=== PATIENT | male | born 1960 | race Caucasian/White ===

== ENCOUNTER 2016-03-11 15:41 | Inpatient (IN) | payer OTHER ==
--- NOTE | 2016-03-11 15:53 | ED Physician Chart ---
Chief Complaint/HPI - Patient Information Date Seen:: 03/11/16 Time Seen:: 15:45 Chief Complaint:: infection History of Present Illness:: 55-year-old male with history of metastatic colon cancer, ostomy site nephrostomy tube, brought in with acute, worsening, severe, abdominal wall infection for the past week. Has associated generalized weakness. Historian:: Patient, EMS Review:: Nurse's Note Reviewed, EMS run form Reviewed, Transfer documents Reviewed Review of Systems - Review of Systems Other: Complete system review otherwise unremarkable except as noted in HPI. Past Medical History - Past Medical History Past Medical History: Other (metastatic colon cancer, acute kidney failure, cachexia) Family History: None Social History: Non Smoker, No Alcohol, No Drug Use, Care Facility Surgical History: other (diverting colostomy partial colonic resection, nephrostomy tube placement) Psychiatricy History: None Medication: Reviewed Family Medical History - Family Member Mother History Unknown: Yes Other Medical History: denies family medical history Physical Exam - Physical Examination Other:: INITIAL VITAL SIGNS: Reviewed by me GENERAL: Alert and interactive. No acute distress. Cachectic HEAD: Head is normocephalic and atraumatic EYES: EOMI. . No scleral icterus. No conjunctival injection ENT: Moist mucous membranes. NECK: Supple. No masses. Full range of motion RESPIRATORY: No tachypnea. Clear breath sounds bilaterally. No wheezing, rales, or rhonchi CV: Regular rate and rhythm. No murmurs, rubs, or gallops ABDOMEN: There is an ostomy bag and nephrostomy tube. The mid abdomen around the umbilicus is an open abscess wound with purulent discharge and surrounding erythema and cellulitis. EXTREMITIES: No deformity. No cyanosis. No edema. SKIN: Warm and dry. No obvious rashes. NEUROLOGIC: Alert and oriented. Face is symmetric. Speech is normal. Moves all extremities equally. Motor and sensory distally intact. Labs/Radiology/EKG Results - Lab Results Results: Lab Results 03/11/16 03/11/16 03/11/16 Range/Units 16:00 16:00 16:00 WBC 9.4 (4.8-10.8) Th/cmm RBC 2.59 L (4.30-5.70) Mil/cmm Hgb 7.2 L* (13.2-17.3) gm/dL Hct 21.6 L* (39.0-49.0) % MCV 83.4 (80-99) fl MCH 27.6 (26.0-30.0) pg MCHC Differential 33.1 (28.0-36.0) pg RDW 15.5 (11.5-20.0) % Plt Count 293 (150-400) Th/cmm MPV 7.3 fl Band Neutrophils % 6 (0-10) % Neutrophils (Manual) 88 H (40-80) % Lymphocytes 3 L (20-50) % Monocytes 3 (2-10) % Eosinophils 0 (0-5) % Basophils 0 (0-3) % Platelet Estimate ADEQUATE (NORMAL) Platelet Morphology NORMAL (NORMAL) Anisocytosis 1+ RBC Morph Micro Appear ABNORMAL (NORMAL) PT 12.9 H (9.5-11.5) SECONDS INR 1.28 (0.5-1.4) PTT (Actin FS) 26.3 (26.0-38.0) SECONDS Sodium (136-145) mEq/L Potassium (3.5-5.1) mEq/L Chloride (98-107) mEq/L Carbon Dioxide (21.0-31.0) mEq/L Anion Gap (7.0-16.0) BUN (7-25) mg/dL Creatinine (0.7-1.3) mg/dL Est GFR ( Amer) ml/min Est GFR (Non-Af Amer) ml/min BUN/Creatinine Ratio Glucose (70-105) mg/dL Whole Bld Lactic Acid (0.60-2.00) mmol/L Calcium (8.6-10.3) mg/dL Total Bilirubin (0.3-1.0) mg/dL AST (13-39) U/L ALT (7-52) U/L Alkaline Phosphatase (34-104) U/L Total Protein (6.0-8.3) gm/dL Albumin (4.2-5.5) gm/dL Globulin gm/dL Albumin/Globulin Ratio (1.0-1.8) Urine Source [place] Urine Color YELLOW Urine Clarity CLEAR (CLEAR) Urine pH 5.5 Ur Specific [place] 1.015 (1.005-1.030) Urine Protein 30 H (NEGATIVE) mg/dL Urine Glucose (UA) NEGATIVE (NEGATIVE) mg/dL Urine Ketones NEGATIVE (NEGATIVE) mg/dL Urine Blood SMALL H (NEGATIVE) Urine Nitrate NEGATIVE (NEGATIVE) Urine Bilirubin NEGATIVE (NEGATIVE) Urine Urobilinogen 0.2 (0.2 - 1.0) E.U./dL Ur Leukocyte Esterase SMALL H (NEGATIVE) Urine RBC 0-2 H (0-5) /hpf Urine WBC 0-2 (0-5) /hpf Ur Epithelial Cells RARE (FEW) /lpf Urine Bacteria FEW (NONE SEEN) /hpf 03/11/16 03/11/16 Range/Units 16:00 16:00 WBC (4.8-10.8) Th/cmm RBC (4.30-5.70) Mil/cmm Hgb (13.2-17.3) gm/dL Hct (39.0-49.0) % MCV (80-99) fl MCH (26.0-30.0) pg MCHC Differential (28.0-36.0) pg RDW (11.5-20.0) % Plt Count (150-400) Th/cmm MPV fl Band Neutrophils % (0-10) % Neutrophils (Manual) (40-80) % Lymphocytes (20-50) % Monocytes (2-10) % Eosinophils (0-5) % Basophils (0-3) % Platelet Estimate (NORMAL) Platelet Morphology (NORMAL) Anisocytosis RBC Morph Micro Appear (NORMAL) PT (9.5-11.5) SECONDS INR (0.5-1.4) PTT (Actin FS) (26.0-38.0) SECONDS Sodium 122 L (136-145) mEq/L Potassium 4.9 (3.5-5.1) mEq/L Chloride 86 L (98-107) mEq/L Carbon Dioxide 24.0 (21.0-31.0) mEq/L Anion Gap 16.9 H (7.0-16.0) BUN 99 H* (7-25) mg/dL Creatinine 2.9 H (0.7-1.3) mg/dL Est GFR ( Amer) 29.1 ml/min Est GFR (Non-Af Amer) 24.0 ml/min BUN/Creatinine Ratio 34.1 Glucose 48 L (70-105) mg/dL Whole Bld Lactic Acid 0.91 (0.60-2.00) mmol/L Calcium 7.6 L (8.6-10.3) mg/dL Total Bilirubin 0.6 (0.3-1.0) mg/dL AST 21 (13-39) U/L ALT 16 (7-52) U/L Alkaline Phosphatase 84 (34-104) U/L Total Protein 6.6 (6.0-8.3) gm/dL Albumin 2.2 L (4.2-5.5) gm/dL Globulin 4.4 gm/dL Albumin/Globulin Ratio 0.5 L (1.0-1.8) Urine Source Urine Color Urine Clarity (CLEAR) Urine pH Ur Specific [place] (1.005-1.030) Urine Protein (NEGATIVE) mg/dL Urine Glucose (UA) (NEGATIVE) mg/dL Urine Ketones (NEGATIVE) mg/dL Urine Blood (NEGATIVE) Urine Nitrate (NEGATIVE) Urine Bilirubin (NEGATIVE) Urine Urobilinogen (0.2 - 1.0) E.U./dL Ur Leukocyte Esterase (NEGATIVE) Urine RBC (0-5) /hpf Urine WBC (0-5) /hpf Ur Epithelial Cells (FEW) /lpf Urine Bacteria (NONE SEEN) /hpf Assessment - Assessment General Assessment: Critical Care Time: 35 minutes Treatments/Evaluations: Close monitoring and treatment of unstable vital signs, cardiorespiratory, and neurologic status, while maintaining tight balance of fluid, respiratory, and cardiac interventions. This time includes discussing the case with the patient and the patient's family. This time does not include all procedures stated elsewhere in this record. This time also includes reviewing old records, labs and radiological studies. This time includes examining and re-examining the patient. Additionally, this time also includes arranging care with admitting and consulting physicians. Excludes all billable procedures: Yes This condition life threatening/high prob of deterioration: Yes ED Septic Shock - . Is Septic Shock (SBP<90, OR Lactate>4 mmol\L) present?: No Reassessment (Disposition) - Reassessment Reassessment:: Patient has metastatic colon cancer. He has multiple issues happening. #1 he has a very severe abscess on the abdomen with surrounding cellulitis. Concerned about a fistula in track and may return for this abscess. He received IV vancomycin for this. This BUNs is 99. He received IV fluids. He has severe hyponatremia. His blood glucose was 40s, received IV D50. Hemoglobin is 7.2. We did order 2 units of PRBCs to be transfused stat given that the blood pressure was 92 systolic and was likely flirting with hemodynamic instability. Discussed the case in detail with Dr. Wynn. He expressed good understanding of all the patient's issues. He will admit the patient to his service for further workup and treatment. Reassessment Condition:: Improved - Diagnosis Diagnosis:: Abdominal wall cellulitis with abdominal abscess Acute anemia, unspecified Hypoglycemia Hyponatremia Severely elevated BUN Metastatic colon cancer - Patient Disposition Discharge/Transfer:: Acute Care w/in this hosp Admitted to:: Telemetry Admitting Medical Physician:: Cas Wynn Time:: 17:10 Condition at Disposition:: Improved
[2016-03-11] MEDS ORDERED: Sodium Chloride 0.9% 1,000 ML IV ONE (15:54)
[2016-03-11 16:12] LABS: MEAN CELL VOLUME 83.4 fl (80-99); MEAN PLATELET VOLUME 7.3 fl
[2016-03-11 16:14] LABS: MEAN CORPUSCULAR HEMOGLOBIN 27.6 pg (26.0-30.0); MEAN CORPUSCULAR HGB CONC 33.1 pg (28.0-36.0); PLATELET COUNT 293 Th/cmm (150-400); RED BLOOD COUNT 2.59 Mil/cmm (4.30-5.70); RED CELL DISTRIBUTION WIDTH 15.5 % (11.5-20.0); WHITE BLOOD COUNT 9.4 Th/cmm (4.8-10.8)
[2016-03-11 16:28] LABS: HEMATOCRIT 21.6 % (39.0-49.0); HEMOGLOBIN 7.2 gm/dL (13.2-17.3)
[2016-03-11 16:32] LABS: ALB/GLOB RATIO 0.5 (1.0-1.8); ANION GAP 16.9 (7.0-16.0); BILIRUBIN,TOTAL 0.6 mg/dL (0.3-1.0); BUN/CREATININE RATIO 34.1; CALCIUM SERUM 7.6 mg/dL (8.6-10.3); CREATININE - SERUM 2.9 mg/dL (0.7-1.3); POTASSIUM SERUM 4.9 mEq/L (3.5-5.1)
[2016-03-11 16:36] LABS: URINE BILIRUBIN NEGATIVE (NEGATIVE); URINE COLOR YELLOW; URINE GLUCOSE (UA) NEGATIVE (NEGATIVE); URINE KETONE NEGATIVE (NEGATIVE)
[2016-03-11 16:37] LABS: URINE BACTERIA FEW /hpf (NONE SEEN); URINE BLOOD SMALL (NEGATIVE); URINE EPITHELIAL CELLS RARE /lpf (FEW); URINE PH 5.5; URINE PROTEIN 30 mg/dL (NEGATIVE); URINE RBC 0-2 /hpf (0-5); URINE UROBILINOGEN 0.2 E.U./dL (0.2 - 1.0); URINE WBC 0-2 /hpf (0-5)
[2016-03-11 16:39] LABS: INR 1.28 (0.5-1.4); PROTHROMBIN TIME (TEST) 12.9 SECONDS (9.5-11.5)
[2016-03-11] MEDS ORDERED: Dextrose 50% 50 mL Abboject IVP STA (16:52)
[2016-03-11] MEDS ORDERED: Dextrose 50% 50 mL Abboject IVP ONE (16:53)
[2016-03-11 16:59] LABS: ANISOCYTOSIS 1+; BAND NEUTROPHILE 6 % (0-10); BASOPHIL 0 % (0-3); EOSINOPHIL 0 % (0-5); NEUTROPHILS 88 % (40-80); PLATELET ESTIMATE ADEQUATE (NORMAL); PLATELET MORPHOLOGY NORMAL (NORMAL); TOTAL CELLS COUNTED 100
[2016-03-11] MEDS ORDERED: Sodium Chloride 0.9% 1,000 ML IV SCH (18:37)
[2016-03-11] MEDS ORDERED: Diatrizoate Meglumine/Diatri 30 mL Sol ONE (19:22)
[2016-03-12 04:23] LABS: % BASOPHILS 0.1 % (0.0-2.0); % EOSINOPHILS 0.2 % (0.0-5.0); % LYMPHOCYTES 5.2 % (20.0-50.0); % MONOCYTES 5.3 % (2.0-10.0); % NEUTROPHILS 89.2 % (40.0-80.0); MEAN CORPUSCULAR HEMOGLOBIN 28.8 pg (26.0-30.0); MEAN CORPUSCULAR HGB CONC 33.9 pg (28.0-36.0); MEAN PLATELET VOLUME 7.3 fl; NEUTROPHILE ABSOLUTE 8.4 Th/cmm (1.8-8.0); RED BLOOD COUNT 2.69 Mil/cmm (4.30-5.70); RED CELL DISTRIBUTION WIDTH 14.8 % (11.5-20.0); WHITE BLOOD COUNT 9.4 Th/cmm (4.8-10.8)
[2016-03-12 04:27] LABS: HEMOGLOBIN 7.7 gm/dL (13.2-17.3)
[2016-03-12 04:28] LABS: HEMATOCRIT 22.8 % (39.0-49.0)
[2016-03-12 04:30] LABS: PLATELET COUNT 214 Th/cmm (150-400)
[2016-03-12 04:34] LABS: ALB/GLOB RATIO 0.5 (1.0-1.8); ANION GAP 12.8 (7.0-16.0); BILIRUBIN,TOTAL 1.5 mg/dL (0.3-1.0); BUN/CREATININE RATIO 33.6; CARBON DIOXIDE 24.9 mEq/L (21.0-31.0); CREATININE - SERUM 2.8 mg/dL (0.7-1.3); MAGNESIUM 2.2 mg/dL (1.9-2.7); POTASSIUM SERUM 4.7 mEq/L (3.5-5.1)
[2016-03-12] MEDS ORDERED: MORPHINE SULFATE PO SCH (09:00)
[2016-03-12] MEDS ORDERED: PPN D20%/AMI 8.5% IV SCH (10:30)
--- NOTE | 2016-03-12 10:41 | Diagnostic Imaging Report ---
Portable chest x-ray History: Cough Allowing for portable technique the heart size is normal. No focal pulmonary parenchymal processes. No hilar or mediastinal abnormalities. Impression: No acute abnormalities.
--- NOTE | 2016-03-12 10:50 | History & Physical ---
CHIEF COMPLAINT: Abdominal pain, abdominal redness, swelling. HISTORY OF PRESENT ILLNESS: This is a 55-year-old gentleman who underwent a colostomy about a year ago after he was diagnosed with metastatic colon cancer. He apparently also underwent a nephrostomy placement at that time and has been doing relatively well until a few days ago when he started noticing swelling, redness and now drainage from the ostomy site. He could not specify as to how long the problem has been ongoing, but it has been at least for a few weeks. He is a poor historian, but he denies any fever, chills or any UTI symptomatology. Pertinent findings on admission include H and H 10/02 and sodium of 122, BUN 99, creatinine 2.9. The patient has been admitted to telemetry for further management and care. PAST MEDICAL HISTORY: As noted above, metastatic colon cancer with partial colonic resection, partial colostomy, also history of nephrostomy tube placement. FAMILY HISTORY: Likely noncontributory. SOCIAL HISTORY: He currently denies any smoking. No alcohol. No drug usage. Lives at care facility. ALLERGIES: NKDA. OUTPATIENT MEDICATIONS: MS Contin 90 mg q. 8 hours, Lasix 40 mg every day, hydromorphone 6 mg q. 1 hour p.r.n., Sinemet 650 q. 6 p.r.n. for mild to moderate pain, lorazepam 0.5 q. 6 p.r.n. for anxiety and Compazine 10 mg q. 6 for nausea and vomiting. REVIEW OF SYSTEMS: CONSTITUTIONAL: He denies any fever or chills. CARDIAC: No chest pain or palpitations. PULMONARY: No cough or phlegm production. GASTROINTESTINAL: He denies any nausea, vomiting, any diarrhea noted from the ostomy bag, any constipation, any bloody stools. GENITOURINARY: Denies any dysuria, hematuria, or anuria. PHYSICAL EXAMINATION: VITAL SIGNS: Temperature 97.3, pulse 75, blood pressure 76/51, respirations 18, satting 96-98% on room air. GENERAL: He is a well-developed, thin, cachectic appearing male, not in acute distress. HEAD AND NECK: Normocephalic, atraumatic. Pupils are reactive to light. CARDIOVASCULAR: Regular rate and rhythm. LUNGS: Decreased but clear to auscultation bilaterally. ABDOMEN: There is an extensive area of redness and swelling from the umbilical area down to the nephrostomy tube. There is a surrounding erythema. There is an open abscess around the wound. It is warm to touch. The ostomy bag appears to be in place. EXTREMITIES: Lower extremities, there is no clubbing, cyanosis or edema. LABORATORY DATA: White blood cells 9.4, H and H 7/21 with 88% neutrophils. INR is 1.28. Sodium 122, potassium 4.9, chloride 86, CO2 24, BUN 99, creatinine 2.9, glucose 48, calcium 7.6. LFTs were essentially within normal limits. Albumin 2.2. Lipase is 7. UA shows small blood, small leukocyte esterase. DIAGNOSTICS AND PROCEDURES: There was a CT of the abdomen and pelvis done with p.o. 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 There are few pockets of gas noted likely extraluminal, questionable pelvic mass and bilateral nephrostomies. IMPRESSION: 1. 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 2. Anemia. 3. Azotemia/renal insufficiency. 4. Hyponatremia. 5. History of colon cancer, status post partial resection with cholecystectomy. 6. History of nephrostomy tube. PLAN: The patient has been admitted to telemetry for close monitoring. The patient has been placed on IV vancomycin and has been cultured from the wound. He also has been placed on IV fluids NS at 100 mL per hour. Two units of PRBC had been transfused. His Lasix has been withheld for the time being and a surgical as well as a nephro eval have also been ordered. An ultrasound of the abdomen will be asked for and will consider CT scan with IV contrast once his renal function improves. Daily labs will be done. JOB# [id number] DANIELITO
--- NOTE | 2016-03-12 11:40 | Diagnostic Imaging Report ---
CT scan of the abdomen without intravenous contrast HISTORY: Pain, fistula, abscess Total DLP equals 205 CTDI equals 6.4 Axial sections were obtained from the xiphoid process down to the iliac crest. Exam is very limited due to a paucity of intra-abdominal fat. Poor delineation of organ margins and bowel wall margins. No focal lesions seen within the liver. The spleen appears normal. There is a somewhat dilated air-filled contrast-filled stomach. The margins of the pancreas are not well visualized. The right kidney is associated with a nephrostomy tube. Poor delineation of the renal collecting system. This poor delineation the margin of the left kidney that is also associated with a nephrostomy tube without obvious severe hydronephrosis. Limited visualization of the upper pelvis is very limited. Again, bowel wall margins and margins of the musculature cannot be clearly defined. IMPRESSION: 1. Very Limited/suboptimal exam. The pelvis is not included in the examination. 2. Findings consistent with ostomy over the lower mid abdomen. There appears to be contrast within the subcutaneous tissues suggesting cutaneous enteric fistula. An antegrade contrast CT exam through the ostomy may be helpful for further assessment. 3. Bilateral nephrostomy tubes
[2016-03-12] MEDS: HYDROmorphone 2 mg/mL 1mL Vial IVP PRN (12:14)
--- NOTE | 2016-03-12 15:33 | Diagnostic Imaging Report ---
Abdominal ultrasound (Limited), abdominal wall Sonographic sector images obtained about the patient's ostomy site. Images are very limited. There is an approximate 19.0 x 8.6 x 19.3 cm heterogeneous area in the upper abdomen. A mass cannot be excluded. A dedicated CT scan of the entire abdomen and pelvis with intravenous and bowel contrast would provide further assessment. As previously noted in a prior CT report, antegrade contrast through the patient's reported draining sinus would provide for assessment of fistula formation. Intra-abdominal organs are not delineated. IMPRESSION: 1. Suboptimal/Limited exam. Intra-abdominal organs were not evaluated. 2. Suggestion of a heterogeneous density/mass within the mid abdomen. Margins cannot be clearly evaluated. A dedicated entire CT scan of the abdomen AND pelvis with oral and IV contrast would provide additional assessment.
[2016-03-12] MEDS ORDERED: D5-0.9%NS 1,000 ML IV SCH (16:00)
[2016-03-13] MEDS: HYDROmorphone 2 mg/mL 1mL Vial IVP PRN ×2 (01:37→12:21)
[2016-03-13 03:45] LABS: ALB/GLOB RATIO 0.6 (1.0-1.8); BILIRUBIN,TOTAL 1.4 mg/dL (0.3-1.0); CALCIUM SERUM 7.3 mg/dL (8.6-10.3)
[2016-03-13 03:48] LABS: POTASSIUM SERUM 6.9 mEq/L (3.5-5.1)
[2016-03-13 04:48] LABS: ANION GAP 16.2 (7.0-16.0); BUN/CREATININE RATIO 39.6; CARBON DIOXIDE 19.7 mEq/L (21.0-31.0); CREATININE - SERUM 2.3 mg/dL (0.7-1.3); MAGNESIUM 2.7 mg/dL (1.9-2.7)
--- NOTE | 2016-03-13 06:06 | Admit Criteria Form ---
Admit Criteria Forms - Admit Criteria Diagnosis: HYPONATREMIA; HYPERNATREMIA; HYPOKALEMIA; HYPERKALEMIA; HYPOCALCEMIA; HYPERCALCEMIA Clinical Indications for Inpatient Care (Place 'X' for any and all applicable criteria): Ongoing inpatient care may be indicated for ANY ONE of the following [G](1)(2)(3 )(5): [ X]I. Hyponatremia with ANY ONE of the following: [ X]a) Sodium less than 130 mEq/L (mmol/L) (new) (6)(22) [ ]b) Sodium less than 135 mEq/L (mmol/L) with ANY ONE of the following: [ ]i) Severe medical etiology requiring inpatient management (eg, heart failure, hypovolemia) [ ]ii) Altered mental status [ ]iii) Seizures [ ]II. Hypernatremia with ANY ONE of the following: [ ]a) Sodium greater than 155 mEq/L (mmol/L) [ ]b) Sodium greater than 150 mEq/L (mmol/L) with ANY ONE of the following: [ ] i) Altered mental status [ ]ii) Seizures [ ]iii) Severe medical etiology (eg, hypovolemia, diabetes insipidus) [ ]iv) Severe weakness [ ]v) Severe medical etiology (eg, hemolysis, infection, drug overdose) [ ]III. Hypokalemia with ANY ONE of the following: [ ]a) Potassium less than 2.5 mEq/L (mmol/L) despite outpatient and emergency treatment [ ]b) Potassium less than 3.0 mEq/L (mmol/L) with ANY ONE of the following: [ ]i) Weakness [ ]ii) Cardiac abnormality (eg, arrhythmia, conduction disturbance) [ ]iii) Cardiac ischemia [ ]iv) Ileus [ ]v) Ongoing medical cause requiring inpatient management. ( e.g., acute renal wasting, SIADH) [ ]vi) Other severe symptoms [ ] IV. Hyperkalemia with ANY ONE of the following: [ ]a) Potassium greater than 6.5 mEq/L (mmol/L) [ ]b) Potassium greater than 5 mEq/L (mmol/L) with ANY ONE of the following: [ ]i) Severe ECG findings [H] [ ]ii) Acute worsening of renal failure (creatinine greater than 2.5 mg/dL (221 micromoles/L) or significant elevation for age and size) [ ] V. Hypocalcemia with ANY ONE of the following: [ ]a) Calcium less than 7 mg/dL (1.75 mmol/L) despite outpatient and emergency treatment(19) [ ]b) Calcium less than 8 mg/dL (2 mmol/L) with significant symptoms or findings; examples include: [ ]i) Cardiac abnormality (eg, arrhythmia or conduction disturbance) [ ]ii) Altered mental status [ ]iii) Seizures [ ]iv) Breathing difficulty [ ]v) Muscle spasms [ ]. Hypercalcemia with ANY ONE of the following: [ ]a) Calcium greater than 14 mg/dL (3.5 mmol/L) [ ]b) Calcium greater than 12 mg/dL (3 mmol/L) with ANY ONE of the following: [ ]i) Significant dehydration or hypovolemia as indicated by ANY ONE of the following(2): [ ]1. Clinically significant dehydration as indicated by ANY ONE of the following: [ ]A. Acute loss of weight from baseline (5% of body weight in adults, 9% in pediatric patients) [ ]B. Hemodynamic instability [ ]C. Acute renal failure [ ]D. Serum sodium greater than 150 mEq/L (mmol/L) [ ]2) Dehydration that is persistent indicated by ALL of the following: [ ]A. Oral rehydration therapy not tolerated or insufficient to adequately correct dehydration [ ]B. Appropriate intravenous treatment (eg, fluids ) does not readily correct dehydration ie, after 12 to 24 hours of treatment) [ ]ii) Significant symptoms or findings; examples include: [ ]1) Altered mental status [ ]2) Cardiac abnormality (eg, arrhythmia, conduction disturbance) [ ]3) Cardiac abnormality (eg, arrhythmia, conduction disturbance) The original [facility] content created by [employer] has been revised. The portions of the content which have been revised are identified through the use of italic text or in bold, and [facility] has neither reviewed nor approved the modified material. All other unmodified content is copyright [facility] Please see references footnoted in the original [facility] edition 2016
[2016-03-13 07:37] LABS: MEAN CELL VOLUME 86.7 fl (80-99); MEAN CORPUSCULAR HEMOGLOBIN 29.6 pg (26.0-30.0); MEAN CORPUSCULAR HGB CONC 34.2 pg (28.0-36.0); MEAN PLATELET VOLUME 7.5 fl; RED BLOOD COUNT 3.46 Mil/cmm (4.30-5.70); RED CELL DISTRIBUTION WIDTH 14.4 % (11.5-20.0); WHITE BLOOD COUNT 10.7 Th/cmm (4.8-10.8)
[2016-03-13 07:50] LABS: ALB/GLOB RATIO 0.5 (1.0-1.8); ANION GAP 14.2 (7.0-16.0); BUN/CREATININE RATIO 40.9; CALCIUM SERUM 7.2 mg/dL (8.6-10.3); CARBON DIOXIDE 18.4 mEq/L (21.0-31.0); CREATININE - SERUM 2.3 mg/dL (0.7-1.3); MAGNESIUM 2.4 mg/dL (1.9-2.7); PHOSPHOROUS 5.9 mg/dL (2.5-5.0); URIC ACID 11.2 mg/dL (4.4-7.6)
[2016-03-13 07:53] LABS: HEMOGLOBIN 10.3 gm/dL (13.2-17.3); PLATELET COUNT 156 Th/cmm (150-400)
[2016-03-13 08:00] LABS: VANCOMYCIN RANDOM 18.4 ug/mL (5.0-40.0)
[2016-03-13 08:01] LABS: POTASSIUM SERUM 4.6 mEq/L (3.5-5.1)
[2016-03-13 08:12] LABS: BAND NEUTROPHILE 15 % (0-10); BASOPHIL 0 % (0-3); EOSINOPHIL 0 % (0-5); NEUTROPHILS 80 % (40-80); TOTAL CELLS COUNTED 100
[2016-03-13 08:13] LABS: ANISOCYTOSIS 1+; PLATELET ESTIMATE ADEQUATE (NORMAL); PLATELET MORPHOLOGY NORMAL (NORMAL)
--- NOTE | 2016-03-13 08:43 | Consultation ---
ATTENDING PHYSICIAN: Cas Wynn M.D. The patient came in because of abdominal pain. DEALER ANALYST: Leonard Rogel M.D. CHIEF COMPLAINT: As mentioned, the patient came in because of abdominal pain. HISTORY OF PRESENT ILLNESS: This is a 55-year-old male with past medical history of metastatic colon CA, who came in because of abdominal pain. A few days prior to admission, he noted abscess draining out of his upper gastric stoma. This was associated with worsening erythema and tenderness. It has affected his oral intake and eventually became weak. He then proceeded to the Emergency Room. His white count was 9.4, with hemoglobin/hematocrit of 7.2/21.6. CT scan of the abdomen revealed contrast from the ostomy site to subcutaneous tissues suggestive of enterocutaneous fistula and there was also presence of bilateral nephrostomy tubes. He also has bilateral nephrostomy tubes, but there was no obvious hydronephrosis. He denied any nausea and vomiting as well as diarrhea. PAST MEDICAL HISTORY: 1. Metastatic colon CA. 2. Anemia of chronic disease. 3. Severe malnutrition. 4. 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 5. History of ESBL urine. PAST SURGICAL HISTORY: 1. Status post partial colectomy with left colostomy bag. 2. Status post bilateral percutaneous nephrostomy tubes. CURRENT MEDICATIONS: Currently on Dilaudid, Ativan, vancomycin, Compazine. ALLERGIES: No known drug allergies. SOCIAL AND FAMILY HISTORY: I was unable to obtain directly from the patient because he is quite drowsy. REVIEW OF SYSTEMS: GENERAL: Again, I was unable to decipher directly from the patient. As per transfer notes, the patient had no fever, no chills. However, his oral intake is very, very poor. HEENT: No mention of headaches, no dizziness. CARDIORESPIRATORY: No mention of chest pain, palpitations, diaphoresis or cough. GASTROINTESTINAL: History of metastatic colon CA. He did complain of some abdominal pain. He has abscess draining out of his stoma. He also has abdominal tenderness. No diarrhea nor vomiting. HEMATOLOGIC: He has a very severe anemia, likely acute on chronic disease. MUSCULOSKELETAL: Multiple joint arthralgias. GENITOURINARY: He developed acute kidney injury due to severe dehydration. NEUROPSYCHIATRIC: No syncopal episode nor seizure activity. He has encephalopathy. PHYSICAL EXAMINATION: GENERAL: The patient is, as mentioned, drowsy, unable to complete his sentences. Very cachectic. VITAL SIGNS: His blood pressure is 94/60, pulse is 72, temperature 97.6 degrees. SKIN: Poor turgor, warm. No rash or jaundice appreciated. HEENT: Head: Normocephalic, atraumatic. Eyes: Extraocular muscles intact. Pupils equal, round, reactive to light and accommodates. Anicteric sclerae. Pale conjunctivae. Nose: Midline nasal septum. Mouth: Very dry mucosa, very poor dentition. NECK: Supple. No adenopathy. No thyromegaly. No bruits. Trachea palpated in the midline. CHEST/CVS: S1, S2. No rub, murmur nor gallop appreciated. Point of maximal impulse is in fifth intercostal space, left midclavicular line. No abdominal or femoral bruits appreciated. LUNGS: Equal expansion. No use of accessory muscles. No supraclavicular retractions. Decreased breath sounds. Clear to auscultation without any wheeze. ABDOMEN: Scaphoid, soft. Positive for bowel sounds. Presence of upper mid abdomen stoma with some drainage, presence of left lower quadrant colostomy bag, no bruits either diastolic or systolic. RECTAL: Deferred. GENITOURINARY: Normal-appearing male genitalia. Presence of bilateral nephrostomy tubes, which are intact. EXTREMITIES: No evidence of any edema, cyanosis nor clubbing. NEUROLOGIC EXAM: As mentioned, the patient is drowsy, unable to follow my neuro commands, very weak, so I was unable to pursue further my neuro exam. He has voluntary movements of his extremities. LABORATORY DATA: Sodium is 124, potassium 4.7, chloride 91, bicarbonate 24, BUN 94, creatinine 2.8, glucose 60. White count 9.4, hemoglobin 7.7, hematocrit 22.8, polys 89.2%, platelets 214. Calcium 7, magnesium 2.2, albumin 1.9. Urinalysis: Nitrites negative, leukocyte esterase small, phosphorus 0.2, white count 0-2. IMPRESSION: 1. Acute kidney injury, MDRD GFR 15 mL per minute. The patient has a history of metastatic colon carcinoma. He has had very poor appetite for several weeks. Unable to tolerate oral intake. At the same time, he is also taking Lasix. Thus, he was not able to replenish his sensible and insensible fluid losses. He developed severe dehydration. This was associated with a decrease in his effective circulating volume. His prerenal azotemia eventually progressed to acute tubular injury. 2. Abdominal wall cellulitis with abscess. 3. Possible enterocutaneous fistula. 4. Metastatic colon carcinoma with partial colectomy and left colostomy bag. 5. Hyponatremia, secondary to increased sodium loss due to intake of Lasix. 6. Possible bilateral ureteral stenosis/obstruction with bilateral percutaneous nephrostomy tubes. 8. Anemia, acute on chronic (malignancy) disease, possible gastrointestinal bleed. 9. Severe malnutrition. 10. Hypoglycemia, secondary to malnutrition. PLAN: 1. Continue on IV fluids. 2. Urine sodium, eosinophils and creatinine. 3. Urine microalbumin to creatinine ratio. 4. Encouraged p.o. intake. 5. Supplement his diet. 6. Serum electrolytes, uric acid, serum osmolality. Thank you, Dr. Wynn, for this consult. I will follow the patient closely with you. [facility]# [id number]
[2016-03-13] MEDS: DEXTROSE IV SCH (16:32)
[2016-03-13] MEDS: [UNRECOGNIZED DRUG - OTHER] IV SCH (16:32)
[2016-03-13] MEDS: AMINO ACIDS IV SCH (16:32)
[2016-03-13] MEDS: MULTIVITAMIN IV SCH (16:32)
[2016-03-13] MEDS: INSULIN ASPART SLIDING SCALE 100 UNITS/ML UNIT SUBQ SCH ×2 (16:33→20:39)
[2016-03-14 05:35] LABS: HEMATOCRIT 28.8 % (39.0-49.0); HEMOGLOBIN 9.7 gm/dL (13.2-17.3); MEAN CELL VOLUME 85.7 fl (80-99); MEAN CORPUSCULAR HEMOGLOBIN 28.7 pg (26.0-30.0); MEAN CORPUSCULAR HGB CONC 33.5 pg (28.0-36.0); MEAN PLATELET VOLUME 7.3 fl; PLATELET COUNT 126 Th/cmm (150-400); RED BLOOD COUNT 3.36 Mil/cmm (4.30-5.70); RED CELL DISTRIBUTION WIDTH 14.9 % (11.5-20.0)
[2016-03-14 05:37] LABS: WHITE BLOOD COUNT 7.8 Th/cmm (4.8-10.8)
[2016-03-14] MEDS: HYDROmorphone 2 mg/mL 1mL Vial IVP PRN ×2 (05:50→17:23)
[2016-03-14] MEDS: Sodium Chloride 0.9% 1,000 ML IV SCH (05:50)
[2016-03-14 05:57] LABS: ALB/GLOB RATIO 0.5 (1.0-1.8); BILIRUBIN,TOTAL 0.4 mg/dL (0.3-1.0); BUN/CREATININE RATIO 39.5; CALCIUM SERUM 7.1 mg/dL (8.6-10.3); CREATININE - SERUM 1.9 mg/dL (0.7-1.3); MAGNESIUM 2.3 mg/dL (1.9-2.7)
[2016-03-14 06:12] LABS: BAND NEUTROPHILE 13 % (0-10); EOSINOPHIL 1 % (0-5); NEUTROPHILS 77 % (40-80); TOTAL CELLS COUNTED 100
[2016-03-14 06:21] LABS: PLATELET ESTIMATE DECREASED PLATELETS (NORMAL); PLATELET MORPHOLOGY NORMAL (NORMAL)
[2016-03-14] MEDS: INSULIN ASPART SLIDING SCALE 100 UNITS/ML UNIT SUBQ SCH ×4 (06:46→21:12)
--- NOTE | 2016-03-14 10:27 | Diagnostic Imaging Report ---
Portable chest x-ray HISTORY: Shortness of breath, vascular catheter placement Compared with the prior exam of 03/11/2016, a left-sided vascular catheter is been inserted. The tip is in the region was. Vena cava. No focal pulmonary processes. IMPRESSION: 1. New vascular catheter with tip in the region of the superior vena cava near the junction with the right atrium.
[2016-03-14] MEDS: MULTIVITAMIN IV SCH (13:29)
[2016-03-14] MEDS: DEXTROSE IV SCH (13:29)
[2016-03-14] MEDS: [UNRECOGNIZED DRUG - OTHER] IV SCH (13:29)
[2016-03-14] MEDS: AMINO ACIDS IV SCH (13:29)
[2016-03-15] MEDS: Sodium Chloride 0.9% 1,000 ML IV SCH ×2 (02:34→16:59)
[2016-03-15 05:22] LABS: HEMATOCRIT 26.6 % (39.0-49.0); HEMOGLOBIN 8.8 gm/dL (13.2-17.3); MEAN CELL VOLUME 87.2 fl (80-99); MEAN CORPUSCULAR HEMOGLOBIN 28.8 pg (26.0-30.0); RED BLOOD COUNT 3.05 Mil/cmm (4.30-5.70); RED CELL DISTRIBUTION WIDTH 15.2 % (11.5-20.0)
[2016-03-15 05:27] LABS: WHITE BLOOD COUNT 5.5 Th/cmm (4.8-10.8)
[2016-03-15 05:36] LABS: BUN - UREA NITROGEN 51 mg/dL (7-25); BUN/CREATININE RATIO 36.4; CARBON DIOXIDE 16.4 mEq/L (21.0-31.0); CHLORIDE 110 mEq/L (98-107); CREATININE - SERUM 1.4 mg/dL (0.7-1.3); GLUCOSE 100 mg/dL (70-105); MAGNESIUM 1.9 mg/dL (1.9-2.7); PHOSPHOROUS 1.2 mg/dL (2.5-5.0); POTASSIUM SERUM 3.4 mEq/L (3.5-5.1); SODIUM SERUM 132 mEq/L (136-145)
[2016-03-15] MEDS: INSULIN ASPART SLIDING SCALE 100 UNITS/ML UNIT SUBQ SCH ×4 (06:50→21:07)
[2016-03-15 07:49] LABS: BAND NEUTROPHILE 12 % (0-10); EOSINOPHIL 1 % (0-5); NEUTROPHILS 79 % (40-80); PLATELET ESTIMATE DECREASED PLATELETS (NORMAL); PLATELET MORPHOLOGY GIANT PLATELETS SEEN (NORMAL); TOTAL CELLS COUNTED 100
[2016-03-15] MEDS ORDERED: DEXTROSE IV ONE (09:00)
[2016-03-15] MEDS ORDERED: SODIUM PHOSPHATE IV ONE (09:00)
[2016-03-15] MEDS: HYDROmorphone 2 mg/mL 1mL Vial IVP PRN ×2 (11:44→17:45)
[2016-03-15] MEDS: MULTIVITAMIN IV SCH (19:06)
[2016-03-15] MEDS: AMINO ACIDS IV SCH (19:06)
[2016-03-15] MEDS: DEXTROSE IV SCH (19:06)
[2016-03-15] MEDS: [UNRECOGNIZED DRUG - OTHER] IV SCH (19:06)
[2016-03-16] MEDS: HYDROmorphone 2 mg/mL 1mL Vial IVP PRN ×4 (00:14→15:43)
[2016-03-16] MEDS: INSULIN ASPART SLIDING SCALE 100 UNITS/ML UNIT SUBQ SCH ×4 (07:34→21:40)
[2016-03-16] MEDS: Sodium Chloride 0.9% 1,000 ML IV SCH ×2 (07:35→15:52)
[2016-03-16 07:50] LABS: ANION GAP 8.6 (7.0-16.0); BUN - UREA NITROGEN 36 mg/dL (7-25); CALCIUM SERUM 7.1 mg/dL (8.6-10.3); CHLORIDE 114 mEq/L (98-107); CREATININE - SERUM 1.2 mg/dL (0.7-1.3); GLUCOSE 114 mg/dL (70-105); MAGNESIUM 1.7 mg/dL (1.9-2.7); PHOSPHOROUS 1.5 mg/dL (2.5-5.0); POTASSIUM SERUM 3.6 mEq/L (3.5-5.1); SODIUM SERUM 135 mEq/L (136-145)
[2016-03-16] MEDS ORDERED: Mag Sulfate 2gm/50mL Premix 2 GM/50 ML BAG IV ONE (09:08)
[2016-03-16] MEDS ORDERED: Potassium Phosphate 20 MMOLE in Sodium Chloride 0.9% 250 ML IV ONE (10:00)
[2016-03-16] MEDS ORDERED: Sodium Phosphate 30 MMOLE in Sodium Chloride 0.9% 250 ML IV ONE (10:00)
[2016-03-16] MEDS: Polyvinyl Alcohol Ophth Soln 15 mL Bottle EACH EYE SCH ×3 (10:23→21:35)
[2016-03-16] MEDS: DEXTROSE IV SCH (21:15)
[2016-03-16] MEDS: AMINO ACIDS IV SCH (21:15)
[2016-03-16] MEDS: MULTIVITAMIN IV SCH (21:15)
[2016-03-16] MEDS: [UNRECOGNIZED DRUG - OTHER] IV SCH (21:15)
[2016-03-17] MEDS: Polyvinyl Alcohol Ophth Soln 15 mL Bottle EACH EYE SCH ×4 (04:00→22:15)
[2016-03-17] MEDS: HYDROmorphone 2 mg/mL 1mL Vial IVP PRN ×2 (05:39→15:21)
[2016-03-17 05:55] LABS: BUN - UREA NITROGEN 24 mg/dL (7-25); CALCIUM SERUM 6.6 mg/dL (8.6-10.3); CARBON DIOXIDE 14.6 mEq/L (21.0-31.0); CHLORIDE 116 mEq/L (98-107); CHOLESTEROL 45 mg/dL (<200); GLUCOSE 112 mg/dL (70-105); MAGNESIUM 1.8 mg/dL (1.9-2.7); PHOSPHOROUS 1.7 mg/dL (2.5-5.0); POTASSIUM SERUM 3.6 mEq/L (3.5-5.1); SODIUM SERUM 135 mEq/L (136-145); TRIGLYCERIDES 51 mg/dL (<150)
[2016-03-17] MEDS: Sodium Chloride 0.9% 1,000 ML IV SCH (05:58)
[2016-03-17 07:42] LABS: MEAN CELL VOLUME 85.5 fl (80-99); MEAN CORPUSCULAR HEMOGLOBIN 28.9 pg (26.0-30.0); MEAN CORPUSCULAR HGB CONC 33.8 pg (28.0-36.0); MEAN PLATELET VOLUME 7.9 fl; RED BLOOD COUNT 2.66 Mil/cmm (4.30-5.70); RED CELL DISTRIBUTION WIDTH 15.2 % (11.5-20.0); WHITE BLOOD COUNT 4.7 Th/cmm (4.8-10.8)
[2016-03-17 07:48] LABS: HEMATOCRIT 22.8 % (39.0-49.0); HEMOGLOBIN 7.7 gm/dL (13.2-17.3)
[2016-03-17] MEDS ORDERED: Mag Sulfate 2gm/50mL Premix 2 GM/50 ML BAG IV ONE (08:08)
[2016-03-17] MEDS ORDERED: Sodium Chloride 0.9% 1,000 ML IV SCH ×2 (08:10→13:52)
[2016-03-17 08:21] LABS: BAND NEUTROPHILE 12 % (0-10); EOSINOPHIL 1 % (0-5); NEUTROPHILS 76 % (40-80); TOTAL CELLS COUNTED 100
[2016-03-17 08:22] LABS: ANISOCYTOSIS 1+; PLATELET ESTIMATE DECREASED PLATELETS (NORMAL); PLATELET MORPHOLOGY NORMAL (NORMAL)
[2016-03-17] MEDS: INSULIN ASPART SLIDING SCALE 100 UNITS/ML UNIT SUBQ SCH ×3 (09:30→16:43)
--- NOTE | 2016-03-17 11:30 | Diagnostic Imaging Report ---
CT scan abdomen and pelvis without intravenous contrast HISTORY: Pain, abscess, fistula Total DLP equals 415 CTDI equals 8.5 Axial sections were obtained from the xiphoid process down to the pubic symphysis following administration of intravenous contrast. Exam is compared with a prior study of 03/13/2016. Limited sections through the lower chest demonstrate interval development of moderate bilateral pleural effusions. The exam of the liver demonstrates an approximate 3.1 cm round hypodense focus in the right lobe with a small focus of hyperdensity that may be related to calcification noted on the earlier exam. Etiology is uncertain. Abscess formation cannot be excluded. The spleen appears normal. Increased ascites throughout the abdomen and pelvis since the prior study. Bilateral nephrostomy tubes are seen. No focal abnormality seen in the region of the pancreas. There is an approximate 6.0 cm defect along the anterior abdominal wall with protrusion of bowel into the subcutaneous tissues. No dilatation. The exam of the pelvis demonstrates what appears to be an approximate 11.0 x 10.0 cm complex mass. There exhibits solid and fluid components. Small air collections noted. Etiology remains uncertain. IMPRESSION: 1. Interval development of bilateral pleural effusions since the prior exam of 03/13/2016. 2. 3.1 cm round density within the right lobe of the liver. Etiology is indeterminate. Abscess formation cannot be excluded 3. Mild diffuse ascites throughout the abdomen and pelvis 4. Relatively large poorly defined complex pelvic mass. Etiology uncertain 5. Defect within the anterior abdominal wall with herniation of bowel into the subcutaneous tissues. 6. No change in bilateral nephrostomy catheters without hydronephrosis.
--- NOTE | 2016-03-17 11:52 | Diagnostic Imaging Report ---
CT scan abdomen and pelvis without intravenous contrast HISTORY: Pain, mass Total DLP equals 364 CTDI equals 7.7 The exam is extremely limited due to the absence of intravenous contrast and a marked paucity of intra-abdominal fat. The liver exhibits a bulbous contour. Faint calcifications noted in the midportion of the liver of questionable significance and etiology. The spleen appears normal. The margins of the pancreas are not well delineated. Bilateral nephrostomy catheters are seen. Poor delineation of the kidneys with no obvious hydronephrosis. There appears to be a large defect along the anterior abdominal wall. Continuity with the skin surface and bowel cannot be clearly delineated. Correlation physical examination is needed. The exam of the pelvis demonstrates a large (greater than 10.0 cm) heterogeneous density. Small air collections are noted. Findings may be associated with a pelvic mass. Etiology uncertain. Correlation with patient's medical history and possible comparison with prior imaging studies is needed. The urinary bladder cannot be visualized. Again, there is obscuration of the margins of the adjacent musculature within the pelvis. IMPRESSION: 1. Very limited/suboptimal exam due to marked paucity of intra-abdominal fat and absence of oral/bilateral contrast. Poor delineation of the intra-abdominal organs and margins of bowel. 2. Apparent large poorly defined pelvic mass. Etiology uncertain. Correlation with patient's medical history and if possible comparison with prior imaging studies needed. 3. Small amount of ascites 4. Bilateral nephrostomy catheters with no obvious hydronephrosis 5. Apparent large defect within the anterior abdominal wall. Continuity of the skin surface and adjacent bowel cannot be clearly needed. Correlation with physical examination needed.
[2016-03-17] MEDS ORDERED: Potassium Phosphate 20 MMOLE in Sodium Chloride 0.9% 250 ML IV ONE (13:56)
[2016-03-17] MEDS ORDERED: Sodium Bicarbonate 8.4% 50mEq PFS IVP ONE (13:57)
--- NOTE | 2016-03-17 14:05 | General Progress Note ---
Subjective - Review of Systems Service Date: 03/17/16 Subjective: sleeping, comfortable, verbal Objective - Results Result Diagrams: 03/17/16 06:30 03/17/16 05:30 Recent Labs: Laboratory Last Values WBC 4.7 Th/cmm (4.8-10.8) L 03/17/16 06:30 RBC 2.66 Mil/cmm (4.30-5.70) L 03/17/16 06:30 Hgb 7.7 gm/dL (13.2-17.3) L* D 03/17/16 06:30 Hct 22.8 % (39.0-49.0) L* D 03/17/16 06:30 MCV 85.5 fl (80-99) 03/17/16 06:30 MCH 28.9 pg (26.0-30.0) 03/17/16 06:30 MCHC Differential 33.8 pg (28.0-36.0) 03/17/16 06:30 RDW 15.2 % (11.5-20.0) 03/17/16 06:30 Plt Count Th/cmm (150-400) 03/17/16 06:30 MPV 7.9 fl 03/17/16 06:30 Neutrophils % 89.2 % (40.0-80.0) H 03/12/16 04:04 Band Neutrophils % 12 % (0-10) H 03/17/16 06:30 Lymphocytes % 5.2 % (20.0-50.0) L 03/12/16 04:04 Monocytes % 5.3 % (2.0-10.0) 03/12/16 04:04 Eosinophils % 0.2 % (0.0-5.0) 03/12/16 04:04 Basophils % 0.1 % (0.0-2.0) 03/12/16 04:04 Neutrophils (Manual) 76 % (40-80) 03/17/16 06:30 Lymphocytes 6 % (20-50) L 03/17/16 06:30 Monocytes 5 % (2-10) 03/17/16 06:30 Eosinophils 1 % (0-5) 03/17/16 06:30 Basophils 0 % (0-3) 03/13/16 07:23 Platelet Estimate DECREASED PLATELETS (NORMAL) 03/17/16 06:30 Platelet Morphology NORMAL (NORMAL) 03/17/16 06:30 Anisocytosis 1+ 03/17/16 06:30 RBC Morph Micro Appear ABNORMAL (NORMAL) 03/17/16 06:30 Eos Smear Source URINE 03/13/16 10:10 Eos Smear Total Cells NONE SEEN (NONE SEEN) 03/13/16 10:10 PT 12.9 SECONDS (9.5-11.5) H 03/11/16 16:00 INR 1.28 (0.5-1.4) 03/11/16 16:00 PTT (Actin FS) 26.3 SECONDS (26.0-38.0) 03/11/16 16:00 Sodium 135 mEq/L (136-145) L 03/17/16 05:30 Potassium 3.6 mEq/L (3.5-5.1) 03/17/16 05:30 Chloride 116 mEq/L (98-107) H 03/17/16 05:30 Carbon Dioxide 14.6 mEq/L (21.0-31.0) L 03/17/16 05:30 Anion Gap 8.0 (7.0-16.0) 03/17/16 05:30 BUN 24 mg/dL (7-25) 03/17/16 05:30 Creatinine 1.0 mg/dL (0.7-1.3) 03/17/16 05:30 Est GFR ( Amer) > 60.0 ml/min 03/17/16 05:30 Est GFR (Non-Af Amer) > 60.0 ml/min 03/17/16 05:30 BUN/Creatinine Ratio 24.0 03/17/16 05:30 Glucose 112 mg/dL (70-105) H 03/17/16 05:30 POC Glucose 102 MG/DL (70 - 105) 03/17/16 11:33 Hemoglobin A1c % 4.9 % (4.0-6.0) 03/13/16 07:23 Whole Bld Lactic Acid 0.91 mmol/L (0.60-2.00) 03/11/16 16:00 Uric Acid 11.2 mg/dL (4.4-7.6) H 03/13/16 07:23 Calcium 6.6 mg/dL (8.6-10.3) L 03/17/16 05:30 Phosphorus 1.7 mg/dL (2.5-5.0) L 03/17/16 05:30 Magnesium 1.8 mg/dL (1.9-2.7) L 03/17/16 05:30 Ferritin 479 ng/mL (30-400) H 03/13/16 07:23 Total Bilirubin 0.4 mg/dL (0.3-1.0) 03/14/16 05:20 AST 26 U/L (13-39) 03/14/16 05:20 ALT 24 U/L (7-52) 03/14/16 05:20 Alkaline Phosphatase 74 U/L (34-104) 03/14/16 05:20 Total Protein 5.2 gm/dL (6.0-8.3) L 03/14/16 05:20 Albumin 1.7 gm/dL (4.2-5.5) L 03/14/16 05:20 Globulin 3.5 gm/dL 03/14/16 05:20 Albumin/Globulin Ratio 0.5 (1.0-1.8) L 03/14/16 05:20 Triglycerides 51 mg/dL (<150) 03/17/16 05:30 Cholesterol 45 mg/dL (<200) 03/17/16 05:30 Lipase 7 U/L (11-82) L 03/12/16 04:04 Carcinoembryonic Ag 39.7 ng/mL (0.0-4.7) H 03/13/16 05:33 Urine Source [place] 03/11/16 16:00 Urine Color YELLOW 03/11/16 16:00 Urine Clarity CLEAR (CLEAR) 03/11/16 16:00 Urine pH 5.5 03/11/16 16:00 Ur Specific [place] 1.015 (1.005-1.030) 03/11/16 16:00 Urine Protein 30 mg/dL (NEGATIVE) H 03/11/16 16:00 Urine Glucose (UA) NEGATIVE mg/dL (NEGATIVE) 03/11/16 16:00 Urine Ketones NEGATIVE mg/dL (NEGATIVE) 03/11/16 16:00 Urine Blood SMALL (NEGATIVE) H 03/11/16 16:00 Urine Nitrate NEGATIVE (NEGATIVE) 03/11/16 16:00 Urine Bilirubin NEGATIVE (NEGATIVE) 03/11/16 16:00 Urine Urobilinogen 0.2 E.U./dL (0.2 - 1.0) 03/11/16 16:00 Ur Leukocyte Esterase SMALL (NEGATIVE) H 03/11/16 16:00 Urine RBC 0-2 /hpf (0-5) H 03/11/16 16:00 Urine WBC 0-2 /hpf (0-5) 03/11/16 16:00 Ur Epithelial Cells RARE /lpf (FEW) 03/11/16 16:00 Urine Bacteria FEW /hpf (NONE SEEN) 03/11/16 16:00 Ur Random Sodium 31 mmol/L 03/13/16 10:10 Urine Creatinine 33.0 mg/dl (39.0-259.0) L 03/13/16 10:10 Stool Occult Blood POSITIVE (NEGATIVE) 03/13/16 10:10 Random Vancomycin 18.4 ug/mL (5.0-40.0) 03/13/16 07:23 Blood Type O POSITIVE 03/17/16 06:30 Antibody Screen NEGATIVE 03/17/16 06:30 Crossmatch See Detail 03/17/16 06:30 - Physical Exam Vitals and I&O: Vital Signs Temp 98.6 F 03/17/16 08:00 Pulse 81 03/17/16 08:00 Resp 16 03/17/16 08:00 BP 104/72 03/17/16 08:00 Pulse Ox 100 03/17/16 08:00 Intake & Output 03/16/16 03/17/16 03/17/16 18:59 06:59 18:59 Intake Total 3643 1000 1350 Output Total 1750 1150 Balance 1893 1000 200 Intake: Intake, IV Amount 2443 1000 Mag Sulfate 2gm/50mL 50 Premix 2 gm In 50 ml @ 25 mls/hr IV X1 ONE Rx#: [id number] Multivitamin Inj 10 ml In 1393 Amino Acids 8.5% 962 ml In Dextrose 70% 371 ml In Intralipids 20% 50 ml @ 100 mls/hr IV .[id number] [facility] Rx#:[id number] Sodium Chloride 0.9% 1, 1000 1000 000 ml @ 105 mls/hr IV . [id number] [facility] Rx#:[id number] Oral 1200 150 TPN/PPN 1200 Output: Urine 1150 1050 Stool 400 50 Other 200 50 Other: Stool Characteristics Soft Soft Brown Brown Green Green Active Medications: Current Medications Acetaminophen (Tylenol) 650 mg PO Q6H PRN PRN Reason: mild pain or temp >100.4 Stop: 05/10/16 18:36 Allopurinol (Zyloprim) 200 mg PO DAILY [facility] Stop: 05/12/16 09:14 Last Admin: 03/17/16 09:24 Dose: 200 mg Artificial Tears (Artificial Tears Ophth Soln) 1 drop EACH EYE Q6H [facility] Stop: 03/21/16 09:29 Last Admin: 03/17/16 04:00 Dose: 1 drop Hydromorphone HCl (Dilaudid) 2 mg IVP Q4H PRN PRN Reason: breakthrough pain Stop: 05/10/16 18:36 Last Admin: 03/17/16 05:39 Dose: 2 mg Multivitamins/Minerals 10 ml/Amino Acids/Electrolytes/Dextrose/ Fat Emulsion Intravenous 1,393 mls @ 100 mls/hr IV .[id number] [facility] Stop: 05/12/16 09:59 Last Admin: 03/16/16 21:15 Dose: 100 mls/hr Amikacin Sulfate 300 mg/ (Dextrose) 101.2 mls @ 100 mls/hr IV Q24HR [facility] Stop: 05/14/16 17:59 Last Admin: 03/16/16 17:17 Dose: 100 mls/hr Sodium Chloride (Nacl 0.9%) 1,000 mls @ 10 mls/hr IV .Q24H [facility] Stop: 05/16/16 08:09 Potassium Phosphate 20 mmole/ (Sodium Chloride) 256.6667 mls @ 42.5 mls/hr IV X1 ONE Stop: 03/17/16 19:58 Insulin Aspart (Novolog Insulin Sliding Scale) 0 units SUBQ ACHS [facility] PRN Reason: Protocol Stop: 05/12/16 16:29 Last Admin: 03/17/16 11:35 Dose: Not Given Lorazepam (Ativan) 0.5 mg PO Q6H PRN; Protocol PRN Reason: Anxiety Stop: 05/10/16 18:36 Last Admin: 03/13/16 02:41 Dose: 0.5 mg Megestrol Acetate (Megace) 400 mg PO BID [facility] PRN Reason: Protocol Stop: 05/16/16 08:59 Last Admin: 03/17/16 09:24 Dose: 400 mg Mirtazapine (Remeron) 30 mg PO HS [facility] PRN Reason: Protocol Stop: 05/16/16 20:59 Miscellaneous (Ppn Per Pharmacy) 1 ea MC Q24H [facility] Stop: 05/11/16 10:29 Miscellaneous (Amikacin Iv Per Pharmacy) 1 ea MC PRN PRN PRN Reason: PROTOCOL Stop: 05/14/16 15:57 Prochlorperazine Maleate (Compazine) 10 mg PO Q6H PRN; Protocol PRN Reason: nausea and vomiting Stop: 05/10/16 18:36 Sodium Bicarbonate (Sodium Bicarbonate) 650 mg PO BID [facility] PRN Reason: Protocol Stop: 05/12/16 16:59 Last Admin: 03/17/16 09:24 Dose: 650 mg Sodium Bicarbonate (Sodium Bicarb) 100 meq IVP X1 ONE Stop: 03/17/16 13:58 General: No acute distress HEENT: Atraumatic, Mucous membr. moist/pink Neck: Supple, +2 carotid pulse wo bruit Cardiovascular: Regular rate, Normal S1, Normal S2 Lungs: Clear to auscultation Abdomen: Bowel sounds, Soft, no Tender Extremities: no Edema Neurological: Normal speech Skin: no Rash Psych/Mental Status: Other (depressed) Assessment/Plan - Assessment Assessment: TURNER- improved ESBL E. coli septicemia met colon CA w/ partial colectomy & left colostomy bag acute on CD anemia ABD wall cellulitis w/ abscess EC fistula HYponatremia 2nd to Na loss due to Lasix svere malnutrition hypoglycemia nongap met acid 2nd to GI loss Hco3 - Plan Plan: kidney fnc has improved replace Mg, PO4, Ca agree w/ transfusion & CT of abd/pelvis f/u electrolytes, cbc adminisister NaHco3
[2016-03-17] MEDS ORDERED: Calcium Gluconate 1 GM in Sodium Chloride 0.9% 100 ML IV ONE (15:00)
[2016-03-18] MEDS: HYDROmorphone 2 mg/mL 1mL Vial IVP PRN ×4 (00:49→21:17)
[2016-03-18] MEDS: MULTIVITAMIN IV SCH (00:51)
[2016-03-18] MEDS: [UNRECOGNIZED DRUG - OTHER] IV SCH (00:51)
[2016-03-18] MEDS: AMINO ACIDS IV SCH (00:51)
[2016-03-18] MEDS: DEXTROSE IV SCH (00:51)
[2016-03-18] MEDS: INSULIN ASPART SLIDING SCALE 100 UNITS/ML UNIT SUBQ SCH ×5 (00:52→21:30)
[2016-03-18] MEDS: Polyvinyl Alcohol Ophth Soln 15 mL Bottle EACH EYE SCH ×4 (03:45→21:12)
[2016-03-18 05:38] LABS: HEMATOCRIT 26.8 % (39.0-49.0); HEMOGLOBIN 9.3 gm/dL (13.2-17.3); MEAN CELL VOLUME 84.5 fl (80-99); MEAN CORPUSCULAR HEMOGLOBIN 29.3 pg (26.0-30.0); MEAN CORPUSCULAR HGB CONC 34.7 pg (28.0-36.0); MEAN PLATELET VOLUME 9.4 fl; RED BLOOD COUNT 3.17 Mil/cmm (4.30-5.70); RED CELL DISTRIBUTION WIDTH 15.5 % (11.5-20.0)
[2016-03-18 05:42] LABS: WHITE BLOOD COUNT 6.3 Th/cmm (4.8-10.8)
[2016-03-18 07:14] LABS: ANION GAP 10.9 (7.0-16.0); BUN - UREA NITROGEN 21 mg/dL (7-25); CALCIUM SERUM 7.2 mg/dL (8.6-10.3); CARBON DIOXIDE 20.4 mEq/L (21.0-31.0); CHLORIDE 111 mEq/L (98-107); GLUCOSE 106 mg/dL (70-105); MAGNESIUM 2.1 mg/dL (1.9-2.7); PHOSPHOROUS 3.2 mg/dL (2.5-5.0); POTASSIUM SERUM 4.3 mEq/L (3.5-5.1); SODIUM SERUM 138 mEq/L (136-145)
[2016-03-18 07:57] LABS: BAND NEUTROPHILE 19 % (0-10); EOSINOPHIL 1 % (0-5); NEUTROPHILS 72 % (40-80); TOTAL CELLS COUNTED 100
[2016-03-18 07:58] LABS: ANISOCYTOSIS 1+; PLATELET ESTIMATE DECREASED PLATELETS (NORMAL); PLATELET MORPHOLOGY GIANT PLATELETS SEEN (NORMAL)
[2016-03-18 10:38] LABS: INR 1.35 (0.5-1.4); PROTHROMBIN TIME (TEST) 13.7 SECONDS (9.5-11.5)
[2016-03-18] MEDS: Meropenem 1 GM in Sodium Chloride 0.9% 100 ML IV SCH ×2 (11:33→18:31)
[2016-03-18 12:15] LABS: MICROALBUMIN RANDOM RUINE 41.4 ug/mL (Not Estab.)
--- NOTE | 2016-03-18 13:49 | General Progress Note ---
Subjective - Review of Systems Service Date: 03/18/16 Subjective: awake, comfortable, verbal Objective - Results Result Diagrams: 03/18/16 04:38 03/18/16 06:22 Recent Labs: Laboratory Last Values WBC 6.3 Th/cmm (4.8-10.8) D 03/18/16 04:38 RBC 3.17 Mil/cmm (4.30-5.70) L 03/18/16 04:38 Hgb 9.3 gm/dL (13.2-17.3) L 03/18/16 04:38 Hct 26.8 % (39.0-49.0) L D 03/18/16 04:38 MCV 84.5 fl (80-99) 03/18/16 04:38 MCH 29.3 pg (26.0-30.0) 03/18/16 04:38 MCHC Differential 34.7 pg (28.0-36.0) 03/18/16 04:38 RDW 15.5 % (11.5-20.0) 03/18/16 04:38 Plt Count Th/cmm (150-400) 03/17/16 06:30 MPV 9.4 fl 03/18/16 04:38 Neutrophils % 89.2 % (40.0-80.0) H 03/12/16 04:04 Band Neutrophils % 19 % (0-10) H 03/18/16 04:38 Lymphocytes % 5.2 % (20.0-50.0) L 03/12/16 04:04 Monocytes % 5.3 % (2.0-10.0) 03/12/16 04:04 Eosinophils % 0.2 % (0.0-5.0) 03/12/16 04:04 Basophils % 0.1 % (0.0-2.0) 03/12/16 04:04 Neutrophils (Manual) 72 % (40-80) 03/18/16 04:38 Lymphocytes 5 % (20-50) L 03/18/16 04:38 Monocytes 3 % (2-10) 03/18/16 04:38 Eosinophils 1 % (0-5) 03/18/16 04:38 Basophils 0 % (0-3) 03/13/16 07:23 Platelet Estimate DECREASED PLATELETS (NORMAL) 03/18/16 04:38 Platelet Morphology GIANT PLATELETS SEEN (NORMAL) 03/18/16 04:38 Anisocytosis 1+ 03/18/16 04:38 RBC Morph Micro Appear ABNORMAL (NORMAL) 03/18/16 04:38 Eos Smear Source URINE 03/13/16 10:10 Eos Smear Total Cells NONE SEEN (NONE SEEN) 03/13/16 10:10 Plt Count 56 Th/cmm (150-400) L* 03/18/16 06:38 PT 13.7 SECONDS (9.5-11.5) H 03/18/16 06:38 INR 1.35 (0.5-1.4) 03/18/16 06:38 PTT (Actin FS) 32.3 SECONDS (26.0-38.0) 03/18/16 06:38 Fibrinogen 225.0 mg/dL (200.0-400.0) 03/18/16 06:38 D-Dimer 4020 ng/mL (100-400) H 03/18/16 06:38 Sodium 138 mEq/L (136-145) 03/18/16 06:22 Potassium 4.3 mEq/L (3.5-5.1) 03/18/16 06:22 Chloride 111 mEq/L (98-107) H 03/18/16 06:22 Carbon Dioxide 20.4 mEq/L (21.0-31.0) L 03/18/16 06:22 Anion Gap 10.9 (7.0-16.0) 03/18/16 06:22 BUN 21 mg/dL (7-25) 03/18/16 06:22 Creatinine 1.0 mg/dL (0.7-1.3) 03/18/16 06:22 Est GFR ( Amer) > 60.0 ml/min 03/18/16 06:22 Est GFR (Non-Af Amer) > 60.0 ml/min 03/18/16 06:22 BUN/Creatinine Ratio 21.0 03/18/16 06:22 Glucose 106 mg/dL (70-105) H 03/18/16 06:22 POC Glucose 93 MG/DL (70 - 105) 03/18/16 05:53 Hemoglobin A1c % 4.9 % (4.0-6.0) 03/13/16 07:23 Whole Bld Lactic Acid 0.91 mmol/L (0.60-2.00) 03/11/16 16:00 Uric Acid 11.2 mg/dL (4.4-7.6) H 03/13/16 07:23 Calcium 7.2 mg/dL (8.6-10.3) L 03/18/16 06:22 Phosphorus 3.2 mg/dL (2.5-5.0) 03/18/16 06:22 Magnesium 2.1 mg/dL (1.9-2.7) 03/18/16 06:22 Ferritin 479 ng/mL (30-400) H 03/13/16 07:23 Total Bilirubin 0.4 mg/dL (0.3-1.0) 03/14/16 05:20 AST 26 U/L (13-39) 03/14/16 05:20 ALT 24 U/L (7-52) 03/14/16 05:20 Alkaline Phosphatase 74 U/L (34-104) 03/14/16 05:20 Total Protein 5.2 gm/dL (6.0-8.3) L 03/14/16 05:20 Albumin 1.7 gm/dL (4.2-5.5) L 03/14/16 05:20 Globulin 3.5 gm/dL 03/14/16 05:20 Albumin/Globulin Ratio 0.5 (1.0-1.8) L 03/14/16 05:20 Prealbumin <3 mg/dL (10-36) L 03/17/16 05:30 Triglycerides 51 mg/dL (<150) 03/17/16 05:30 Cholesterol 45 mg/dL (<200) 03/17/16 05:30 Lipase 7 U/L (11-82) L 03/12/16 04:04 Carcinoembryonic Ag 39.7 ng/mL (0.0-4.7) H 03/13/16 05:33 Urine Source [place] 03/11/16 16:00 Urine Color YELLOW 03/11/16 16:00 Urine Clarity CLEAR (CLEAR) 03/11/16 16:00 Urine pH 5.5 03/11/16 16:00 Ur Specific [place] 1.015 (1.005-1.030) 03/11/16 16:00 Urine Protein 30 mg/dL (NEGATIVE) H 03/11/16 16:00 Urine Glucose (UA) NEGATIVE mg/dL (NEGATIVE) 03/11/16 16:00 Urine Ketones NEGATIVE mg/dL (NEGATIVE) 03/11/16 16:00 Urine Blood SMALL (NEGATIVE) H 03/11/16 16:00 Urine Nitrate NEGATIVE (NEGATIVE) 03/11/16 16:00 Urine Bilirubin NEGATIVE (NEGATIVE) 03/11/16 16:00 Urine Urobilinogen 0.2 E.U./dL (0.2 - 1.0) 03/11/16 16:00 Ur Leukocyte Esterase SMALL (NEGATIVE) H 03/11/16 16:00 Urine RBC 0-2 /hpf (0-5) H 03/11/16 16:00 Urine WBC 0-2 /hpf (0-5) 03/11/16 16:00 Ur Epithelial Cells RARE /lpf (FEW) 03/11/16 16:00 Urine Bacteria FEW /hpf (NONE SEEN) 03/11/16 16:00 Ur Random Sodium 31 mmol/L 03/13/16 10:10 Urine Creatinine 25.5 mg/dl (Not Estab.) 03/13/16 10:10 Urine Microalbumin 41.4 ug/mL (Not Estab.) 03/13/16 10:10 Microalb/Creat Ratio 162.4 mg/g creat (0.0-30.0) H 03/13/16 10:10 Stool Occult Blood POSITIVE (NEGATIVE) 03/13/16 10:10 Random Vancomycin 18.4 ug/mL (5.0-40.0) 03/13/16 07:23 Blood Type O POSITIVE 03/17/16 16:10 Antibody Screen NEGATIVE 03/17/16 16:10 Crossmatch See Detail 03/17/16 16:10 - Physical Exam Vitals and I&O: Vital Signs Temp 97.5 F 03/18/16 12:24 Pulse 86 03/18/16 12:24 Resp 18 03/18/16 12:24 BP 108/66 03/18/16 12:24 Pulse Ox 100 03/18/16 12:24 Intake & Output 03/17/16 03/18/16 03/18/16 18:59 06:59 18:59 Intake Total 2743 1300 Output Total 2600 1090 Balance 143 210 Intake: Intake, IV Amount 1393 Multivitamin Inj 10 ml In 1393 Amino Acids 8.5% 962 ml In Dextrose 70% 371 ml In Intralipids 20% 50 ml @ 100 mls/hr IV .[id number] [facility] Rx#:[id number] Oral 150 100 TPN/PPN 1200 1200 Output: Urine 2500 850 Stool 50 200 Other 50 40 Other: # Voids 1 # Bowel Movements 1 Stool Characteristics Soft Soft Soft Brown Brown Brown Green Green Green Active Medications: Current Medications Acetaminophen (Tylenol) 650 mg PO Q6H PRN PRN Reason: mild pain or temp >100.4 Stop: 05/10/16 18:36 Allopurinol (Zyloprim) 200 mg PO DAILY [facility] Stop: 05/12/16 09:14 Last Admin: 03/18/16 08:09 Dose: 200 mg Artificial Tears (Artificial Tears Ophth Soln) 1 drop EACH EYE Q6H [facility] Stop: 03/21/16 09:29 Last Admin: 03/18/16 08:30 Dose: 1 drop Hydromorphone HCl (Dilaudid) 2 mg IVP Q4H PRN PRN Reason: breakthrough pain Stop: 05/10/16 18:36 Last Admin: 03/18/16 08:05 Dose: 2 mg Multivitamins/Minerals 10 ml/Amino Acids/Electrolytes/Dextrose/ Fat Emulsion Intravenous 1,393 mls @ 100 mls/hr IV .[id number] [facility] Stop: 05/12/16 09:59 Last Admin: 03/18/16 00:51 Dose: 100 mls/hr Sodium Chloride (Nacl 0.9%) 1,000 mls @ 10 mls/hr IV .Q24H [facility] Stop: 05/16/16 08:09 Last Admin: 03/17/16 16:41 Dose: 10 mls/hr Meropenem 1 gm/ Sodium (Chloride) 100 mls @ 100 mls/hr IV Q8H [facility] Stop: 05/17/16 08:59 Last Admin: 03/18/16 11:33 Dose: 100 mls/hr Insulin Aspart (Novolog Insulin Sliding Scale) 0 units SUBQ ACHS [facility] PRN Reason: Protocol Stop: 05/12/16 16:29 Last Admin: 03/18/16 11:31 Dose: Not Given Lorazepam (Ativan) 0.5 mg PO Q6H PRN; Protocol PRN Reason: Anxiety Stop: 05/10/16 18:36 Last Admin: 03/13/16 02:41 Dose: 0.5 mg Megestrol Acetate (Megace) 400 mg PO BID [facility] PRN Reason: Protocol Stop: 05/16/16 08:59 Last Admin: 03/18/16 08:10 Dose: 400 mg Mirtazapine (Remeron) 30 mg PO HS [facility] PRN Reason: Protocol Stop: 05/16/16 20:59 Last Admin: 03/17/16 22:30 Dose: 30 mg Miscellaneous (Ppn Per Pharmacy) 1 ea MC Q24H [facility] Stop: 05/11/16 10:29 Prochlorperazine Maleate (Compazine) 10 mg PO Q6H PRN; Protocol PRN Reason: nausea and vomiting Stop: 05/10/16 18:36 Sodium Bicarbonate (Sodium Bicarbonate) 650 mg PO BID [facility] PRN Reason: Protocol Stop: 05/12/16 16:59 Last Admin: 03/18/16 08:09 Dose: 650 mg General: Alert, No acute distress HEENT: Atraumatic, Mucous membr. moist/pink Neck: Supple, +2 carotid pulse wo bruit Cardiovascular: Regular rate, Normal S1, Normal S2 Lungs: Other (decrease BS) Abdomen: Bowel sounds Extremities: no Edema Neurological: Normal tone, Sensation intact Skin: no Rash Assessment/Plan - Assessment Assessment: TURNER- improved ESBL E. coli septicemia met colon CA w/ partial colectomy & left colostomy bag acute on CD anemia ABD wall cellulitis w/ abscess EC fistula HYponatremia 2nd to Na loss due to Lasix svere malnutrition hypoglycemia nongap met acid 2nd to GI loss Hco3 - Plan Plan: kidney fnc has improved Mg, PO4, Ca has improved agree w/ transfusion & CT of abd/pelvis f/u electrolytes, cbc adminisister NaHco3
--- NOTE | 2016-03-18 14:11 | Infectious Disease Prog Note ---
Infectious Disease Subjective - Review of Systems Service Date: 03/18/16 Subjective: [id number] Infectious Disease Objective - Results Result Diagrams: 03/18/16 04:38 03/18/16 06:22 Recent Labs: Laboratory Last Values WBC 6.3 Th/cmm (4.8-10.8) D 03/18/16 04:38 RBC 3.17 Mil/cmm (4.30-5.70) L 03/18/16 04:38 Hgb 9.3 gm/dL (13.2-17.3) L 03/18/16 04:38 Hct 26.8 % (39.0-49.0) L D 03/18/16 04:38 MCV 84.5 fl (80-99) 03/18/16 04:38 MCH 29.3 pg (26.0-30.0) 03/18/16 04:38 MCHC Differential 34.7 pg (28.0-36.0) 03/18/16 04:38 RDW 15.5 % (11.5-20.0) 03/18/16 04:38 Plt Count Th/cmm (150-400) 03/17/16 06:30 MPV 9.4 fl 03/18/16 04:38 Neutrophils % 89.2 % (40.0-80.0) H 03/12/16 04:04 Band Neutrophils % 19 % (0-10) H 03/18/16 04:38 Lymphocytes % 5.2 % (20.0-50.0) L 03/12/16 04:04 Monocytes % 5.3 % (2.0-10.0) 03/12/16 04:04 Eosinophils % 0.2 % (0.0-5.0) 03/12/16 04:04 Basophils % 0.1 % (0.0-2.0) 03/12/16 04:04 Neutrophils (Manual) 72 % (40-80) 03/18/16 04:38 Lymphocytes 5 % (20-50) L 03/18/16 04:38 Monocytes 3 % (2-10) 03/18/16 04:38 Eosinophils 1 % (0-5) 03/18/16 04:38 Basophils 0 % (0-3) 03/13/16 07:23 Platelet Estimate DECREASED PLATELETS (NORMAL) 03/18/16 04:38 Platelet Morphology GIANT PLATELETS SEEN (NORMAL) 03/18/16 04:38 Anisocytosis 1+ 03/18/16 04:38 RBC Morph Micro Appear ABNORMAL (NORMAL) 03/18/16 04:38 Eos Smear Source URINE 03/13/16 10:10 Eos Smear Total Cells NONE SEEN (NONE SEEN) 03/13/16 10:10 Plt Count 56 Th/cmm (150-400) L* 03/18/16 06:38 PT 13.7 SECONDS (9.5-11.5) H 03/18/16 06:38 INR 1.35 (0.5-1.4) 03/18/16 06:38 PTT (Actin FS) 32.3 SECONDS (26.0-38.0) 03/18/16 06:38 Fibrinogen 225.0 mg/dL (200.0-400.0) 03/18/16 06:38 D-Dimer 4020 ng/mL (100-400) H 03/18/16 06:38 Sodium 138 mEq/L (136-145) 03/18/16 06:22 Potassium 4.3 mEq/L (3.5-5.1) 03/18/16 06:22 Chloride 111 mEq/L (98-107) H 03/18/16 06:22 Carbon Dioxide 20.4 mEq/L (21.0-31.0) L 03/18/16 06:22 Anion Gap 10.9 (7.0-16.0) 03/18/16 06:22 BUN 21 mg/dL (7-25) 03/18/16 06:22 Creatinine 1.0 mg/dL (0.7-1.3) 03/18/16 06:22 Est GFR ( Amer) > 60.0 ml/min 03/18/16 06:22 Est GFR (Non-Af Amer) > 60.0 ml/min 03/18/16 06:22 BUN/Creatinine Ratio 21.0 03/18/16 06:22 Glucose 106 mg/dL (70-105) H 03/18/16 06:22 POC Glucose 93 MG/DL (70 - 105) 03/18/16 05:53 Hemoglobin A1c % 4.9 % (4.0-6.0) 03/13/16 07:23 Whole Bld Lactic Acid 0.91 mmol/L (0.60-2.00) 03/11/16 16:00 Uric Acid 11.2 mg/dL (4.4-7.6) H 03/13/16 07:23 Calcium 7.2 mg/dL (8.6-10.3) L 03/18/16 06:22 Phosphorus 3.2 mg/dL (2.5-5.0) 03/18/16 06:22 Magnesium 2.1 mg/dL (1.9-2.7) 03/18/16 06:22 Ferritin 479 ng/mL (30-400) H 03/13/16 07:23 Total Bilirubin 0.4 mg/dL (0.3-1.0) 03/14/16 05:20 AST 26 U/L (13-39) 03/14/16 05:20 ALT 24 U/L (7-52) 03/14/16 05:20 Alkaline Phosphatase 74 U/L (34-104) 03/14/16 05:20 Total Protein 5.2 gm/dL (6.0-8.3) L 03/14/16 05:20 Albumin 1.7 gm/dL (4.2-5.5) L 03/14/16 05:20 Globulin 3.5 gm/dL 03/14/16 05:20 Albumin/Globulin Ratio 0.5 (1.0-1.8) L 03/14/16 05:20 Prealbumin <3 mg/dL (10-36) L 03/17/16 05:30 Triglycerides 51 mg/dL (<150) 03/17/16 05:30 Cholesterol 45 mg/dL (<200) 03/17/16 05:30 Lipase 7 U/L (11-82) L 03/12/16 04:04 Carcinoembryonic Ag 39.7 ng/mL (0.0-4.7) H 03/13/16 05:33 Urine Source [place] 03/11/16 16:00 Urine Color YELLOW 03/11/16 16:00 Urine Clarity CLEAR (CLEAR) 03/11/16 16:00 Urine pH 5.5 03/11/16 16:00 Ur Specific [place] 1.015 (1.005-1.030) 03/11/16 16:00 Urine Protein 30 mg/dL (NEGATIVE) H 03/11/16 16:00 Urine Glucose (UA) NEGATIVE mg/dL (NEGATIVE) 03/11/16 16:00 Urine Ketones NEGATIVE mg/dL (NEGATIVE) 03/11/16 16:00 Urine Blood SMALL (NEGATIVE) H 03/11/16 16:00 Urine Nitrate NEGATIVE (NEGATIVE) 03/11/16 16:00 Urine Bilirubin NEGATIVE (NEGATIVE) 03/11/16 16:00 Urine Urobilinogen 0.2 E.U./dL (0.2 - 1.0) 03/11/16 16:00 Ur Leukocyte Esterase SMALL (NEGATIVE) H 03/11/16 16:00 Urine RBC 0-2 /hpf (0-5) H 03/11/16 16:00 Urine WBC 0-2 /hpf (0-5) 03/11/16 16:00 Ur Epithelial Cells RARE /lpf (FEW) 03/11/16 16:00 Urine Bacteria FEW /hpf (NONE SEEN) 03/11/16 16:00 Ur Random Sodium 31 mmol/L 03/13/16 10:10 Urine Creatinine 25.5 mg/dl (Not Estab.) 03/13/16 10:10 Urine Microalbumin 41.4 ug/mL (Not Estab.) 03/13/16 10:10 Microalb/Creat Ratio 162.4 mg/g creat (0.0-30.0) H 03/13/16 10:10 Stool Occult Blood POSITIVE (NEGATIVE) 03/13/16 10:10 Random Vancomycin 18.4 ug/mL (5.0-40.0) 03/13/16 07:23 Blood Type O POSITIVE 03/17/16 16:10 Antibody Screen NEGATIVE 03/17/16 16:10 Crossmatch See Detail 03/17/16 16:10 - Physical Exam Vitals and I&O: Vital Signs Temp 97.5 F 03/18/16 12:24 Pulse 86 03/18/16 12:24 Resp 18 03/18/16 12:24 BP 108/66 03/18/16 12:24 Pulse Ox 100 03/18/16 12:24 Intake & Output 03/17/16 03/18/16 03/18/16 18:59 06:59 18:59 Intake Total 2743 1300 Output Total 2600 1090 Balance 143 210 Intake: Intake, IV Amount 1393 Multivitamin Inj 10 ml In 1393 Amino Acids 8.5% 962 ml In Dextrose 70% 371 ml In Intralipids 20% 50 ml @ 100 mls/hr IV .[id number] COUNT INCLUDES THE [facility] Rx#:[id number] Oral 150 100 TPN/PPN 1200 1200 Output: Urine 2500 850 Stool 50 200 Other 50 40 Other: # Voids 1 # Bowel Movements 1 Stool Characteristics Soft Soft Soft Brown Brown Brown Green Green Green Active Medications: Current Medications Acetaminophen (Tylenol) 650 mg PO Q6H PRN PRN Reason: mild pain or temp >100.4 Stop: 05/10/16 18:36 Allopurinol (Zyloprim) 200 mg PO DAILY COUNT INCLUDES THE [facility] Stop: 05/12/16 09:14 Last Admin: 03/18/16 08:09 Dose: 200 mg Artificial Tears (Artificial Tears Ophth Soln) 1 drop EACH EYE Q6H COUNT INCLUDES THE [facility] Stop: 03/21/16 09:29 Last Admin: 03/18/16 08:30 Dose: 1 drop Hydromorphone HCl (Dilaudid) 2 mg IVP Q4H PRN PRN Reason: breakthrough pain Stop: 05/10/16 18:36 Last Admin: 03/18/16 08:05 Dose: 2 mg Multivitamins/Minerals 10 ml/Amino Acids/Electrolytes/Dextrose/ Fat Emulsion Intravenous 1,393 mls @ 100 mls/hr IV .[id number] COUNT INCLUDES THE [facility] Stop: 05/12/16 09:59 Last Admin: 03/18/16 00:51 Dose: 100 mls/hr Sodium Chloride (Nacl 0.9%) 1,000 mls @ 10 mls/hr IV .Q24H COUNT INCLUDES THE [facility] Stop: 05/16/16 08:09 Last Admin: 03/17/16 16:41 Dose: 10 mls/hr Meropenem 1 gm/ Sodium (Chloride) 100 mls @ 100 mls/hr IV Q8H COUNT INCLUDES THE [facility] Stop: 05/17/16 08:59 Last Admin: 03/18/16 11:33 Dose: 100 mls/hr Insulin Aspart (Novolog Insulin Sliding Scale) 0 units SUBQ ACHS [facility] PRN Reason: Protocol Stop: 05/12/16 16:29 Last Admin: 03/18/16 11:31 Dose: Not Given Lorazepam (Ativan) 0.5 mg PO Q6H PRN; Protocol PRN Reason: Anxiety Stop: 05/10/16 18:36 Last Admin: 03/13/16 02:41 Dose: 0.5 mg Megestrol Acetate (Megace) 400 mg PO BID [facility] PRN Reason: Protocol Stop: 05/16/16 08:59 Last Admin: 03/18/16 08:10 Dose: 400 mg Mirtazapine (Remeron) 30 mg PO HS [facility] PRN Reason: Protocol Stop: 05/16/16 20:59 Last Admin: 03/17/16 22:30 Dose: 30 mg Miscellaneous (Ppn Per Pharmacy) 1 ea MC Q24H [facility] Stop: 05/11/16 10:29 Prochlorperazine Maleate (Compazine) 10 mg PO Q6H PRN; Protocol PRN Reason: nausea and vomiting Stop: 05/10/16 18:36 Sodium Bicarbonate (Sodium Bicarbonate) 650 mg PO BID COUNT INCLUDES THE [facility] PRN Reason: Protocol Stop: 05/12/16 16:59 Last Admin: 03/18/16 08:09 Dose: 650 mg
[2016-03-18] MEDS ORDERED: Diatrizoate Meglumine/Diatri 30 mL Sol PO ONE (15:34)
[2016-03-19] MEDS: Meropenem 1 GM in Sodium Chloride 0.9% 100 ML IV SCH ×3 (00:43→17:22)
[2016-03-19] MEDS: MULTIVITAMIN IV SCH (00:44)
[2016-03-19] MEDS: DEXTROSE IV SCH (00:44)
[2016-03-19] MEDS: AMINO ACIDS IV SCH (00:44)
[2016-03-19] MEDS: [UNRECOGNIZED DRUG - OTHER] IV SCH (00:44)
[2016-03-19] MEDS: HYDROmorphone 2 mg/mL 1mL Vial IVP PRN ×5 (01:13→21:57)
[2016-03-19] MEDS: Polyvinyl Alcohol Ophth Soln 15 mL Bottle EACH EYE SCH ×5 (05:10→22:10)
--- NOTE | 2016-03-19 06:35 | Consultation ---
REFERRING PHYSICIAN: Dr. Wynn REASON FOR CONSULTATION: UTI with urine culture growing ESBL E. coli. HISTORY OF PRESENT ILLNESS: The patient is a 55-year-old male with past medical history of colon carcinoma, status post partial colectomy with metastasis, obstructive uropathy with bilateral nephrostomies, cachexia, admitted on 03/11/2016 for abdominal pain, redness, and swelling. As per record, he saw redness, swelling, and drainage from the colostomy site. On initial evaluation, the patient's temperature was 97.4 degree Fahrenheit and WBC count was 9400. The patient also has urostomy. On initial evaluation, sepsis workup was performed, and urinalysis showed wbc 0-2, rbc 0-2, and small leukocyte esterase. Urine culture grew ESBL E. coli. So far, the patient has no fever, no chills. ALLERGIES: NKDA. MEDICATIONS: As per medication reconciliation sheet. Antibiotic lehman, the patient has received amikacin and vancomycin. Currently, the patient is receiving meropenem. FAMILY HISTORY: Noncontributory. SOCIAL HISTORY: The patient lives at care facility. He has no history of smoking, alcohol, or drug use. REVIEW OF SYSTEMS: Constitutional: The patient has no fever, no chills. The patient has generalized weakness and significant weight loss. HEENT: No diplopia, no photophobia, and no sore throat. RESPIRATORY: No cough. No shortness of breath. CVS: No chest pain. No palpitation. GI: No nauseas, no vomiting, no diarrhea, and no constipation. As noted, the patient had colostomy on epigastric area and has colostomy bag draining stool. The patient also has urostomy at the left lower quadrant, draining cloudy urine. On the back, the patient bilateral nephrostomy tubes. GENITOURINARY: As mentioned above. NEUROLOGIC: No headache. No dizziness. No focal weakness. PHYSICAL EXAMINATION: VITAL SIGNS: Current vital signs show temperature is 97.5, pulse 86, respiration 18, blood pressure 108/66, oxygen saturation 100% on 3 liter nasal cannula. GENERAL: The patient is very cachectic with weight of 59 kg. HEENT: Head is normocephalic and atraumatic. Bitemporal wasting. Sunken eyes. Oral cavity moist, pink tongue. Eyes: Pallor is present. No icterus. NECK: Supple. No JVD. No carotid bruit. Trachea in midline. CHEST: Bilateral breath sounds. No crackles. No wheezing. Decreased breath sounds. HEART: S1 and S2 within normal limits. Regular rhythm. No murmurs and no gallops. ABDOMEN: Soft. Tenderness. In epigastric area, the patient has colostomy bag. On the left lower quadrant, the patient has urostomy. Bilaterally in the back, the patient nephrostomy tubes draining high yellow urine. EXTREMITIES: No cyanosis, no clubbing, and no edema. NEUROLOGIC: Alert, awake, and oriented x3. LABORATORY DATA: Current lab shows WBC count is 6300, hemoglobin 9.3, hematocrit 26.8, and platelets are 56,000. Sodium is 138, potassium 4.3, chloride 111, bicarb is 20.4, BUN is 21, creatinine 1, and glucose is 106. D-dimer is . Urinalysis showed small blood, small leukocyte esterase, wbc 0-2, few bacteria. Stool for occult blood is positive. Vancomycin 18.4 on 03/13/2016. Blood cultures two sets are negative. Urine culture grew more than 100,[address] scan of the abdomen and pelvis has revealed bilateral pleural effusion, new 3.1 cm round density within the right lobe of liver. Etiology indeterminate. Abscess formation cannot excluded. Mild diffuse ascites throughout the abdomen and pelvis. Bilateral large poorly defined complex pelvic mass, etiology uncertain. Defect within anterior abdominal wall with herniation of bowel ____ tissue. No change in bilateral nephrostomy catheters without hydronephrosis. Chest x-ray on 03/14/2016 showed new left pleural catheter with a tape in the region of superior vena cava in junction with the right atrium. No focal pulmonary pulses. IMPRESSION: 1. Extended-spectrum beta-lactamase Escherichia coli. We have mild urinary tract infection versus colonization to his liver mass, likely metastatic colon cancer, rule out abscess. 2. Colon cancer ____ with metastasis. 3. Possible colectomy with colostomy. 4. Urostomy. 6. Bilateral nephrostomy. 7. Severe cachexia. Severe protein calorie malnutrition likely secondary to malignancy. 8. Azotemia. 9. Suspicion of large abdominal abscess with formation of enterocutaneous fistula versus urostomy, not clear at this time. 10. Suspect liver abscess with metastatic lesion. 11. Thrombocytopenia and anemia. RECOMMENDATION: The patient is very malnourished and his condition seems to be terminal. Role of antibiotic may prolong the life if possible. Overall, the patient has very poor prognosis. Meanwhile, may consider hospice care or palliative care. While the patient is getting full treatment, we will continue meropenem till abscess is ruled out. If abscess is ruled out from the liver versus abdomen, I may change meropenem to Bactrim DS one tab twice a day. Thank you Dr. Wynn for involving me taking care of this patient. JOB# [id number]
[2016-03-19 07:20] LABS: HEMATOCRIT 25.5 % (39.0-49.0); HEMOGLOBIN 8.6 gm/dL (13.2-17.3); MEAN CELL VOLUME 84.8 fl (80-99); MEAN CORPUSCULAR HEMOGLOBIN 28.7 pg (26.0-30.0); MEAN CORPUSCULAR HGB CONC 33.9 pg (28.0-36.0); MEAN PLATELET VOLUME 8.9 fl; RED BLOOD COUNT 3.01 Mil/cmm (4.30-5.70); WHITE BLOOD COUNT 6.2 Th/cmm (4.8-10.8)
[2016-03-19 07:31] LABS: ANION GAP 9.2 (7.0-16.0); BUN - UREA NITROGEN 21 mg/dL (7-25); CARBON DIOXIDE 20.9 mEq/L (21.0-31.0); CHLORIDE 112 mEq/L (98-107); GLUCOSE 104 mg/dL (70-105); POTASSIUM SERUM 4.1 mEq/L (3.5-5.1); SODIUM SERUM 138 mEq/L (136-145)
[2016-03-19 07:32] LABS: CALCIUM SERUM 7.3 mg/dL (8.6-10.3)
[2016-03-19 07:33] LABS: PLATELET COUNT 72 Th/cmm (150-400)
[2016-03-19] MEDS: INSULIN ASPART SLIDING SCALE 100 UNITS/ML UNIT SUBQ SCH ×4 (07:53→22:00)
[2016-03-19 08:18] LABS: ANISOCYTOSIS 1+; BAND NEUTROPHILE 12 % (0-10); EOSINOPHIL 1 % (0-5); NEUTROPHILS 79 % (40-80); PLATELET ESTIMATE DECREASED PLATELETS (NORMAL); PLATELET MORPHOLOGY NORMAL (NORMAL); TOTAL CELLS COUNTED 100
--- NOTE | 2016-03-19 11:27 | Diagnostic Imaging Report ---
Small bowel follow-through HISTORY: Enterocutaneous fistula Water-soluble contrast was administered orally. Contrast passed freely from the stomach into the small bowel. There is a normal small bowel caliber and mucosal fold pattern. Accumulation of contrast noted over the right abdomen consistent with patient's history of a ostomy bag. Incidentally noted are bilateral nephrostomy catheters. IMPRESSION: 1. No evidence of small bowel obstruction. 2. No contrast extravasation 3. Focal accumulation of contrast over the right abdomen consistent with patient's history of an ostomy bag.
--- NOTE | 2016-03-19 13:35 | General Progress Note ---
Subjective - Review of Systems Service Date: 03/19/16 Subjective: more alert, comfortable, verbal, eating lunch Objective - Results Result Diagrams: 03/19/16 06:20 03/19/16 06:20 Recent Labs: Laboratory Last Values WBC 6.2 Th/cmm (4.8-10.8) 03/19/16 06:20 RBC 3.01 Mil/cmm (4.30-5.70) L 03/19/16 06:20 Hgb 8.6 gm/dL (13.2-17.3) L 03/19/16 06:20 Hct 25.5 % (39.0-49.0) L 03/19/16 06:20 MCV 84.8 fl (80-99) 03/19/16 06:20 MCH 28.7 pg (26.0-30.0) 03/19/16 06:20 MCHC Differential 33.9 pg (28.0-36.0) 03/19/16 06:20 RDW 16.0 % (11.5-20.0) 03/19/16 06:20 Plt Count 72 Th/cmm (150-400) L D 03/19/16 06:20 MPV 8.9 fl 03/19/16 06:20 Neutrophils % 89.2 % (40.0-80.0) H 03/12/16 04:04 Band Neutrophils % 12 % (0-10) H 03/19/16 06:20 Lymphocytes % 5.2 % (20.0-50.0) L 03/12/16 04:04 Monocytes % 5.3 % (2.0-10.0) 03/12/16 04:04 Eosinophils % 0.2 % (0.0-5.0) 03/12/16 04:04 Basophils % 0.1 % (0.0-2.0) 03/12/16 04:04 Neutrophils (Manual) 79 % (40-80) 03/19/16 06:20 Lymphocytes 4 % (20-50) L 03/19/16 06:20 Monocytes 4 % (2-10) 03/19/16 06:20 Eosinophils 1 % (0-5) 03/19/16 06:20 Basophils 0 % (0-3) 03/13/16 07:23 Platelet Estimate DECREASED PLATELETS (NORMAL) 03/19/16 06:20 Platelet Morphology NORMAL (NORMAL) 03/19/16 06:20 Anisocytosis 1+ 03/19/16 06:20 RBC Morph Micro Appear ABNORMAL (NORMAL) 03/19/16 06:20 Eos Smear Source URINE 03/13/16 10:10 Eos Smear Total Cells NONE SEEN (NONE SEEN) 03/13/16 10:10 Plt Count 56 Th/cmm (150-400) L* 03/18/16 06:38 PT 13.7 SECONDS (9.5-11.5) H 03/18/16 06:38 INR 1.35 (0.5-1.4) 03/18/16 06:38 PTT (Actin FS) 32.3 SECONDS (26.0-38.0) 03/18/16 06:38 Fibrinogen 225.0 mg/dL (200.0-400.0) 03/18/16 06:38 D-Dimer 4020 ng/mL (100-400) H 03/18/16 06:38 Sodium 138 mEq/L (136-145) 03/19/16 06:20 Potassium 4.1 mEq/L (3.5-5.1) 03/19/16 06:20 Chloride 112 mEq/L (98-107) H 03/19/16 06:20 Carbon Dioxide 20.9 mEq/L (21.0-31.0) L 03/19/16 06:20 Anion Gap 9.2 (7.0-16.0) 03/19/16 06:20 BUN 21 mg/dL (7-25) 03/19/16 06:20 Creatinine 1.0 mg/dL (0.7-1.3) 03/19/16 06:20 Est GFR ( Amer) > 60.0 ml/min 03/19/16 06:20 Est GFR (Non-Af Amer) > 60.0 ml/min 03/19/16 06:20 BUN/Creatinine Ratio 21.0 03/19/16 06:20 Glucose 104 mg/dL (70-105) 03/19/16 06:20 POC Glucose 99 MG/DL (70 - 105) 03/19/16 06:19 Hemoglobin A1c % 4.9 % (4.0-6.0) 03/13/16 07:23 Whole Bld Lactic Acid 0.91 mmol/L (0.60-2.00) 03/11/16 16:00 Uric Acid 11.2 mg/dL (4.4-7.6) H 03/13/16 07:23 Calcium 7.3 mg/dL (8.6-10.3) L 03/19/16 06:20 Phosphorus 3.2 mg/dL (2.5-5.0) 03/18/16 06:22 Magnesium 1.9 mg/dL (1.9-2.7) 03/19/16 06:20 Ferritin 479 ng/mL (30-400) H 03/13/16 07:23 Total Bilirubin 0.4 mg/dL (0.3-1.0) 03/14/16 05:20 AST 26 U/L (13-39) 03/14/16 05:20 ALT 24 U/L (7-52) 03/14/16 05:20 Alkaline Phosphatase 74 U/L (34-104) 03/14/16 05:20 Total Protein 5.2 gm/dL (6.0-8.3) L 03/14/16 05:20 Albumin 1.7 gm/dL (4.2-5.5) L 03/14/16 05:20 Globulin 3.5 gm/dL 03/14/16 05:20 Albumin/Globulin Ratio 0.5 (1.0-1.8) L 03/14/16 05:20 Prealbumin <3 mg/dL (10-36) L 03/17/16 05:30 Triglycerides 51 mg/dL (<150) 03/17/16 05:30 Cholesterol 45 mg/dL (<200) 03/17/16 05:30 Lipase 7 U/L (11-82) L 03/12/16 04:04 Carcinoembryonic Ag 39.7 ng/mL (0.0-4.7) H 03/13/16 05:33 Urine Source [place] 03/11/16 16:00 Urine Color YELLOW 03/11/16 16:00 Urine Clarity CLEAR (CLEAR) 03/11/16 16:00 Urine pH 5.5 03/11/16 16:00 Ur Specific [place] 1.015 (1.005-1.030) 03/11/16 16:00 Urine Protein 30 mg/dL (NEGATIVE) H 03/11/16 16:00 Urine Glucose (UA) NEGATIVE mg/dL (NEGATIVE) 03/11/16 16:00 Urine Ketones NEGATIVE mg/dL (NEGATIVE) 03/11/16 16:00 Urine Blood SMALL (NEGATIVE) H 03/11/16 16:00 Urine Nitrate NEGATIVE (NEGATIVE) 03/11/16 16:00 Urine Bilirubin NEGATIVE (NEGATIVE) 03/11/16 16:00 Urine Urobilinogen 0.2 E.U./dL (0.2 - 1.0) 03/11/16 16:00 Ur Leukocyte Esterase SMALL (NEGATIVE) H 03/11/16 16:00 Urine RBC 0-2 /hpf (0-5) H 03/11/16 16:00 Urine WBC 0-2 /hpf (0-5) 03/11/16 16:00 Ur Epithelial Cells RARE /lpf (FEW) 03/11/16 16:00 Urine Bacteria FEW /hpf (NONE SEEN) 03/11/16 16:00 Ur Random Sodium 31 mmol/L 03/13/16 10:10 Urine Creatinine 25.5 mg/dl (Not Estab.) 03/13/16 10:10 Urine Microalbumin 41.4 ug/mL (Not Estab.) 03/13/16 10:10 Microalb/Creat Ratio 162.4 mg/g creat (0.0-30.0) H 03/13/16 10:10 Stool Occult Blood POSITIVE (NEGATIVE) 03/13/16 10:10 Amikacin Peak 14.3 ug/mL (20.0-30.0) L 03/17/16 19:15 Amikacin Trough 4.6 ug/mL (1.0-8.0) 03/17/16 17:30 Random Vancomycin 18.4 ug/mL (5.0-40.0) 03/13/16 07:23 Blood Type O POSITIVE 03/17/16 16:10 Antibody Screen NEGATIVE 03/17/16 16:10 Crossmatch See Detail 03/17/16 16:10 - Physical Exam Vitals and I&O: Vital Signs Temp 98.6 F 03/19/16 08:26 Pulse 88 03/19/16 08:26 Resp 18 03/19/16 08:26 BP 129/78 03/19/16 08:26 Pulse Ox 100 03/19/16 08:26 Intake & Output 03/18/16 03/19/16 03/19/16 18:59 06:59 18:59 Intake Total 1493 1460 100 Output Total 1200 Balance 1493 260 100 Intake: Intake, IV Amount 1493 200 100 Meropenem 1 gm In Sodium 100 200 100 Chloride 0.9% 100 ml @ 100 mls/hr IV Q8H [facility] Rx# :[id number] Multivitamin Inj 10 ml In 1393 Amino Acids 8.5% 962 ml In Dextrose 70% 371 ml In Intralipids 20% 50 ml @ 90 mls/hr IV .[id number] [facility] Rx#:[id number] Oral 60 TPN/PPN 1200 Output: Urine 1200 Other: Stool Characteristics Soft Liquid Liquid Brown Brown Brown Green Active Medications: Current Medications Acetaminophen (Tylenol) 650 mg PO Q6H PRN PRN Reason: mild pain or temp >100.4 Stop: 05/10/16 18:36 Allopurinol (Zyloprim) 200 mg PO DAILY [facility] Stop: 05/12/16 09:14 Last Admin: 03/19/16 09:40 Dose: 200 mg Artificial Tears (Artificial Tears Ophth Soln) 1 drop EACH EYE Q6H [facility] Stop: 03/21/16 09:29 Last Admin: 03/19/16 10:47 Dose: 1 drop Hydromorphone HCl (Dilaudid) 2 mg IVP Q4HR PRN PRN Reason: severe pain Stop: 05/18/16 12:23 Last Admin: 03/19/16 12:50 Dose: 2 mg Multivitamins/Minerals 10 ml/Amino Acids/Electrolytes/Dextrose/ Fat Emulsion Intravenous 1,393 mls @ 90 mls/hr IV .[id number] [facility] Stop: 05/12/16 09:59 Last Admin: 03/19/16 00:44 Dose: 100 mls/hr Sodium Chloride (Nacl 0.9%) 1,000 mls @ 10 mls/hr IV .Q24H [facility] Stop: 05/16/16 08:09 Last Admin: 03/17/16 16:41 Dose: 10 mls/hr Meropenem 1 gm/ Sodium (Chloride) 100 mls @ 100 mls/hr IV Q8H [facility] Stop: 05/17/16 08:59 Last Infusion: 03/19/16 13:11 Dose: Infused Insulin Aspart (Novolog Insulin Sliding Scale) 0 units SUBQ ACHS [facility] PRN Reason: Protocol Stop: 05/12/16 16:29 Last Admin: 03/19/16 13:11 Dose: Not Given Lorazepam (Ativan) 0.5 mg IVP Q4HR PRN; Protocol PRN Reason: anxiety/insomnia Stop: 05/18/16 12:24 Megestrol Acetate (Megace) 400 mg PO BID [facility] PRN Reason: Protocol Stop: 05/16/16 08:59 Last Admin: 03/19/16 09:40 Dose: 400 mg Mirtazapine (Remeron) 30 mg PO HS [facility] PRN Reason: Protocol Stop: 05/16/16 20:59 Last Admin: 03/18/16 21:12 Dose: 30 mg Miscellaneous (Ppn Per Pharmacy) 1 ea MC Q24H [facility] Stop: 05/11/16 10:29 Prochlorperazine Maleate (Compazine) 10 mg PO Q6H PRN; Protocol PRN Reason: nausea and vomiting Stop: 05/10/16 18:36 Sodium Bicarbonate (Sodium Bicarbonate) 650 mg PO BID [facility] PRN Reason: Protocol Stop: 05/12/16 16:59 Last Admin: 03/19/16 09:40 Dose: 650 mg General: Alert, Cooperative, No acute distress HEENT: Atraumatic, EOMI, Mucous membr. moist/pink Neck: Supple, +2 carotid pulse wo bruit Cardiovascular: Regular rate, Normal S1, Normal S2 Lungs: Clear to auscultation Abdomen: Bowel sounds, Soft, Other (dressing intact), no Tender Extremities: no Edema Neurological: Normal speech, Normal tone Skin: no Rash Assessment/Plan - Assessment Assessment: TURNER- improved ESBL E. 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 - Plan Plan: kidney fnc has improved Mg, PO4, Ca has improved agree w/ transfusion & CT of abd/pelvis f/u electrolytes, cbc adminisister NaHco3 monitor plts closely
[2016-03-20] MEDS: Meropenem 1 GM in Sodium Chloride 0.9% 100 ML IV SCH ×3 (00:19→18:05)
[2016-03-20] MEDS: HYDROmorphone 2 mg/mL 1mL Vial IVP PRN ×4 (01:10→18:59)
[2016-03-20] MEDS: MULTIVITAMIN IV SCH ×2 (01:11→18:21)
[2016-03-20] MEDS: [UNRECOGNIZED DRUG - OTHER] IV SCH (01:11)
[2016-03-20] MEDS: AMINO ACIDS IV SCH ×2 (01:11→18:21)
[2016-03-20] MEDS: DEXTROSE IV SCH ×2 (01:11→18:21)
[2016-03-20] MEDS: Polyvinyl Alcohol Ophth Soln 15 mL Bottle EACH EYE SCH ×4 (03:32→22:23)
[2016-03-20] MEDS: INSULIN ASPART SLIDING SCALE 100 UNITS/ML UNIT SUBQ SCH ×4 (06:51→22:27)
[2016-03-20 06:57] LABS: HEMOGLOBIN 8.6 gm/dL (13.2-17.3); MEAN CELL VOLUME 83.7 fl (80-99); MEAN CORPUSCULAR HEMOGLOBIN 28.8 pg (26.0-30.0); MEAN CORPUSCULAR HGB CONC 34.4 pg (28.0-36.0); MEAN PLATELET VOLUME 9.2 fl; PLATELET COUNT 79 Th/cmm (150-400); RED BLOOD COUNT 2.99 Mil/cmm (4.30-5.70)
[2016-03-20 07:21] LABS: WHITE BLOOD COUNT 7.7 Th/cmm (4.8-10.8)
[2016-03-20 07:30] LABS: ALB/GLOB RATIO 0.6 (1.0-1.8); ALKALINE PHOSPHATASE 63 U/L (34-104); ANION GAP 11.3 (7.0-16.0); BILIRUBIN,TOTAL 0.9 mg/dL (0.3-1.0); BUN - UREA NITROGEN 27 mg/dL (7-25); CALCIUM SERUM 7.5 mg/dL (8.6-10.3); CARBON DIOXIDE 19.1 mEq/L (21.0-31.0); CHLORIDE 111 mEq/L (98-107); GLUCOSE 79 mg/dL (70-105); POTASSIUM SERUM 4.4 mEq/L (3.5-5.1); SGOT 18 U/L (13-39); SGPT/ALT 21 U/L (7-52); SODIUM SERUM 137 mEq/L (136-145)
[2016-03-20 08:24] LABS: ANISOCYTOSIS 1+; BAND NEUTROPHILE 11 % (0-10); EOSINOPHIL 1 % (0-5); NEUTROPHILS 83 % (40-80); PLATELET ESTIMATE DECREASED PLATELETS (NORMAL); PLATELET MORPHOLOGY NORMAL (NORMAL); TOTAL CELLS COUNTED 100
--- NOTE | 2016-03-20 13:02 | General Progress Note ---
Subjective - Review of Systems Service Date: 03/20/16 Subjective: more alert, comfortable, verbal, eating lunch Objective - Results Result Diagrams: 03/20/16 06:00 03/20/16 06:00 Recent Labs: Laboratory Last Values WBC 7.7 Th/cmm (4.8-10.8) D 03/20/16 06:00 RBC 2.99 Mil/cmm (4.30-5.70) L 03/20/16 06:00 Hgb 8.6 gm/dL (13.2-17.3) L 03/20/16 06:00 Hct 25.0 % (39.0-49.0) L 03/20/16 06:00 MCV 83.7 fl (80-99) 03/20/16 06:00 MCH 28.8 pg (26.0-30.0) 03/20/16 06:00 MCHC Differential 34.4 pg (28.0-36.0) 03/20/16 06:00 RDW 16.0 % (11.5-20.0) 03/20/16 06:00 Plt Count 79 Th/cmm (150-400) L 03/20/16 06:00 MPV 9.2 fl 03/20/16 06:00 Neutrophils % 89.2 % (40.0-80.0) H 03/12/16 04:04 Band Neutrophils % 11 % (0-10) H 03/20/16 06:00 Lymphocytes % 5.2 % (20.0-50.0) L 03/12/16 04:04 Monocytes % 5.3 % (2.0-10.0) 03/12/16 04:04 Eosinophils % 0.2 % (0.0-5.0) 03/12/16 04:04 Basophils % 0.1 % (0.0-2.0) 03/12/16 04:04 Neutrophils (Manual) 83 % (40-80) H 03/20/16 06:00 Lymphocytes 4 % (20-50) L 03/20/16 06:00 Monocytes 1 % (2-10) L 03/20/16 06:00 Eosinophils 1 % (0-5) 03/20/16 06:00 Basophils 0 % (0-3) 03/13/16 07:23 Platelet Estimate DECREASED PLATELETS (NORMAL) 03/20/16 06:00 Platelet Morphology NORMAL (NORMAL) 03/20/16 06:00 Anisocytosis 1+ 03/20/16 06:00 RBC Morph Micro Appear ABNORMAL (NORMAL) 03/20/16 06:00 Eos Smear Source URINE 03/13/16 10:10 Eos Smear Total Cells NONE SEEN (NONE SEEN) 03/13/16 10:10 Plt Count 56 Th/cmm (150-400) L* 03/18/16 06:38 PT 13.7 SECONDS (9.5-11.5) H 03/18/16 06:38 INR 1.35 (0.5-1.4) 03/18/16 06:38 PTT (Actin FS) 32.3 SECONDS (26.0-38.0) 03/18/16 06:38 Fibrinogen 225.0 mg/dL (200.0-400.0) 03/18/16 06:38 D-Dimer 4020 ng/mL (100-400) H 03/18/16 06:38 Sodium 137 mEq/L (136-145) 03/20/16 06:00 Potassium 4.4 mEq/L (3.5-5.1) 03/20/16 06:00 Chloride 111 mEq/L (98-107) H 03/20/16 06:00 Carbon Dioxide 19.1 mEq/L (21.0-31.0) L 03/20/16 06:00 Anion Gap 11.3 (7.0-16.0) 03/20/16 06:00 BUN 27 mg/dL (7-25) H 03/20/16 06:00 Creatinine 1.0 mg/dL (0.7-1.3) 03/20/16 06:00 Est GFR ( Amer) > 60.0 ml/min 03/20/16 06:00 Est GFR (Non-Af Amer) > 60.0 ml/min 03/20/16 06:00 BUN/Creatinine Ratio 27.0 03/20/16 06:00 Glucose 79 mg/dL (70-105) 03/20/16 06:00 POC Glucose 78 MG/DL (70 - 105) 03/20/16 05:52 Hemoglobin A1c % 4.9 % (4.0-6.0) 03/13/16 07:23 Whole Bld Lactic Acid 0.91 mmol/L (0.60-2.00) 03/11/16 16:00 Uric Acid 11.2 mg/dL (4.4-7.6) H 03/13/16 07:23 Calcium 7.5 mg/dL (8.6-10.3) L 03/20/16 06:00 Phosphorus 3.6 mg/dL (2.5-5.0) 03/20/16 06:00 Magnesium 1.9 mg/dL (1.9-2.7) 03/20/16 06:00 Ferritin 479 ng/mL (30-400) H 03/13/16 07:23 Total Bilirubin 0.9 mg/dL (0.3-1.0) 03/20/16 06:00 AST 18 U/L (13-39) 03/20/16 06:00 ALT 21 U/L (7-52) 03/20/16 06:00 Alkaline Phosphatase 63 U/L (34-104) 03/20/16 06:00 Total Protein 4.2 gm/dL (6.0-8.3) L 03/20/16 06:00 Albumin 1.5 gm/dL (4.2-5.5) L 03/20/16 06:00 Globulin 2.7 gm/dL 03/20/16 06:00 Albumin/Globulin Ratio 0.6 (1.0-1.8) L 03/20/16 06:00 Prealbumin <3 mg/dL (10-36) L 03/17/16 05:30 Triglycerides 51 mg/dL (<150) 03/17/16 05:30 Cholesterol 45 mg/dL (<200) 03/17/16 05:30 Lipase 7 U/L (11-82) L 03/12/16 04:04 Carcinoembryonic Ag 39.7 ng/mL (0.0-4.7) H 03/13/16 05:33 Urine Source [place] 03/11/16 16:00 Urine Color YELLOW 03/11/16 16:00 Urine Clarity CLEAR (CLEAR) 03/11/16 16:00 Urine pH 5.5 03/11/16 16:00 Ur Specific [place] 1.015 (1.005-1.030) 03/11/16 16:00 Urine Protein 30 mg/dL (NEGATIVE) H 03/11/16 16:00 Urine Glucose (UA) NEGATIVE mg/dL (NEGATIVE) 03/11/16 16:00 Urine Ketones NEGATIVE mg/dL (NEGATIVE) 03/11/16 16:00 Urine Blood SMALL (NEGATIVE) H 03/11/16 16:00 Urine Nitrate NEGATIVE (NEGATIVE) 03/11/16 16:00 Urine Bilirubin NEGATIVE (NEGATIVE) 03/11/16 16:00 Urine Urobilinogen 0.2 E.U./dL (0.2 - 1.0) 03/11/16 16:00 Ur Leukocyte Esterase SMALL (NEGATIVE) H 03/11/16 16:00 Urine RBC 0-2 /hpf (0-5) H 03/11/16 16:00 Urine WBC 0-2 /hpf (0-5) 03/11/16 16:00 Ur Epithelial Cells RARE /lpf (FEW) 03/11/16 16:00 Urine Bacteria FEW /hpf (NONE SEEN) 03/11/16 16:00 Ur Random Sodium 31 mmol/L 03/13/16 10:10 Urine Creatinine 25.5 mg/dl (Not Estab.) 03/13/16 10:10 Urine Microalbumin 41.4 ug/mL (Not Estab.) 03/13/16 10:10 Microalb/Creat Ratio 162.4 mg/g creat (0.0-30.0) H 03/13/16 10:10 Stool Occult Blood POSITIVE (NEGATIVE) 03/13/16 10:10 Amikacin Peak 14.3 ug/mL (20.0-30.0) L 03/17/16 19:15 Amikacin Trough 4.6 ug/mL (1.0-8.0) 03/17/16 17:30 Random Vancomycin 18.4 ug/mL (5.0-40.0) 03/13/16 07:23 Blood Type O POSITIVE 03/17/16 16:10 Antibody Screen NEGATIVE 03/17/16 16:10 Crossmatch See Detail 03/17/16 16:10 - Physical Exam Vitals and I&O: Vital Signs Temp 98.5 F 03/20/16 08:00 Pulse 100 03/20/16 08:00 Resp 17 03/20/16 08:00 BP 99/63 03/20/16 08:00 Pulse Ox 100 03/20/16 04:00 Intake & Output 03/19/16 03/20/16 03/20/16 18:59 06:59 18:59 Intake Total 3193 1300 100 Output Total 1200 1480 Balance 1993 -180 100 Intake: Intake, IV Amount 1593 100 100 Meropenem 1 gm In Sodium 200 100 100 Chloride 0.9% 100 ml @ 100 mls/hr IV Q8H [facility] Rx# :[id number] Multivitamin Inj 10 ml In 1393 Amino Acids 8.5% 962 ml In Dextrose 70% 371 ml In Intralipids 20% 50 ml @ 90 mls/hr IV .[id number] [facility] Rx#:[id number] Oral 400 TPN/PPN 1200 1200 Output: Urine 1200 1100 Stool 380 Other: # Bowel Movements 2 Stool Characteristics Liquid Liquid Liquid Active Medications: Current Medications Acetaminophen (Tylenol) 650 mg PO Q6H PRN PRN Reason: mild pain or temp >100.4 Stop: 05/10/16 18:36 Allopurinol (Zyloprim) 200 mg PO DAILY [facility] Stop: 05/12/16 09:14 Last Admin: 03/20/16 09:05 Dose: 200 mg Artificial Tears (Artificial Tears Ophth Soln) 1 drop EACH EYE Q6H [facility] Stop: 03/21/16 09:29 Last Admin: 03/20/16 09:30 Dose: 1 drop Hydromorphone HCl (Dilaudid) 2 mg IVP Q4HR PRN PRN Reason: severe pain Stop: 05/18/16 12:23 Last Admin: 03/20/16 12:33 Dose: 2 mg Multivitamins/Minerals 10 ml/Amino Acids/Electrolytes/Dextrose/ Fat Emulsion Intravenous 1,393 mls @ 90 mls/hr IV .[id number] [facility] Stop: 03/20/16 16:00 Last Admin: 03/20/16 01:11 Dose: 100 mls/hr Sodium Chloride (Nacl 0.9%) 1,000 mls @ 10 mls/hr IV .Q24H [facility] Stop: 05/16/16 08:09 Last Admin: 03/17/16 16:41 Dose: 10 mls/hr Meropenem 1 gm/ Sodium (Chloride) 100 mls @ 100 mls/hr IV Q8H [facility] Stop: 05/17/16 08:59 Last Infusion: 03/20/16 10:30 Dose: Infused Multivitamins/Minerals 10 ml/Amino Acids/Electrolytes/Dextrose/ Fat Emulsion Intravenous/ Sterile Water 2,396 mls @ 100 mls/hr IV .[id number] [facility] Stop: 05/19/16 15:59 Insulin Aspart (Novolog Insulin Sliding Scale) 0 units SUBQ ACHS [facility] PRN Reason: Protocol Stop: 05/12/16 16:29 Last Admin: 03/20/16 12:39 Dose: Not Given Lorazepam (Ativan) 0.5 mg IVP Q4HR PRN; Protocol PRN Reason: anxiety/insomnia Stop: 05/18/16 12:24 Megestrol Acetate (Megace) 400 mg PO BID [facility] PRN Reason: Protocol Stop: 05/16/16 08:59 Last Admin: 03/20/16 09:05 Dose: 400 mg Mirtazapine (Remeron) 30 mg PO HS [facility] PRN Reason: Protocol Stop: 05/16/16 20:59 Last Admin: 03/19/16 21:57 Dose: 30 mg Miscellaneous (Ppn Per Pharmacy) 1 ea MC Q24H [facility] Stop: 05/11/16 10:29 Prochlorperazine Maleate (Compazine) 10 mg PO Q6H PRN; Protocol PRN Reason: nausea and vomiting Stop: 05/10/16 18:36 Sodium Bicarbonate (Sodium Bicarbonate) 650 mg PO BID [facility] PRN Reason: Protocol Stop: 05/12/16 16:59 Last Admin: 03/20/16 09:05 Dose: 650 mg General: Alert, Cooperative, No acute distress HEENT: Atraumatic, EOMI, Mucous membr. moist/pink Neck: Supple, +2 carotid pulse wo bruit Cardiovascular: Regular rate, Normal S1, Normal S2 Lungs: Clear to auscultation Abdomen: Bowel sounds, no Tender Extremities: no Edema Neurological: Normal speech, Normal tone Skin: no Rash Assessment/Plan - Assessment Assessment: TURNER- improved ESBL E. 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 severe malnutrition - Plan Plan: kidney fnc has improved Mg, PO4, Ca has improved f/u barium enema f/u electrolytes, cbc adminisister NaHco3 monitor plts closely
[2016-03-20] MEDS: [UNRECOGNIZED DRUG - OTHER] IV SCH (18:21)
--- NOTE | 2016-03-20 20:18 | Infectious Disease Prog Note ---
Infectious Disease Subjective - Review of Systems Service Date: 03/20/16 Subjective: There is no new change. No fever. Very cachectic. Infectious Disease Objective - Results Result Diagrams: 03/20/16 06:00 03/20/16 06:00 Recent Labs: Laboratory Last Values WBC 7.7 Th/cmm (4.8-10.8) D 03/20/16 06:00 RBC 2.99 Mil/cmm (4.30-5.70) L 03/20/16 06:00 Hgb 8.6 gm/dL (13.2-17.3) L 03/20/16 06:00 Hct 25.0 % (39.0-49.0) L 03/20/16 06:00 MCV 83.7 fl (80-99) 03/20/16 06:00 MCH 28.8 pg (26.0-30.0) 03/20/16 06:00 MCHC Differential 34.4 pg (28.0-36.0) 03/20/16 06:00 RDW 16.0 % (11.5-20.0) 03/20/16 06:00 Plt Count 79 Th/cmm (150-400) L 03/20/16 06:00 MPV 9.2 fl 03/20/16 06:00 Neutrophils % 89.2 % (40.0-80.0) H 03/12/16 04:04 Band Neutrophils % 11 % (0-10) H 03/20/16 06:00 Lymphocytes % 5.2 % (20.0-50.0) L 03/12/16 04:04 Monocytes % 5.3 % (2.0-10.0) 03/12/16 04:04 Eosinophils % 0.2 % (0.0-5.0) 03/12/16 04:04 Basophils % 0.1 % (0.0-2.0) 03/12/16 04:04 Neutrophils (Manual) 83 % (40-80) H 03/20/16 06:00 Lymphocytes 4 % (20-50) L 03/20/16 06:00 Monocytes 1 % (2-10) L 03/20/16 06:00 Eosinophils 1 % (0-5) 03/20/16 06:00 Basophils 0 % (0-3) 03/13/16 07:23 Platelet Estimate DECREASED PLATELETS (NORMAL) 03/20/16 06:00 Platelet Morphology NORMAL (NORMAL) 03/20/16 06:00 Anisocytosis 1+ 03/20/16 06:00 RBC Morph Micro Appear ABNORMAL (NORMAL) 03/20/16 06:00 Eos Smear Source URINE 03/13/16 10:10 Eos Smear Total Cells NONE SEEN (NONE SEEN) 03/13/16 10:10 Plt Count 56 Th/cmm (150-400) L* 03/18/16 06:38 PT 13.7 SECONDS (9.5-11.5) H 03/18/16 06:38 INR 1.35 (0.5-1.4) 03/18/16 06:38 PTT (Actin FS) 32.3 SECONDS (26.0-38.0) 03/18/16 06:38 Fibrinogen 225.0 mg/dL (200.0-400.0) 03/18/16 06:38 D-Dimer 4020 ng/mL (100-400) H 03/18/16 06:38 Sodium 137 mEq/L (136-145) 03/20/16 06:00 Potassium 4.4 mEq/L (3.5-5.1) 03/20/16 06:00 Chloride 111 mEq/L (98-107) H 03/20/16 06:00 Carbon Dioxide 19.1 mEq/L (21.0-31.0) L 03/20/16 06:00 Anion Gap 11.3 (7.0-16.0) 03/20/16 06:00 BUN 27 mg/dL (7-25) H 03/20/16 06:00 Creatinine 1.0 mg/dL (0.7-1.3) 03/20/16 06:00 Est GFR ( Amer) > 60.0 ml/min 03/20/16 06:00 Est GFR (Non-Af Amer) > 60.0 ml/min 03/20/16 06:00 BUN/Creatinine Ratio 27.0 03/20/16 06:00 Glucose 79 mg/dL (70-105) 03/20/16 06:00 POC Glucose 132 MG/DL (70 - 105) H 03/20/16 12:35 Hemoglobin A1c % 4.9 % (4.0-6.0) 03/13/16 07:23 Whole Bld Lactic Acid 0.91 mmol/L (0.60-2.00) 03/11/16 16:00 Uric Acid 11.2 mg/dL (4.4-7.6) H 03/13/16 07:23 Calcium 7.5 mg/dL (8.6-10.3) L 03/20/16 06:00 Phosphorus 3.6 mg/dL (2.5-5.0) 03/20/16 06:00 Magnesium 1.9 mg/dL (1.9-2.7) 03/20/16 06:00 Ferritin 479 ng/mL (30-400) H 03/13/16 07:23 Total Bilirubin 0.9 mg/dL (0.3-1.0) 03/20/16 06:00 AST 18 U/L (13-39) 03/20/16 06:00 ALT 21 U/L (7-52) 03/20/16 06:00 Alkaline Phosphatase 63 U/L (34-104) 03/20/16 06:00 Total Protein 4.2 gm/dL (6.0-8.3) L 03/20/16 06:00 Albumin 1.5 gm/dL (4.2-5.5) L 03/20/16 06:00 Globulin 2.7 gm/dL 03/20/16 06:00 Albumin/Globulin Ratio 0.6 (1.0-1.8) L 03/20/16 06:00 Prealbumin <3 mg/dL (10-36) L 03/17/16 05:30 Triglycerides 51 mg/dL (<150) 03/17/16 05:30 Cholesterol 45 mg/dL (<200) 03/17/16 05:30 Lipase 7 U/L (11-82) L 03/12/16 04:04 Carcinoembryonic Ag 39.7 ng/mL (0.0-4.7) H 03/13/16 05:33 Urine Source [place] 03/11/16 16:00 Urine Color YELLOW 03/11/16 16:00 Urine Clarity CLEAR (CLEAR) 03/11/16 16:00 Urine pH 5.5 03/11/16 16:00 Ur Specific [place] 1.015 (1.005-1.030) 03/11/16 16:00 Urine Protein 30 mg/dL (NEGATIVE) H 03/11/16 16:00 Urine Glucose (UA) NEGATIVE mg/dL (NEGATIVE) 03/11/16 16:00 Urine Ketones NEGATIVE mg/dL (NEGATIVE) 03/11/16 16:00 Urine Blood SMALL (NEGATIVE) H 03/11/16 16:00 Urine Nitrate NEGATIVE (NEGATIVE) 03/11/16 16:00 Urine Bilirubin NEGATIVE (NEGATIVE) 03/11/16 16:00 Urine Urobilinogen 0.2 E.U./dL (0.2 - 1.0) 03/11/16 16:00 Ur Leukocyte Esterase SMALL (NEGATIVE) H 03/11/16 16:00 Urine RBC 0-2 /hpf (0-5) H 03/11/16 16:00 Urine WBC 0-2 /hpf (0-5) 03/11/16 16:00 Ur Epithelial Cells RARE /lpf (FEW) 03/11/16 16:00 Urine Bacteria FEW /hpf (NONE SEEN) 03/11/16 16:00 Ur Random Sodium 31 mmol/L 03/13/16 10:10 Urine Creatinine 25.5 mg/dl (Not Estab.) 03/13/16 10:10 Urine Microalbumin 41.4 ug/mL (Not Estab.) 03/13/16 10:10 Microalb/Creat Ratio 162.4 mg/g creat (0.0-30.0) H 03/13/16 10:10 Stool Occult Blood POSITIVE (NEGATIVE) 03/13/16 10:10 Amikacin Peak 14.3 ug/mL (20.0-30.0) L 03/17/16 19:15 Amikacin Trough 4.6 ug/mL (1.0-8.0) 03/17/16 17:30 Random Vancomycin 18.4 ug/mL (5.0-40.0) 03/13/16 07:23 Blood Type O POSITIVE 03/17/16 16:10 Antibody Screen NEGATIVE 03/17/16 16:10 Crossmatch See Detail 03/17/16 16:10 - Physical Exam Vitals and I&O: Vital Signs Temp 98.5 F 03/20/16 17:30 Pulse 95 03/20/16 17:30 Resp 18 03/20/16 17:30 BP 83/54 03/20/16 17:30 Pulse Ox 98 03/20/16 17:30 Intake & Output 03/20/16 03/20/16 03/21/16 06:59 18:59 06:59 Intake Total 1300 100 Output Total 1480 Balance -180 100 Intake: Intake, IV Amount 100 100 Meropenem 1 gm In Sodium 100 100 Chloride 0.9% 100 ml @ 100 mls/hr IV Q8H [facility] Rx# :[id number] TPN/PPN 1200 Output: Urine 1100 Stool 380 Other: Stool Characteristics Liquid Liquid Brown Black Active Medications: Current Medications Acetaminophen (Tylenol) 650 mg PO Q6H PRN PRN Reason: mild pain or temp >100.4 Stop: 05/10/16 18:36 Allopurinol (Zyloprim) 200 mg PO DAILY [facility] Stop: 05/12/16 09:14 Last Admin: 03/20/16 09:05 Dose: 200 mg Artificial Tears (Artificial Tears Ophth Soln) 1 drop EACH EYE Q6H [facility] Stop: 03/21/16 09:29 Last Admin: 03/20/16 18:19 Dose: 1 drop Hydromorphone HCl (Dilaudid) 2 mg IVP Q4HR PRN PRN Reason: severe pain Stop: 05/18/16 12:23 Last Admin: 03/20/16 18:59 Dose: 2 mg Sodium Chloride (Nacl 0.9%) 1,000 mls @ 10 mls/hr IV .Q24H [facility] Stop: 05/16/16 08:09 Last Admin: 03/17/16 16:41 Dose: 10 mls/hr Meropenem 1 gm/ Sodium (Chloride) 100 mls @ 100 mls/hr IV Q8H [facility] Stop: 05/17/16 08:59 Last Admin: 03/20/16 18:05 Dose: 100 mls/hr Multivitamins/Minerals 10 ml/Amino Acids/Electrolytes/Dextrose/ Fat Emulsion Intravenous/ Sterile Water 2,396 mls @ 100 mls/hr IV .[id number] [facility] Stop: 05/19/16 15:59 Last Admin: 03/20/16 18:21 Dose: 100 mls/hr Insulin Aspart (Novolog Insulin Sliding Scale) 0 units SUBQ ACHS [facility] PRN Reason: Protocol Stop: 05/12/16 16:29 Last Admin: 01/06/17 18:10 Dose: Not Given Lorazepam (Ativan) 0.5 mg IVP Q4HR PRN; Protocol PRN Reason: anxiety/insomnia Stop: 05/18/16 12:24 Megestrol Acetate (Megace) 400 mg PO BID [facility] PRN Reason: Protocol Stop: 05/16/16 08:59 Last Admin: 03/20/16 18:04 Dose: 400 mg Mirtazapine (Remeron) 30 mg PO HS [facility] PRN Reason: Protocol Stop: 05/16/16 20:59 Last Admin: 03/19/16 21:57 Dose: 30 mg Miscellaneous (Ppn Per Pharmacy) 1 ea MC Q24H [facility] Stop: 05/11/16 10:29 Prochlorperazine Maleate (Compazine) 10 mg PO Q6H PRN; Protocol PRN Reason: nausea and vomiting Stop: 05/10/16 18:36 Sodium Bicarbonate (Sodium Bicarbonate) 650 mg PO BID [facility] PRN Reason: Protocol Stop: 05/12/16 16:59 Last Admin: 03/20/16 18:04 Dose: 650 mg General: no acute distress, cachectic HEENT: atraumatic, normocephalic, PERRLA, EOMI Neck: supple Cardiovascular: S1S2, regular Lungs: clear to auscultation bilaterally, clear to percussion Abdomen: soft, tender, other (colostomy, ileostomy. b/l nephrostomy.) Extremities: no cyanosis, no clubbing, no edema Neurological: awake, alert, oriented Skin: intact Infectious Disease Assmt/Plan - Assessment Assessment: 1. UTi - ESBL e coli. 2. Pelvic mass, likely CA, abscess was also suuspected. 3. Liver mass, mets versus abscess. ? biopsy may be considered. 4. Nephrostomy b/l. 5. cachexia. 6. Colon ca with mets. - Plan Plan: Contineu meropenem. Hospice eval in process.
[2016-03-21] MEDS: Meropenem 1 GM in Sodium Chloride 0.9% 100 ML IV SCH ×3 (00:32→16:29)
[2016-03-21] MEDS: HYDROmorphone 2 mg/mL 1mL Vial IVP PRN ×6 (00:37→21:27)
[2016-03-21] MEDS: Polyvinyl Alcohol Ophth Soln 15 mL Bottle EACH EYE SCH (03:10)
[2016-03-21] MEDS: INSULIN ASPART SLIDING SCALE 100 UNITS/ML UNIT SUBQ SCH ×3 (06:50→16:35)
[2016-03-21 07:13] LABS: % BASOPHILS 0.2 % (0.0-2.0); % EOSINOPHILS 1.2 % (0.0-5.0); % LYMPHOCYTES 5.3 % (20.0-50.0); % MONOCYTES 4.4 % (2.0-10.0); % NEUTROPHILS 88.9 % (40.0-80.0); HEMATOCRIT 24.2 % (39.0-49.0); HEMOGLOBIN 8.2 gm/dL (13.2-17.3); MEAN CELL VOLUME 85.2 fl (80-99); MEAN CORPUSCULAR HEMOGLOBIN 28.7 pg (26.0-30.0); MEAN CORPUSCULAR HGB CONC 33.7 pg (28.0-36.0); MEAN PLATELET VOLUME 9.1 fl; NEUTROPHILE ABSOLUTE 5.6 Th/cmm (1.8-8.0); PLATELET COUNT 87 Th/cmm (150-400); RED BLOOD COUNT 2.84 Mil/cmm (4.30-5.70); RED CELL DISTRIBUTION WIDTH 15.8 % (11.5-20.0); WHITE BLOOD COUNT 6.3 Th/cmm (4.8-10.8)
[2016-03-21 07:47] LABS: ALB/GLOB RATIO 0.5 (1.0-1.8); ALKALINE PHOSPHATASE 61 U/L (34-104); ANION GAP 10.4 (7.0-16.0); BILIRUBIN,TOTAL 0.6 mg/dL (0.3-1.0); BUN - UREA NITROGEN 30 mg/dL (7-25); BUN/CREATININE RATIO 27.3; CALCIUM SERUM 7.2 mg/dL (8.6-10.3); CHLORIDE 109 mEq/L (98-107); CREATININE - SERUM 1.1 mg/dL (0.7-1.3); GLUCOSE 125 mg/dL (70-105); POTASSIUM SERUM 4.4 mEq/L (3.5-5.1); SGOT 21 U/L (13-39); SGPT/ALT 22 U/L (7-52); SODIUM SERUM 137 mEq/L (136-145)
--- NOTE | 2016-03-21 11:26 | General Progress Note ---
Subjective - Review of Systems Service Date: 03/21/16 Subjective: more alert, comfortable, verbal, eating lunch Objective - Results Result Diagrams: 03/21/16 06:45 03/21/16 06:45 Recent Labs: Laboratory Last Values WBC 6.3 Th/cmm (4.8-10.8) 03/21/16 06:45 RBC 2.84 Mil/cmm (4.30-5.70) L 03/21/16 06:45 Hgb 8.2 gm/dL (13.2-17.3) L 03/21/16 06:45 Hct 24.2 % (39.0-49.0) L 03/21/16 06:45 MCV 85.2 fl (80-99) 03/21/16 06:45 MCH 28.7 pg (26.0-30.0) 03/21/16 06:45 MCHC Differential 33.7 pg (28.0-36.0) 03/21/16 06:45 RDW 15.8 % (11.5-20.0) 03/21/16 06:45 Plt Count 87 Th/cmm (150-400) L 03/21/16 06:45 MPV 9.1 fl 03/21/16 06:45 Neutrophils % 88.9 % (40.0-80.0) H 03/21/16 06:45 Band Neutrophils % 11 % (0-10) H 03/20/16 06:00 Lymphocytes % 5.3 % (20.0-50.0) L 03/21/16 06:45 Monocytes % 4.4 % (2.0-10.0) 03/21/16 06:45 Eosinophils % 1.2 % (0.0-5.0) 03/21/16 06:45 Basophils % 0.2 % (0.0-2.0) 03/21/16 06:45 Neutrophils (Manual) 83 % (40-80) H 03/20/16 06:00 Lymphocytes 4 % (20-50) L 03/20/16 06:00 Monocytes 1 % (2-10) L 03/20/16 06:00 Eosinophils 1 % (0-5) 03/20/16 06:00 Basophils 0 % (0-3) 03/13/16 07:23 Platelet Estimate DECREASED PLATELETS (NORMAL) 03/20/16 06:00 Platelet Morphology NORMAL (NORMAL) 03/20/16 06:00 Anisocytosis 1+ 03/20/16 06:00 RBC Morph Micro Appear ABNORMAL (NORMAL) 03/20/16 06:00 Eos Smear Source URINE 03/13/16 10:10 Eos Smear Total Cells NONE SEEN (NONE SEEN) 03/13/16 10:10 Plt Count 56 Th/cmm (150-400) L* 03/18/16 06:38 PT 13.7 SECONDS (9.5-11.5) H 03/18/16 06:38 INR 1.35 (0.5-1.4) 03/18/16 06:38 PTT (Actin FS) 32.3 SECONDS (26.0-38.0) 03/18/16 06:38 Fibrinogen 225.0 mg/dL (200.0-400.0) 03/18/16 06:38 D-Dimer 4020 ng/mL (100-400) H 03/18/16 06:38 Sodium 137 mEq/L (136-145) 03/21/16 06:45 Potassium 4.4 mEq/L (3.5-5.1) 03/21/16 06:45 Chloride 109 mEq/L (98-107) H 03/21/16 06:45 Carbon Dioxide 22.0 mEq/L (21.0-31.0) 03/21/16 06:45 Anion Gap 10.4 (7.0-16.0) 03/21/16 06:45 BUN 30 mg/dL (7-25) H 03/21/16 06:45 Creatinine 1.1 mg/dL (0.7-1.3) 03/21/16 06:45 Est GFR ( Amer) > 60.0 ml/min 03/21/16 06:45 Est GFR (Non-Af Amer) > 60.0 ml/min 03/21/16 06:45 BUN/Creatinine Ratio 27.3 03/21/16 06:45 Glucose 125 mg/dL (70-105) H 03/21/16 06:45 POC Glucose 120 MG/DL (70 - 105) H 03/21/16 06:48 Hemoglobin A1c % 4.9 % (4.0-6.0) 03/13/16 07:23 Whole Bld Lactic Acid 0.91 mmol/L (0.60-2.00) 03/11/16 16:00 Uric Acid 11.2 mg/dL (4.4-7.6) H 03/13/16 07:23 Calcium 7.2 mg/dL (8.6-10.3) L 03/21/16 06:45 Phosphorus 3.5 mg/dL (2.5-5.0) 03/21/16 06:45 Magnesium 1.9 mg/dL (1.9-2.7) 03/21/16 06:45 Ferritin 479 ng/mL (30-400) H 03/13/16 07:23 Total Bilirubin 0.6 mg/dL (0.3-1.0) 03/21/16 06:45 AST 21 U/L (13-39) 03/21/16 06:45 ALT 22 U/L (7-52) 03/21/16 06:45 Alkaline Phosphatase 61 U/L (34-104) 03/21/16 06:45 Total Protein 4.5 gm/dL (6.0-8.3) L 03/21/16 06:45 Albumin 1.5 gm/dL (4.2-5.5) L 03/21/16 06:45 Globulin 3.0 gm/dL 03/21/16 06:45 Albumin/Globulin Ratio 0.5 (1.0-1.8) L 03/21/16 06:45 Prealbumin <3 mg/dL (10-36) L 03/17/16 05:30 Triglycerides 51 mg/dL (<150) 03/17/16 05:30 Cholesterol 45 mg/dL (<200) 03/17/16 05:30 Lipase 7 U/L (11-82) L 03/12/16 04:04 Carcinoembryonic Ag 39.7 ng/mL (0.0-4.7) H 03/13/16 05:33 Urine Source [place] 03/11/16 16:00 Urine Color YELLOW 03/11/16 16:00 Urine Clarity CLEAR (CLEAR) 03/11/16 16:00 Urine pH 5.5 03/11/16 16:00 Ur Specific [place] 1.015 (1.005-1.030) 03/11/16 16:00 Urine Protein 30 mg/dL (NEGATIVE) H 03/11/16 16:00 Urine Glucose (UA) NEGATIVE mg/dL (NEGATIVE) 03/11/16 16:00 Urine Ketones NEGATIVE mg/dL (NEGATIVE) 03/11/16 16:00 Urine Blood SMALL (NEGATIVE) H 03/11/16 16:00 Urine Nitrate NEGATIVE (NEGATIVE) 03/11/16 16:00 Urine Bilirubin NEGATIVE (NEGATIVE) 03/11/16 16:00 Urine Urobilinogen 0.2 E.U./dL (0.2 - 1.0) 03/11/16 16:00 Ur Leukocyte Esterase SMALL (NEGATIVE) H 03/11/16 16:00 Urine RBC 0-2 /hpf (0-5) H 03/11/16 16:00 Urine WBC 0-2 /hpf (0-5) 03/11/16 16:00 Ur Epithelial Cells RARE /lpf (FEW) 03/11/16 16:00 Urine Bacteria FEW /hpf (NONE SEEN) 03/11/16 16:00 Ur Random Sodium 31 mmol/L 03/13/16 10:10 Urine Creatinine 25.5 mg/dl (Not Estab.) 03/13/16 10:10 Urine Microalbumin 41.4 ug/mL (Not Estab.) 03/13/16 10:10 Microalb/Creat Ratio 162.4 mg/g creat (0.0-30.0) H 03/13/16 10:10 Stool Occult Blood POSITIVE (NEGATIVE) 03/13/16 10:10 Amikacin Peak 14.3 ug/mL (20.0-30.0) L 03/17/16 19:15 Amikacin Trough 4.6 ug/mL (1.0-8.0) 03/17/16 17:30 Random Vancomycin 18.4 ug/mL (5.0-40.0) 03/13/16 07:23 Blood Type O POSITIVE 03/17/16 16:10 Antibody Screen NEGATIVE 03/17/16 16:10 Crossmatch See Detail 03/17/16 16:10 - Physical Exam Vitals and I&O: Vital Signs Temp 96.8 F 03/21/16 08:11 Pulse 87 03/21/16 08:11 Resp 18 03/21/16 08:11 BP 98/61 03/21/16 08:11 Pulse Ox 100 03/21/16 08:11 Intake & Output 03/20/16 03/21/16 03/21/16 18:59 06:59 18:59 Intake Total 100 1400 Output Total 650 Balance 100 750 Intake: Intake, IV Amount 100 200 Meropenem 1 gm In Sodium 100 200 Chloride 0.9% 100 ml @ 100 mls/hr IV Q8H [facility] Rx# :[id number] TPN/PPN 1200 Output: Urine 650 Other: Stool Characteristics Liquid Liquid Liquid Brown Black Active Medications: Current Medications Acetaminophen (Tylenol) 650 mg PO Q6H PRN PRN Reason: mild pain or temp >100.4 Stop: 05/10/16 18:36 Allopurinol (Zyloprim) 200 mg PO DAILY [facility] Stop: 05/12/16 09:14 Last Admin: 03/21/16 08:34 Dose: 200 mg Hydromorphone HCl (Dilaudid) 2 mg IVP Q4HR PRN PRN Reason: severe pain Stop: 05/18/16 12:23 Last Admin: 03/21/16 09:05 Dose: 2 mg Meropenem 1 gm/ Sodium (Chloride) 100 mls @ 100 mls/hr IV Q8H [facility] Stop: 05/17/16 08:59 Last Admin: 03/21/16 08:42 Dose: 100 mls/hr Multivitamins/Minerals 10 ml/Amino Acids/Electrolytes/Dextrose/ Fat Emulsion Intravenous/ Sterile Water 2,396 mls @ 100 mls/hr IV .[id number] [facility] Stop: 05/19/16 15:59 Last Admin: 03/20/16 18:21 Dose: 100 mls/hr Sodium Chloride (Nacl 0.9%) 1,000 mls @ 70 mls/hr IV .[id number] [facility] Stop: 05/16/16 08:09 Insulin Aspart (Novolog Insulin Sliding Scale) 0 units SUBQ ACHS [facility] PRN Reason: Protocol Stop: 05/12/16 16:29 Last Admin: 03/21/16 11:19 Dose: Not Given Lorazepam (Ativan) 0.5 mg IVP Q4HR PRN; Protocol PRN Reason: anxiety/insomnia Stop: 05/18/16 12:24 Megestrol Acetate (Megace) 400 mg PO BID [facility] PRN Reason: Protocol Stop: 05/16/16 08:59 Last Admin: 03/21/16 08:34 Dose: 400 mg Mirtazapine (Remeron) 30 mg PO HS [facility] PRN Reason: Protocol Stop: 05/16/16 20:59 Last Admin: 03/20/16 22:23 Dose: 30 mg Miscellaneous (Tpn Per Pharmacy) 1 ea [facility] PRN PRN PRN Reason: PROTOCOL Stop: 05/20/16 08:53 Prochlorperazine Maleate (Compazine) 10 mg PO Q6H PRN; Protocol PRN Reason: nausea and vomiting Stop: 05/10/16 18:36 Sodium Bicarbonate (Sodium Bicarbonate) 650 mg PO BID [facility] PRN Reason: Protocol Stop: 05/12/16 16:59 Last Admin: 03/21/16 08:34 Dose: 650 mg General: Alert, Cooperative, No acute distress HEENT: Atraumatic, EOMI, Mucous membr. moist/pink Neck: Supple, +2 carotid pulse wo bruit Cardiovascular: Regular rate, Normal S1, Normal S2 Lungs: Clear to auscultation Abdomen: Bowel sounds, Soft Extremities: no Edema Neurological: Normal tone, Sensation intact Skin: no Rash Assessment/Plan - Assessment Assessment: TURNER- improved ESBL E. 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 severe malnutrition - Plan Plan: kidney fnc has improved Mg, PO4, Ca has improved f/u barium enema f/u electrolytes, cbc adminisister NaHco3 monitor plts closely BUN increasing, increase ivf
[2016-03-21] MEDS: Sodium Chloride 0.9% 1,000 ML IV SCH (17:18)
[2016-03-21] MEDS: AMINO ACIDS IV SCH (21:30)
[2016-03-21] MEDS: DEXTROSE IV SCH (21:30)
[2016-03-21] MEDS: [UNRECOGNIZED DRUG - OTHER] IV SCH (21:30)
[2016-03-21] MEDS: MULTIVITAMIN IV SCH (21:30)
--- NOTE | 2016-03-21 22:45 | Infectious Disease Prog Note ---
Infectious Disease Subjective - Review of Systems Service Date: 03/21/16 Subjective: There is no new change. No fever. Very cachectic. Infectious Disease Objective - Results Result Diagrams: 03/21/16 06:45 03/21/16 06:45 Recent Labs: Laboratory Last Values WBC 6.3 Th/cmm (4.8-10.8) 03/21/16 06:45 RBC 2.84 Mil/cmm (4.30-5.70) L 03/21/16 06:45 Hgb 8.2 gm/dL (13.2-17.3) L 03/21/16 06:45 Hct 24.2 % (39.0-49.0) L 03/21/16 06:45 MCV 85.2 fl (80-99) 03/21/16 06:45 MCH 28.7 pg (26.0-30.0) 03/21/16 06:45 MCHC Differential 33.7 pg (28.0-36.0) 03/21/16 06:45 RDW 15.8 % (11.5-20.0) 03/21/16 06:45 Plt Count 87 Th/cmm (150-400) L 03/21/16 06:45 MPV 9.1 fl 03/21/16 06:45 Neutrophils % 88.9 % (40.0-80.0) H 03/21/16 06:45 Band Neutrophils % 11 % (0-10) H 03/20/16 06:00 Lymphocytes % 5.3 % (20.0-50.0) L 03/21/16 06:45 Monocytes % 4.4 % (2.0-10.0) 03/21/16 06:45 Eosinophils % 1.2 % (0.0-5.0) 03/21/16 06:45 Basophils % 0.2 % (0.0-2.0) 03/21/16 06:45 Neutrophils (Manual) 83 % (40-80) H 03/20/16 06:00 Lymphocytes 4 % (20-50) L 03/20/16 06:00 Monocytes 1 % (2-10) L 03/20/16 06:00 Eosinophils 1 % (0-5) 03/20/16 06:00 Basophils 0 % (0-3) 03/13/16 07:23 Platelet Estimate DECREASED PLATELETS (NORMAL) 03/20/16 06:00 Platelet Morphology NORMAL (NORMAL) 03/20/16 06:00 Anisocytosis 1+ 03/20/16 06:00 RBC Morph Micro Appear ABNORMAL (NORMAL) 03/20/16 06:00 Eos Smear Source URINE 03/13/16 10:10 Eos Smear Total Cells NONE SEEN (NONE SEEN) 03/13/16 10:10 Plt Count 56 Th/cmm (150-400) L* 03/18/16 06:38 PT 13.7 SECONDS (9.5-11.5) H 03/18/16 06:38 INR 1.35 (0.5-1.4) 03/18/16 06:38 PTT (Actin FS) 32.3 SECONDS (26.0-38.0) 03/18/16 06:38 Fibrinogen 225.0 mg/dL (200.0-400.0) 03/18/16 06:38 D-Dimer 4020 ng/mL (100-400) H 03/18/16 06:38 Sodium 137 mEq/L (136-145) 03/21/16 06:45 Potassium 4.4 mEq/L (3.5-5.1) 03/21/16 06:45 Chloride 109 mEq/L (98-107) H 03/21/16 06:45 Carbon Dioxide 22.0 mEq/L (21.0-31.0) 03/21/16 06:45 Anion Gap 10.4 (7.0-16.0) 03/21/16 06:45 BUN 30 mg/dL (7-25) H 03/21/16 06:45 Creatinine 1.1 mg/dL (0.7-1.3) 03/21/16 06:45 Est GFR ( Amer) > 60.0 ml/min 03/21/16 06:45 Est GFR (Non-Af Amer) > 60.0 ml/min 03/21/16 06:45 BUN/Creatinine Ratio 27.3 03/21/16 06:45 Glucose 125 mg/dL (70-105) H 03/21/16 06:45 POC Glucose 109 MG/DL (70 - 105) H 03/21/16 16:34 Hemoglobin A1c % 4.9 % (4.0-6.0) 12/30/16 07:23 Whole Bld Lactic Acid 0.91 mmol/L (0.60-2.00) 03/11/16 16:00 Uric Acid 11.2 mg/dL (4.4-7.6) H 03/13/16 07:23 Calcium 7.2 mg/dL (8.6-10.3) L 03/21/16 06:45 Phosphorus 3.5 mg/dL (2.5-5.0) 03/21/16 06:45 Magnesium 1.9 mg/dL (1.9-2.7) 03/21/16 06:45 Ferritin 479 ng/mL (30-400) H 03/13/16 07:23 Total Bilirubin 0.6 mg/dL (0.3-1.0) 03/21/16 06:45 AST 21 U/L (13-39) 03/21/16 06:45 ALT 22 U/L (7-52) 03/21/16 06:45 Alkaline Phosphatase 61 U/L (34-104) 03/21/16 06:45 Total Protein 4.5 gm/dL (6.0-8.3) L 03/21/16 06:45 Albumin 1.5 gm/dL (4.2-5.5) L 03/21/16 06:45 Globulin 3.0 gm/dL 03/21/16 06:45 Albumin/Globulin Ratio 0.5 (1.0-1.8) L 03/21/16 06:45 Prealbumin <3 mg/dL (10-36) L 03/17/16 05:30 Triglycerides 51 mg/dL (<150) 03/17/16 05:30 Cholesterol 45 mg/dL (<200) 03/17/16 05:30 Lipase 7 U/L (11-82) L 03/12/16 04:04 Carcinoembryonic Ag 39.7 ng/mL (0.0-4.7) H 03/13/16 05:33 Urine Source [place] 03/11/16 16:00 Urine Color YELLOW 03/11/16 16:00 Urine Clarity CLEAR (CLEAR) 03/11/16 16:00 Urine pH 5.5 03/11/16 16:00 Ur Specific [place] 1.015 (1.005-1.030) 03/11/16 16:00 Urine Protein 30 mg/dL (NEGATIVE) H 03/11/16 16:00 Urine Glucose (UA) NEGATIVE mg/dL (NEGATIVE) 03/11/16 16:00 Urine Ketones NEGATIVE mg/dL (NEGATIVE) 03/11/16 16:00 Urine Blood SMALL (NEGATIVE) H 03/11/16 16:00 Urine Nitrate NEGATIVE (NEGATIVE) 03/11/16 16:00 Urine Bilirubin NEGATIVE (NEGATIVE) 03/11/16 16:00 Urine Urobilinogen 0.2 E.U./dL (0.2 - 1.0) 03/11/16 16:00 Ur Leukocyte Esterase SMALL (NEGATIVE) H 03/11/16 16:00 Urine RBC 0-2 /hpf (0-5) H 03/11/16 16:00 Urine WBC 0-2 /hpf (0-5) 03/11/16 16:00 Ur Epithelial Cells RARE /lpf (FEW) 03/11/16 16:00 Urine Bacteria FEW /hpf (NONE SEEN) 03/11/16 16:00 Ur Random Sodium 31 mmol/L 03/13/16 10:10 Urine Creatinine 25.5 mg/dl (Not Estab.) 03/13/16 10:10 Urine Microalbumin 41.4 ug/mL (Not Estab.) 03/13/16 10:10 Microalb/Creat Ratio 162.4 mg/g creat (0.0-30.0) H 03/13/16 10:10 Stool Occult Blood POSITIVE (NEGATIVE) 03/13/16 10:10 Amikacin Peak 14.3 ug/mL (20.0-30.0) L 03/17/16 19:15 Amikacin Trough 4.6 ug/mL (1.0-8.0) 03/17/16 17:30 Random Vancomycin 18.4 ug/mL (5.0-40.0) 03/13/16 07:23 Blood Type O POSITIVE 03/17/16 16:10 Antibody Screen NEGATIVE 03/17/16 16:10 Crossmatch See Detail 03/17/16 16:10 - Physical Exam Vitals and I&O: Vital Signs Temp 98.9 F 03/21/16 20:00 Pulse 84 03/21/16 20:00 Resp 19 03/21/16 20:00 BP 98/65 03/21/16 20:00 Pulse Ox 99 03/21/16 20:00 Intake & Output 03/21/16 03/21/16 03/22/16 06:59 18:59 06:59 Intake Total 1400 2496 Output Total 650 Balance 750 2496 Intake: Intake, IV Amount 200 2496 Meropenem 1 gm In Sodium 200 100 Chloride 0.9% 100 ml @ 100 mls/hr IV Q8H [facility] Rx# :[id number] Multivitamin Inj 10 ml In 2396 Amino Acids 15% 347 ml In Dextrose 70% 372 ml In Intralipids 20% 54 ml In Sterile Water for Irrigation 1,613 ml @ 100 mls/hr IV .[id number] [facility] Rx#:[id number] TPN/PPN 1200 Output: Urine 650 Other: Stool Characteristics Liquid Liquid Active Medications: Current Medications Acetaminophen (Tylenol) 650 mg PO Q6H PRN PRN Reason: mild pain or temp >100.4 Stop: 05/10/16 18:36 Allopurinol (Zyloprim) 200 mg PO DAILY [facility] Stop: 05/12/16 09:14 Last Admin: 03/21/16 08:34 Dose: 200 mg Hydromorphone HCl (Dilaudid) 2 mg IVP Q4HR PRN PRN Reason: severe pain Stop: 05/18/16 12:23 Last Admin: 03/21/16 21:27 Dose: 2 mg Meropenem 1 gm/ Sodium (Chloride) 100 mls @ 100 mls/hr IV Q8H [facility] Stop: 05/17/16 08:59 Last Admin: 03/21/16 16:29 Dose: 100 mls/hr Multivitamins/Minerals 10 ml/Amino Acids/Electrolytes/Dextrose/ Fat Emulsion Intravenous/ Sterile Water 2,396 mls @ 100 mls/hr IV .[id number] [facility] Stop: 05/19/16 15:59 Last Admin: 03/21/16 21:30 Dose: 100 mls/hr Sodium Chloride (Nacl 0.9%) 1,000 mls @ 70 mls/hr IV .[id number] [facility] Stop: 05/16/16 08:09 Last Admin: 03/21/16 17:18 Dose: 70 mls/hr Insulin Aspart (Novolog Insulin Sliding Scale) 0 units SUBQ ACHS [facility] PRN Reason: Protocol Stop: 05/12/16 16:29 Last Admin: 03/21/16 16:35 Dose: Not Given Lorazepam (Ativan) 0.5 mg IVP Q4HR PRN; Protocol PRN Reason: anxiety/insomnia Stop: 05/18/16 12:24 Megestrol Acetate (Megace) 400 mg PO BID [facility] PRN Reason: Protocol Stop: 05/16/16 08:59 Last Admin: 03/21/16 16:26 Dose: 400 mg Mirtazapine (Remeron) 30 mg PO HS [facility] PRN Reason: Protocol Stop: 05/16/16 20:59 Last Admin: 03/21/16 21:29 Dose: 30 mg Miscellaneous (Tpn Per Pharmacy) 1 ea [facility] PRN PRN PRN Reason: PROTOCOL Stop: 05/20/16 08:53 Prochlorperazine Maleate (Compazine) 10 mg PO Q6H PRN; Protocol PRN Reason: nausea and vomiting Stop: 05/10/16 18:36 Sodium Bicarbonate (Sodium Bicarbonate) 650 mg PO BID [facility] PRN Reason: Protocol Stop: 05/12/16 16:59 Last Admin: 03/21/16 16:27 Dose: 650 mg General: no acute distress, cachectic HEENT: atraumatic, normocephalic, PERRLA, EOMI, moist mucous membrane Neck: supple, no thyromegaly Cardiovascular: S1S2, regular Lungs: clear to auscultation bilaterally, clear to percussion Abdomen: soft, tender, other (colostomy, urostomy.), no distended Extremities: no cyanosis, no clubbing, no edema Neurological: awake, alert, oriented Skin: intact Infectious Disease Assmt/Plan - Assessment Assessment: 1. UTi - ESBL e coli. 2. Pelvic mass, likely CA, abscess was also suuspected. 3. Liver mass, mets versus abscess. ? biopsy may be considered. 4. Nephrostomy b/l. 5. cachexia. 6. Colon ca with mets. - Plan Plan: Continue meropenem. Hospice eval in process.
[2016-03-22] MEDS: HYDROmorphone 2 mg/mL 1mL Vial IVP PRN ×6 (01:07→21:24)
[2016-03-22] MEDS: Meropenem 1 GM in Sodium Chloride 0.9% 100 ML IV SCH ×3 (01:10→16:37)
[2016-03-22] MEDS: INSULIN ASPART SLIDING SCALE 100 UNITS/ML UNIT SUBQ SCH ×4 (03:24→21:25)
[2016-03-22 06:42] LABS: ALB/GLOB RATIO 0.5 (1.0-1.8); ALKALINE PHOSPHATASE 55 U/L (34-104); BILIRUBIN,TOTAL 0.5 mg/dL (0.3-1.0); BUN - UREA NITROGEN 29 mg/dL (7-25); CARBON DIOXIDE 22.3 mEq/L (21.0-31.0); CHLORIDE 109 mEq/L (98-107); GLUCOSE 88 mg/dL (70-105); POTASSIUM SERUM 4.3 mEq/L (3.5-5.1); SGOT 18 U/L (13-39); SGPT/ALT 19 U/L (7-52); SODIUM SERUM 135 mEq/L (136-145)
[2016-03-22] MEDS: Sodium Chloride 0.9% 1,000 ML IV SCH (13:01)
--- NOTE | 2016-03-22 13:03 | General Progress Note ---
Subjective - Review of Systems Service Date: 03/22/16 Subjective: more alert, comfortable, verbal Objective - Results Result Diagrams: 03/21/16 06:45 03/22/16 06:00 Recent Labs: Laboratory Last Values WBC 6.3 Th/cmm (4.8-10.8) 03/21/16 06:45 RBC 2.84 Mil/cmm (4.30-5.70) L 03/21/16 06:45 Hgb 8.2 gm/dL (13.2-17.3) L 03/21/16 06:45 Hct 24.2 % (39.0-49.0) L 03/21/16 06:45 MCV 85.2 fl (80-99) 03/21/16 06:45 MCH 28.7 pg (26.0-30.0) 03/21/16 06:45 MCHC Differential 33.7 pg (28.0-36.0) 03/21/16 06:45 RDW 15.8 % (11.5-20.0) 03/21/16 06:45 Plt Count 87 Th/cmm (150-400) L 03/21/16 06:45 MPV 9.1 fl 03/21/16 06:45 Neutrophils % 88.9 % (40.0-80.0) H 03/21/16 06:45 Band Neutrophils % 11 % (0-10) H 03/20/16 06:00 Lymphocytes % 5.3 % (20.0-50.0) L 03/21/16 06:45 Monocytes % 4.4 % (2.0-10.0) 03/21/16 06:45 Eosinophils % 1.2 % (0.0-5.0) 03/21/16 06:45 Basophils % 0.2 % (0.0-2.0) 03/21/16 06:45 Neutrophils (Manual) 83 % (40-80) H 03/20/16 06:00 Lymphocytes 4 % (20-50) L 03/20/16 06:00 Monocytes 1 % (2-10) L 03/20/16 06:00 Eosinophils 1 % (0-5) 03/20/16 06:00 Basophils 0 % (0-3) 03/13/16 07:23 Platelet Estimate DECREASED PLATELETS (NORMAL) 03/20/16 06:00 Platelet Morphology NORMAL (NORMAL) 03/20/16 06:00 Anisocytosis 1+ 03/20/16 06:00 RBC Morph Micro Appear ABNORMAL (NORMAL) 03/20/16 06:00 Eos Smear Source URINE 03/13/16 10:10 Eos Smear Total Cells NONE SEEN (NONE SEEN) 03/13/16 10:10 Plt Count 56 Th/cmm (150-400) L* 03/18/16 06:38 PT 13.7 SECONDS (9.5-11.5) H 03/18/16 06:38 INR 1.35 (0.5-1.4) 03/18/16 06:38 PTT (Actin FS) 32.3 SECONDS (26.0-38.0) 03/18/16 06:38 Fibrinogen 225.0 mg/dL (200.0-400.0) 03/18/16 06:38 D-Dimer 4020 ng/mL (100-400) H 03/18/16 06:38 Sodium 135 mEq/L (136-145) L 03/22/16 06:00 Potassium 4.3 mEq/L (3.5-5.1) 03/22/16 06:00 Chloride 109 mEq/L (98-107) H 03/22/16 06:00 Carbon Dioxide 22.3 mEq/L (21.0-31.0) 03/22/16 06:00 Anion Gap 8.0 (7.0-16.0) 03/22/16 06:00 BUN 29 mg/dL (7-25) H 03/22/16 06:00 Creatinine 1.0 mg/dL (0.7-1.3) 03/22/16 06:00 Est GFR ( Amer) > 60.0 ml/min 03/22/16 06:00 Est GFR (Non-Af Amer) > 60.0 ml/min 03/22/16 06:00 BUN/Creatinine Ratio 29.0 03/22/16 06:00 Glucose 88 mg/dL (70-105) 03/22/16 06:00 POC Glucose 98 MG/DL (70 - 105) 03/22/16 11:36 Hemoglobin A1c % 4.9 % (4.0-6.0) 03/13/16 07:23 Whole Bld Lactic Acid 0.91 mmol/L (0.60-2.00) 03/11/16 16:00 Uric Acid 11.2 mg/dL (4.4-7.6) H 03/13/16 07:23 Calcium 7.0 mg/dL (8.6-10.3) L 03/22/16 06:00 Phosphorus 2.9 mg/dL (2.5-5.0) 03/22/16 06:00 Magnesium 1.8 mg/dL (1.9-2.7) L 03/22/16 06:00 Ferritin 479 ng/mL (30-400) H 03/13/16 07:23 Total Bilirubin 0.5 mg/dL (0.3-1.0) 03/22/16 06:00 AST 18 U/L (13-39) 03/22/16 06:00 ALT 19 U/L (7-52) 03/22/16 06:00 Alkaline Phosphatase 55 U/L (34-104) 03/22/16 06:00 Total Protein 4.3 gm/dL (6.0-8.3) L 03/22/16 06:00 Albumin 1.5 gm/dL (4.2-5.5) L 03/22/16 06:00 Globulin 2.8 gm/dL 03/22/16 06:00 Albumin/Globulin Ratio 0.5 (1.0-1.8) L 03/22/16 06:00 Prealbumin <3 mg/dL (10-36) L 03/17/16 05:30 Triglycerides 51 mg/dL (<150) 03/17/16 05:30 Cholesterol 45 mg/dL (<200) 03/17/16 05:30 Lipase 7 U/L (11-82) L 03/12/16 04:04 Carcinoembryonic Ag 39.7 ng/mL (0.0-4.7) H 03/13/16 05:33 Urine Source [place] 03/11/16 16:00 Urine Color YELLOW 03/11/16 16:00 Urine Clarity CLEAR (CLEAR) 03/11/16 16:00 Urine pH 5.5 03/11/16 16:00 Ur Specific [place] 1.015 (1.005-1.030) 03/11/16 16:00 Urine Protein 30 mg/dL (NEGATIVE) H 03/11/16 16:00 Urine Glucose (UA) NEGATIVE mg/dL (NEGATIVE) 03/11/16 16:00 Urine Ketones NEGATIVE mg/dL (NEGATIVE) 03/11/16 16:00 Urine Blood SMALL (NEGATIVE) H 03/11/16 16:00 Urine Nitrate NEGATIVE (NEGATIVE) 03/11/16 16:00 Urine Bilirubin NEGATIVE (NEGATIVE) 03/11/16 16:00 Urine Urobilinogen 0.2 E.U./dL (0.2 - 1.0) 03/11/16 16:00 Ur Leukocyte Esterase SMALL (NEGATIVE) H 03/11/16 16:00 Urine RBC 0-2 /hpf (0-5) H 03/11/16 16:00 Urine WBC 0-2 /hpf (0-5) 03/11/16 16:00 Ur Epithelial Cells RARE /lpf (FEW) 03/11/16 16:00 Urine Bacteria FEW /hpf (NONE SEEN) 03/11/16 16:00 Ur Random Sodium 31 mmol/L 03/13/16 10:10 Urine Creatinine 25.5 mg/dl (Not Estab.) 03/13/16 10:10 Urine Microalbumin 41.4 ug/mL (Not Estab.) 03/13/16 10:10 Microalb/Creat Ratio 162.4 mg/g creat (0.0-30.0) H 03/13/16 10:10 Stool Occult Blood POSITIVE (NEGATIVE) 03/13/16 10:10 Amikacin Peak 14.3 ug/mL (20.0-30.0) L 03/17/16 19:15 Amikacin Trough 4.6 ug/mL (1.0-8.0) 03/17/16 17:30 Random Vancomycin 18.4 ug/mL (5.0-40.0) 03/13/16 07:23 Blood Type O POSITIVE 03/17/16 16:10 Antibody Screen NEGATIVE 03/17/16 16:10 Crossmatch See Detail 03/17/16 16:10 - Physical Exam Vitals and I&O: Vital Signs Temp 98.9 F 03/22/16 12:00 Pulse 99 03/22/16 12:00 Resp 18 03/22/16 12:00 BP 98/59 03/22/16 12:00 Pulse Ox 100 03/22/16 12:00 Intake & Output 03/21/16 03/22/16 03/22/16 18:59 06:59 18:59 Intake Total 2496 1708.333 Output Total 1735 Balance 2496 -26.667 Intake: Intake, IV Amount 2496 108.333 Meropenem 1 gm In Sodium 100 108.333 Chloride 0.9% 100 ml @ 100 mls/hr IV Q8H [facility] Rx# :[id number] Multivitamin Inj 10 ml In 2396 Amino Acids 15% 347 ml In Dextrose 70% 372 ml In Intralipids 20% 54 ml In Sterile Water for Irrigation 1,613 ml @ 100 mls/hr IV .[id number] [facility] Rx#:[id number] Oral 500 TPN/PPN 1100 Output: Urine 1435 Stool 225 Other 75 Other: Stool Characteristics Liquid Liquid Liquid Brown Brown Active Medications: Current Medications Acetaminophen (Tylenol) 650 mg PO Q6H PRN PRN Reason: mild pain or temp >100.4 Stop: 05/10/16 18:36 Allopurinol (Zyloprim) 200 mg PO DAILY [facility] Stop: 05/12/16 09:14 Last Admin: 03/22/16 09:01 Dose: 200 mg Hydromorphone HCl (Dilaudid) 2 mg IVP Q4HR PRN PRN Reason: severe pain Stop: 05/18/16 12:23 Last Admin: 03/22/16 09:01 Dose: 2 mg Meropenem 1 gm/ Sodium (Chloride) 100 mls @ 100 mls/hr IV Q8H [facility] Stop: 05/17/16 08:59 Last Admin: 03/22/16 09:01 Dose: 100 mls/hr Multivitamins/Minerals 10 ml/Amino Acids/Electrolytes/Dextrose/ Fat Emulsion Intravenous/ Sterile Water 2,396 mls @ 100 mls/hr IV .[id number] [facility] Stop: 05/19/16 15:59 Last Admin: 03/21/16 21:30 Dose: 100 mls/hr Sodium Chloride (Nacl 0.9%) 1,000 mls @ 70 mls/hr IV .[id number] [facility] Stop: 05/16/16 08:09 Last Admin: 03/21/16 17:18 Dose: 70 mls/hr Insulin Aspart (Novolog Insulin Sliding Scale) 0 units SUBQ ACHS [facility] PRN Reason: Protocol Stop: 05/12/16 16:29 Last Admin: 03/22/16 11:30 Dose: Not Given Lorazepam (Ativan) 0.5 mg IVP Q4HR PRN; Protocol PRN Reason: anxiety/insomnia Stop: 05/18/16 12:24 Last Admin: 03/22/16 04:24 Dose: 0.5 mg Megestrol Acetate (Megace) 400 mg PO BID [facility] PRN Reason: Protocol Stop: 05/16/16 08:59 Last Admin: 03/22/16 09:01 Dose: 400 mg Mirtazapine (Remeron) 30 mg PO HS [facility] PRN Reason: Protocol Stop: 05/16/16 20:59 Last Admin: 03/21/16 21:29 Dose: 30 mg Miscellaneous (Tpn Per Pharmacy) 1 ea MC PRN PRN PRN Reason: PROTOCOL Stop: 05/20/16 08:53 Prochlorperazine Maleate (Compazine) 10 mg PO Q6H PRN; Protocol PRN Reason: nausea and vomiting Stop: 05/10/16 18:36 Sodium Bicarbonate (Sodium Bicarbonate) 650 mg PO BID [facility] PRN Reason: Protocol Stop: 05/12/16 16:59 Last Admin: 03/22/16 09:01 Dose: 650 mg General: Alert, No acute distress HEENT: Atraumatic, EOMI, Mucous membr. moist/pink Neck: Supple, +2 carotid pulse wo bruit Cardiovascular: Regular rate, Normal S1, Normal S2 Lungs: Clear to auscultation Abdomen: Bowel sounds, Soft Extremities: no Edema Neurological: Sensation intact Skin: no Rash Assessment/Plan - Assessment Assessment: TURNER- improved ESBL E. 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 severe malnutrition disloged right PNT - Plan Plan: kidney fnc has improved Mg, PO4, Ca has improved f/u barium enema f/u electrolytes, cbc adminisister NaHco3 monitor plts closely BUN increasing, increase ivf request IR for replacement of right PNT continue TPN, IVF family considering hospice
[2016-03-22] MEDS: DEXTROSE IV SCH (21:23)
[2016-03-22] MEDS: [UNRECOGNIZED DRUG - OTHER] IV SCH (21:23)
[2016-03-22] MEDS: AMINO ACIDS IV SCH (21:23)
[2016-03-22] MEDS: MULTIVITAMIN IV SCH (21:23)
[2016-03-23] MEDS: Meropenem 1 GM in Sodium Chloride 0.9% 100 ML IV SCH ×3 (00:39→17:22)
[2016-03-23] MEDS: HYDROmorphone 2 mg/mL 1mL Vial IVP PRN ×7 (00:39→23:07)
[2016-03-23] MEDS ORDERED: Dextrose 50% 50 mL Abboject IVP PRN (01:23)
[2016-03-23] MEDS ORDERED: GLUCAGON HCl 1 MG KIT IM PRN (01:23)
[2016-03-23] MEDS: Sodium Chloride 0.9% 1,000 ML IV SCH ×2 (04:08→23:10)
[2016-03-23 06:42] LABS: ANION GAP 6.4 (7.0-16.0); BUN - UREA NITROGEN 26 mg/dL (7-25); CALCIUM SERUM 6.9 mg/dL (8.6-10.3); CARBON DIOXIDE 21.6 mEq/L (21.0-31.0); CHLORIDE 109 mEq/L (98-107); GLUCOSE 85 mg/dL (70-105); SODIUM SERUM 133 mEq/L (136-145)
[2016-03-23 06:43] LABS: ALB/GLOB RATIO 0.5 (1.0-1.8); ALKALINE PHOSPHATASE 55 U/L (34-104); BILIRUBIN,TOTAL 0.5 mg/dL (0.3-1.0); SGOT 15 U/L (13-39); SGPT/ALT 17 U/L (7-52)
[2016-03-23] MEDS: INSULIN ASPART SLIDING SCALE 100 UNITS/ML UNIT SUBQ SCH ×3 (11:47→21:27)
--- NOTE | 2016-03-23 12:26 | History & Physical ---
REFERRING PHYSICIAN: Dr. Wynn. REASON FOR CONSULTATION: Multiple ostomies in abdomen, etiology (?). Thank you for referring this patient to me. HISTORY OF PRESENT ILLNESS: This is 55-year-old male was admitted because of abdominal pain, redness, swelling and drainage from multiple ostomies in the abdomen. It appears that he has had ____ carcinoma, first operated on exactly when (?) apparently a year ago. Attempts had been made over the past several days to obtain records from the hospital where surgery was done. Records have come back from [facility], but this does not specify again the original operation was done at that time. The patient is unable to give any information and attempts to reach the family, brother and mother in [facility] and has been unsuccessful in getting additional information on this patient's past surgical history. LABORATORY STUDIES: Now show the WBC is normal, hemoglobin 8.8, bands of 12%. The chemistry shows elevated BUN and creatinine. ____ is in progress. PHYSICAL EXAMINATION: GENERAL: The patient is awake, but unable to give any information as well as past history. ABDOMEN: There are areas of stomas in the mid abdomen. It appears to be colon. There is one in the right lower quadrant, also with some drainage. There is one in the midline at the incision and what appears to be nephrostomy tubes and/or ____ for aspiration of any infection. The patient needs more information on what is going on in this abdomen and in the urinary system to be able to manage him properly. We will discuss with the other physicians involved as to in which direction to go to manage this patient properly. JOB# [id number]
--- NOTE | 2016-03-23 13:59 | General Progress Note ---
Subjective - Review of Systems Service Date: 03/23/16 Subjective: more alert, comfortable, verbal Objective - Results Result Diagrams: 03/21/16 06:45 03/23/16 05:45 Recent Labs: Laboratory Last Values WBC 6.3 Th/cmm (4.8-10.8) 03/21/16 06:45 RBC 2.84 Mil/cmm (4.30-5.70) L 03/21/16 06:45 Hgb 8.2 gm/dL (13.2-17.3) L 03/21/16 06:45 Hct 24.2 % (39.0-49.0) L 03/21/16 06:45 MCV 85.2 fl (80-99) 03/21/16 06:45 MCH 28.7 pg (26.0-30.0) 03/21/16 06:45 MCHC Differential 33.7 pg (28.0-36.0) 03/21/16 06:45 RDW 15.8 % (11.5-20.0) 03/21/16 06:45 Plt Count 87 Th/cmm (150-400) L 03/21/16 06:45 MPV 9.1 fl 03/21/16 06:45 Neutrophils % 88.9 % (40.0-80.0) H 03/21/16 06:45 Band Neutrophils % 11 % (0-10) H 03/20/16 06:00 Lymphocytes % 5.3 % (20.0-50.0) L 03/21/16 06:45 Monocytes % 4.4 % (2.0-10.0) 03/21/16 06:45 Eosinophils % 1.2 % (0.0-5.0) 03/21/16 06:45 Basophils % 0.2 % (0.0-2.0) 03/21/16 06:45 Neutrophils (Manual) 83 % (40-80) H 03/20/16 06:00 Lymphocytes 4 % (20-50) L 03/20/16 06:00 Monocytes 1 % (2-10) L 03/20/16 06:00 Eosinophils 1 % (0-5) 03/20/16 06:00 Basophils 0 % (0-3) 03/13/16 07:23 Platelet Estimate DECREASED PLATELETS (NORMAL) 03/20/16 06:00 Platelet Morphology NORMAL (NORMAL) 03/20/16 06:00 Anisocytosis 1+ 03/20/16 06:00 RBC Morph Micro Appear ABNORMAL (NORMAL) 03/20/16 06:00 Eos Smear Source URINE 03/13/16 10:10 Eos Smear Total Cells NONE SEEN (NONE SEEN) 03/13/16 10:10 Plt Count 56 Th/cmm (150-400) L* 03/18/16 06:38 PT 13.7 SECONDS (9.5-11.5) H 03/18/16 06:38 INR 1.35 (0.5-1.4) 03/18/16 06:38 PTT (Actin FS) 32.3 SECONDS (26.0-38.0) 03/18/16 06:38 Fibrinogen 225.0 mg/dL (200.0-400.0) 03/18/16 06:38 D-Dimer 4020 ng/mL (100-400) H 03/18/16 06:38 Sodium 133 mEq/L (136-145) L 03/23/16 05:45 Potassium 4.0 mEq/L (3.5-5.1) 03/23/16 05:45 Chloride 109 mEq/L (98-107) H 03/23/16 05:45 Carbon Dioxide 21.6 mEq/L (21.0-31.0) 03/23/16 05:45 Anion Gap 6.4 (7.0-16.0) L 03/23/16 05:45 BUN 26 mg/dL (7-25) H 03/23/16 05:45 Creatinine 1.0 mg/dL (0.7-1.3) 03/23/16 05:45 Est GFR ( Amer) > 60.0 ml/min 03/23/16 05:45 Est GFR (Non-Af Amer) > 60.0 ml/min 03/23/16 05:45 BUN/Creatinine Ratio 26.0 03/23/16 05:45 Glucose 85 mg/dL (70-105) 03/23/16 05:45 POC Glucose 117 MG/DL (70 - 105) H 03/23/16 11:46 Hemoglobin A1c % 4.9 % (4.0-6.0) 03/13/16 07:23 Whole Bld Lactic Acid 0.91 mmol/L (0.60-2.00) 03/11/16 16:00 Uric Acid 11.2 mg/dL (4.4-7.6) H 03/13/16 07:23 Calcium 6.9 mg/dL (8.6-10.3) L 03/23/16 05:45 Phosphorus 3.4 mg/dL (2.5-5.0) 03/23/16 05:45 Magnesium 1.8 mg/dL (1.9-2.7) L 03/23/16 05:45 Ferritin 479 ng/mL (30-400) H 03/13/16 07:23 Total Bilirubin 0.5 mg/dL (0.3-1.0) 03/23/16 05:45 AST 15 U/L (13-39) 03/23/16 05:45 ALT 17 U/L (7-52) 03/23/16 05:45 Alkaline Phosphatase 55 U/L (34-104) 03/23/16 05:45 Total Protein 4.3 gm/dL (6.0-8.3) L 03/23/16 05:45 Albumin < 1.5 gm/dL (4.2-5.5) L 03/23/16 05:45 Globulin 2.8 gm/dL 03/23/16 05:45 Albumin/Globulin Ratio 0.5 (1.0-1.8) L 03/23/16 05:45 Prealbumin <3 mg/dL (10-36) L 03/17/16 05:30 Triglycerides 44 mg/dL (<150) 03/23/16 05:45 Cholesterol 37 mg/dL (<200) 03/23/16 05:45 Lipase 7 U/L (11-82) L 03/12/16 04:04 Carcinoembryonic Ag 39.7 ng/mL (0.0-4.7) H 03/13/16 05:33 Urine Source [place] 03/11/16 16:00 Urine Color YELLOW 03/11/16 16:00 Urine Clarity CLEAR (CLEAR) 03/11/16 16:00 Urine pH 5.5 03/11/16 16:00 Ur Specific [place] 1.015 (1.005-1.030) 03/11/16 16:00 Urine Protein 30 mg/dL (NEGATIVE) H 03/11/16 16:00 Urine Glucose (UA) NEGATIVE mg/dL (NEGATIVE) 03/11/16 16:00 Urine Ketones NEGATIVE mg/dL (NEGATIVE) 03/11/16 16:00 Urine Blood SMALL (NEGATIVE) H 03/11/16 16:00 Urine Nitrate NEGATIVE (NEGATIVE) 03/11/16 16:00 Urine Bilirubin NEGATIVE (NEGATIVE) 03/11/16 16:00 Urine Urobilinogen 0.2 E.U./dL (0.2 - 1.0) 03/11/16 16:00 Ur Leukocyte Esterase SMALL (NEGATIVE) H 03/11/16 16:00 Urine RBC 0-2 /hpf (0-5) H 03/11/16 16:00 Urine WBC 0-2 /hpf (0-5) 03/11/16 16:00 Ur Epithelial Cells RARE /lpf (FEW) 03/11/16 16:00 Urine Bacteria FEW /hpf (NONE SEEN) 03/11/16 16:00 Ur Random Sodium 31 mmol/L 03/13/16 10:10 Urine Creatinine 25.5 mg/dl (Not Estab.) 03/13/16 10:10 Urine Microalbumin 41.4 ug/mL (Not Estab.) 03/13/16 10:10 Microalb/Creat Ratio 162.4 mg/g creat (0.0-30.0) H 03/13/16 10:10 Stool Occult Blood POSITIVE (NEGATIVE) 03/13/16 10:10 Amikacin Peak 14.3 ug/mL (20.0-30.0) L 03/17/16 19:15 Amikacin Trough 4.6 ug/mL (1.0-8.0) 03/17/16 17:30 Random Vancomycin 18.4 ug/mL (5.0-40.0) 03/13/16 07:23 Blood Type O POSITIVE 03/17/16 16:10 Antibody Screen NEGATIVE 03/17/16 16:10 Crossmatch See Detail 03/17/16 16:10 - Physical Exam Vitals and I&O: Vital Signs Temp 98.7 F 03/23/16 08:00 Pulse 96 03/23/16 08:00 Resp 19 03/23/16 08:00 BP 101/63 03/23/16 08:00 Pulse Ox 96 03/23/16 08:00 Intake & Output 03/22/16 03/23/16 03/23/16 18:59 06:59 18:59 Intake Total 3200 3488.333 100 Output Total 1420 Balance 1780 3488.333 100 Intake: Intake, IV Amount 1200 3488.333 100 Meropenem 1 gm In Sodium 200 100 100 Chloride 0.9% 100 ml @ 100 mls/hr IV Q8H [facility] Rx# :[id number] Multivitamin Inj 10 ml In 2388.333 Amino Acids 15% 347 ml In Dextrose 70% 372 ml In Intralipids 20% 54 ml In Sterile Water for Irrigation 1,613 ml @ 100 mls/hr IV .[id number] [facility] Rx#:[id number] Sodium Chloride 0.9% 1, 1000 1000 000 ml @ 70 mls/hr IV . [id number] [facility] Rx#:[id number] Oral 800 TPN/PPN 1200 Output: Urine 1300 Stool 120 Other: Stool Characteristics Liquid Brown Active Medications: Current Medications Acetaminophen (Tylenol) 650 mg PO Q6H PRN PRN Reason: mild pain or temp >100.4 Stop: 05/10/16 18:36 Last Admin: 03/23/16 00:39 Dose: 650 mg Allopurinol (Zyloprim) 200 mg PO DAILY [facility] Stop: 05/12/16 09:14 Last Admin: 03/23/16 09:20 Dose: 200 mg Dextrose (D50w) 50 ml IVP PRN PRN PRN Reason: Blood Glucose less than 70 Stop: 05/22/16 01:22 Dextrose (Glutose 40%) 18.75 gm PO PRN PRN PRN Reason: Blood Glucose less than 70 Stop: 05/22/16 01:22 Glucagon (Glucagen) 1 mg IM PRN PRN PRN Reason: Blood Glucose less than 70 Stop: 05/22/16 01:22 Hydromorphone HCl (Dilaudid) 2 mg IVP Q4HR PRN PRN Reason: severe pain Stop: 05/18/16 12:23 Last Admin: 03/23/16 13:06 Dose: 2 mg Meropenem 1 gm/ Sodium (Chloride) 100 mls @ 100 mls/hr IV Q8H [facility] Stop: 05/17/16 08:59 Last Infusion: 03/23/16 10:25 Dose: Infused Sodium Chloride (Nacl 0.9%) 1,000 mls @ 70 mls/hr IV .[id number] [facility] Stop: 05/16/16 08:09 Last Admin: 03/23/16 04:08 Dose: 70 mls/hr Multivitamins/Minerals 10 ml/Amino Acids/Electrolytes/Dextrose/ Fat Emulsion Intravenous/ Sterile Water 2,400 mls @ 100 mls/hr IV .Q24H [facility] Stop: 05/19/16 15:59 Insulin Aspart (Novolog Insulin Sliding Scale) 0 units SUBQ ACHS [facility] PRN Reason: Protocol Stop: 05/12/16 16:29 Last Admin: 03/23/16 11:47 Dose: Not Given Lorazepam (Ativan) 0.5 mg IVP Q4HR PRN; Protocol PRN Reason: anxiety/insomnia Stop: 05/18/16 12:24 Last Admin: 03/22/16 04:24 Dose: 0.5 mg Megestrol Acetate (Megace) 400 mg PO BID [facility] PRN Reason: Protocol Stop: 05/16/16 08:59 Last Admin: 03/23/16 09:20 Dose: 400 mg Mirtazapine (Remeron) 30 mg PO HS [facility] PRN Reason: Protocol Stop: 05/16/16 20:59 Last Admin: 03/22/16 20:56 Dose: 30 mg Miscellaneous (Tpn Per Pharmacy) 1 ea MC PRN PRN PRN Reason: PROTOCOL Stop: 05/20/16 08:53 Prochlorperazine Maleate (Compazine) 10 mg PO Q6H PRN; Protocol PRN Reason: nausea and vomiting Stop: 05/10/16 18:36 Sodium Bicarbonate (Sodium Bicarbonate) 650 mg PO BID [facility] PRN Reason: Protocol Stop: 05/12/16 16:59 Last Admin: 03/23/16 09:20 Dose: 650 mg General: Alert, No acute distress HEENT: Atraumatic, Mucous membr. moist/pink Neck: Supple, +2 carotid pulse wo bruit Cardiovascular: Regular rate, Normal S1, Normal S2 Lungs: Clear to auscultation Abdomen: Bowel sounds Extremities: no Edema Neurological: Sensation intact Skin: no Rash Assessment/Plan - Assessment Assessment: TURNER- improved ESBL E. 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 severe malnutrition disloged right PNT - Plan Plan: kidney fnc has improved Mg, PO4, Ca has improved f/u barium enema f/u electrolytes, cbc adminisister NaHco3 monitor plts closely BUN increasing, increase ivf request IR for replacement of right PNT continue TPN, IVF family considering hospice discussed w/ Dr. Jones, no right hydronephrosis per US, no need for PNT for now
--- NOTE | 2016-03-23 15:40 | Diagnostic Imaging Report ---
Barium enema HISTORY: Pain, ostomy evaluation The tip could not be advanced into the rectal region. Attempt at insertion through the ostomy site was also unsuccessful. As such, the exam could not be completed.
[2016-03-24] MEDS: Meropenem 1 GM in Sodium Chloride 0.9% 100 ML IV SCH ×3 (01:09→16:32)
[2016-03-24] MEDS: [UNRECOGNIZED DRUG - OTHER] IV SCH ×2 (01:10→16:31)
[2016-03-24] MEDS: AMINO ACIDS IV SCH ×2 (01:10→16:31)
[2016-03-24] MEDS: MULTIVITAMIN IV SCH ×2 (01:10→16:31)
[2016-03-24] MEDS: DEXTROSE IV SCH ×2 (01:10→16:31)
[2016-03-24] MEDS: HYDROmorphone 2 mg/mL 1mL Vial IVP PRN ×6 (03:05→21:16)
[2016-03-24] MEDS: INSULIN ASPART SLIDING SCALE 100 UNITS/ML UNIT SUBQ SCH ×4 (06:30→21:27)
[2016-03-24 06:33] LABS: ANION GAP 4.5 (7.0-16.0); BUN - UREA NITROGEN 22 mg/dL (7-25); BUN/CREATININE RATIO 24.4; CALCIUM SERUM 6.9 mg/dL (8.6-10.3); CARBON DIOXIDE 24.3 mEq/L (21.0-31.0); CHLORIDE 108 mEq/L (98-107); CREATININE - SERUM 0.9 mg/dL (0.7-1.3); GLUCOSE 101 mg/dL (70-105); MAGNESIUM 1.9 mg/dL (1.9-2.7); POTASSIUM SERUM 3.8 mEq/L (3.5-5.1); SODIUM SERUM 133 mEq/L (136-145)
[2016-03-24 07:36] LABS: MEAN CELL VOLUME 85.3 fl (80-99); MEAN CORPUSCULAR HEMOGLOBIN 29.1 pg (26.0-30.0); MEAN CORPUSCULAR HGB CONC 34.1 pg (28.0-36.0); MEAN PLATELET VOLUME 8.6 fl; RED BLOOD COUNT 2.76 Mil/cmm (4.30-5.70); RED CELL DISTRIBUTION WIDTH 15.6 % (11.5-20.0)
[2016-03-24 07:52] LABS: HEMATOCRIT 23.6 % (39.0-49.0)
[2016-03-24 07:53] LABS: PLATELET COUNT 144 Th/cmm (150-400)
[2016-03-24 08:43] LABS: ANISOCYTOSIS 1+; BAND NEUTROPHILE 5 % (0-10); EOSINOPHIL 3 % (0-5); NEUTROPHILS 72 % (40-80); PLATELET ESTIMATE DECREASED PLATELETS (NORMAL); TOTAL CELLS COUNTED 100
[2016-03-24 08:44] LABS: PLATELET MORPHOLOGY NORMAL (NORMAL)
--- NOTE | 2016-03-24 09:32 | Infectious Disease Prog Note ---
Infectious Disease Subjective - Review of Systems Service Date: 03/24/16 Subjective: There is no new change. No fever. Very cachectic. Infectious Disease Objective - Results Result Diagrams: 03/24/16 07:05 03/24/16 06:00 Recent Labs: Laboratory Last Values WBC 4.0 Th/cmm (4.8-10.8) L D 03/24/16 07:05 RBC 2.76 Mil/cmm (4.30-5.70) L 03/24/16 07:05 Hgb 8.0 gm/dL (13.2-17.3) L 03/24/16 07:05 Hct 23.6 % (39.0-49.0) L* 03/24/16 07:05 MCV 85.3 fl (80-99) 03/24/16 07:05 MCH 29.1 pg (26.0-30.0) 03/24/16 07:05 MCHC Differential 34.1 pg (28.0-36.0) 03/24/16 07:05 RDW 15.6 % (11.5-20.0) 03/24/16 07:05 Plt Count 144 Th/cmm (150-400) L D 03/24/16 07:05 MPV 8.6 fl 03/24/16 07:05 Neutrophils % 88.9 % (40.0-80.0) H 03/21/16 06:45 Band Neutrophils % 5 % (0-10) 03/24/16 07:05 Lymphocytes % 5.3 % (20.0-50.0) L 03/21/16 06:45 Monocytes % 4.4 % (2.0-10.0) 03/21/16 06:45 Eosinophils % 1.2 % (0.0-5.0) 03/21/16 06:45 Basophils % 0.2 % (0.0-2.0) 03/21/16 06:45 Neutrophils (Manual) 72 % (40-80) 03/24/16 07:05 Lymphocytes 12 % (20-50) L 03/24/16 07:05 Monocytes 8 % (2-10) 03/24/16 07:05 Eosinophils 3 % (0-5) 03/24/16 07:05 Basophils 0 % (0-3) 03/13/16 07:23 Platelet Estimate DECREASED PLATELETS (NORMAL) 03/24/16 07:05 Platelet Morphology NORMAL (NORMAL) 03/24/16 07:05 Anisocytosis 1+ 03/24/16 07:05 RBC Morph Micro Appear ABNORMAL (NORMAL) 03/24/16 07:05 Eos Smear Source URINE 03/13/16 10:10 Eos Smear Total Cells NONE SEEN (NONE SEEN) 03/13/16 10:10 Plt Count 56 Th/cmm (150-400) L* 03/18/16 06:38 PT 13.7 SECONDS (9.5-11.5) H 03/18/16 06:38 INR 1.35 (0.5-1.4) 03/18/16 06:38 PTT (Actin FS) 32.3 SECONDS (26.0-38.0) 03/18/16 06:38 Fibrinogen 225.0 mg/dL (200.0-400.0) 03/18/16 06:38 D-Dimer 4020 ng/mL (100-400) H 03/18/16 06:38 Sodium 133 mEq/L (136-145) L 03/24/16 06:00 Potassium 3.8 mEq/L (3.5-5.1) 03/24/16 06:00 Chloride 108 mEq/L (98-107) H 03/24/16 06:00 Carbon Dioxide 24.3 mEq/L (21.0-31.0) 03/24/16 06:00 Anion Gap 4.5 (7.0-16.0) L 03/24/16 06:00 BUN 22 mg/dL (7-25) 03/24/16 06:00 Creatinine 0.9 mg/dL (0.7-1.3) 03/24/16 06:00 Est GFR ( Amer) > 60.0 ml/min 03/24/16 06:00 Est GFR (Non-Af Amer) > 60.0 ml/min 03/24/16 06:00 BUN/Creatinine Ratio 24.4 03/24/16 06:00 Glucose 101 mg/dL (70-105) 03/24/16 06:00 POC Glucose 103 MG/DL (70 - 105) 03/24/16 05:59 Hemoglobin A1c % 4.9 % (4.0-6.0) 12/30/16 07:23 Whole Bld Lactic Acid 0.91 mmol/L (0.60-2.00) 03/11/16 16:00 Uric Acid 11.2 mg/dL (4.4-7.6) H 03/13/16 07:23 Calcium 6.9 mg/dL (8.6-10.3) L 03/24/16 06:00 Phosphorus 3.4 mg/dL (2.5-5.0) 03/23/16 05:45 Magnesium 1.9 mg/dL (1.9-2.7) 03/24/16 06:00 Ferritin 479 ng/mL (30-400) H 03/13/16 07:23 Total Bilirubin 0.5 mg/dL (0.3-1.0) 03/23/16 05:45 AST 15 U/L (13-39) 03/23/16 05:45 ALT 17 U/L (7-52) 03/23/16 05:45 Alkaline Phosphatase 55 U/L (34-104) 03/23/16 05:45 Total Protein 4.3 gm/dL (6.0-8.3) L 03/23/16 05:45 Albumin < 1.5 gm/dL (4.2-5.5) L 03/23/16 05:45 Globulin 2.8 gm/dL 03/23/16 05:45 Albumin/Globulin Ratio 0.5 (1.0-1.8) L 03/23/16 05:45 Prealbumin 4 mg/dL (10-36) L 03/23/16 06:00 Triglycerides 44 mg/dL (<150) 03/23/16 05:45 Cholesterol 37 mg/dL (<200) 03/23/16 05:45 Lipase 7 U/L (11-82) L 03/12/16 04:04 Carcinoembryonic Ag 39.7 ng/mL (0.0-4.7) H 03/13/16 05:33 Urine Source [place] 03/11/16 16:00 Urine Color YELLOW 03/11/16 16:00 Urine Clarity CLEAR (CLEAR) 03/11/16 16:00 Urine pH 5.5 03/11/16 16:00 Ur Specific [place] 1.015 (1.005-1.030) 03/11/16 16:00 Urine Protein 30 mg/dL (NEGATIVE) H 03/11/16 16:00 Urine Glucose (UA) NEGATIVE mg/dL (NEGATIVE) 03/11/16 16:00 Urine Ketones NEGATIVE mg/dL (NEGATIVE) 03/11/16 16:00 Urine Blood SMALL (NEGATIVE) H 03/11/16 16:00 Urine Nitrate NEGATIVE (NEGATIVE) 03/11/16 16:00 Urine Bilirubin NEGATIVE (NEGATIVE) 03/11/16 16:00 Urine Urobilinogen 0.2 E.U./dL (0.2 - 1.0) 03/11/16 16:00 Ur Leukocyte Esterase SMALL (NEGATIVE) H 03/11/16 16:00 Urine RBC 0-2 /hpf (0-5) H 03/11/16 16:00 Urine WBC 0-2 /hpf (0-5) 03/11/16 16:00 Ur Epithelial Cells RARE /lpf (FEW) 03/11/16 16:00 Urine Bacteria FEW /hpf (NONE SEEN) 03/11/16 16:00 Ur Random Sodium 31 mmol/L 03/13/16 10:10 Urine Creatinine 25.5 mg/dl (Not Estab.) 03/13/16 10:10 Urine Microalbumin 41.4 ug/mL (Not Estab.) 03/13/16 10:10 Microalb/Creat Ratio 162.4 mg/g creat (0.0-30.0) H 03/13/16 10:10 Stool Occult Blood POSITIVE (NEGATIVE) 03/13/16 10:10 Amikacin Peak 14.3 ug/mL (20.0-30.0) L 03/17/16 19:15 Amikacin Trough 4.6 ug/mL (1.0-8.0) 03/17/16 17:30 Random Vancomycin 18.4 ug/mL (5.0-40.0) 03/13/16 07:23 Blood Type O POSITIVE 03/17/16 16:10 Antibody Screen NEGATIVE 03/17/16 16:10 Crossmatch See Detail 03/17/16 16:10 - Physical Exam Vitals and I&O: Vital Signs Temp 98.1 F 03/24/16 04:00 Pulse 91 03/24/16 08:13 Resp 18 03/24/16 08:13 BP 101/63 03/24/16 04:00 Pulse Ox 100 03/24/16 08:13 Intake & Output 03/23/16 03/24/16 03/24/16 18:59 06:59 18:59 Intake Total 3000 Output Total 1500 Balance 1500 Intake: Intake, IV Amount 1200 Meropenem 1 gm In Sodium 200 Chloride 0.9% 100 ml @ 100 mls/hr IV Q8H [facility] Rx# :[id number] Sodium Chloride 0.9% 1, 1000 000 ml @ 70 mls/hr IV . [id number] [facility] Rx#:[id number] Oral 600 TPN/PPN 1200 Output: Urine 1500 Other: # Bowel Movements 2 Stool Characteristics Liquid Active Medications: Current Medications Acetaminophen (Tylenol) 650 mg PO Q6H PRN PRN Reason: mild pain or temp >100.4 Stop: 05/10/16 18:36 Last Admin: 03/23/16 00:39 Dose: 650 mg Allopurinol (Zyloprim) 200 mg PO DAILY [facility] Stop: 05/12/16 09:14 Last Admin: 03/23/16 09:20 Dose: 200 mg Dextrose (D50w) 50 ml IVP PRN PRN PRN Reason: Blood Glucose less than 70 Stop: 05/22/16 01:22 Dextrose (Glutose 40%) 18.75 gm PO PRN PRN PRN Reason: Blood Glucose less than 70 Stop: 05/22/16 01:22 Glucagon (Glucagen) 1 mg IM PRN PRN PRN Reason: Blood Glucose less than 70 Stop: 05/22/16 01:22 Hydromorphone HCl (Dilaudid) 2 mg IVP Q3H PRN PRN Reason: Pain (Severe) Stop: 05/22/16 14:18 Last Admin: 03/24/16 06:14 Dose: 2 mg Meropenem 1 gm/ Sodium (Chloride) 100 mls @ 100 mls/hr IV Q8H [facility] Stop: 05/17/16 08:59 Last Admin: 03/24/16 01:09 Dose: 100 mls/hr Sodium Chloride (Nacl 0.9%) 1,000 mls @ 70 mls/hr IV .[id number] [facility] Stop: 05/16/16 08:09 Last Admin: 03/23/16 23:10 Dose: 70 mls/hr Multivitamins/Minerals 10 ml/Amino Acids/Electrolytes/Dextrose/ Fat Emulsion Intravenous/ Sterile Water 2,400 mls @ 100 mls/hr IV .Q24H [facility] Stop: 05/19/16 15:59 Last Admin: 03/24/16 01:10 Dose: 100 mls/hr Insulin Aspart (Novolog Insulin Sliding Scale) 0 units SUBQ ACHS [facility] PRN Reason: Protocol Stop: 05/12/16 16:29 Last Admin: 03/23/16 21:27 Dose: Not Given Lorazepam (Ativan) 0.5 mg IVP Q4HR PRN; Protocol PRN Reason: anxiety/insomnia Stop: 05/18/16 12:24 Last Admin: 03/22/16 04:24 Dose: 0.5 mg Megestrol Acetate (Megace) 400 mg PO BID [facility] PRN Reason: Protocol Stop: 05/16/16 08:59 Last Admin: 03/23/16 17:22 Dose: 400 mg Mirtazapine (Remeron) 30 mg PO HS [facility] PRN Reason: Protocol Stop: 05/16/16 20:59 Last Admin: 03/23/16 21:21 Dose: 30 mg Miscellaneous (Tpn Per Pharmacy) 1 ea [facility] PRN PRN PRN Reason: PROTOCOL Stop: 05/20/16 08:53 Prochlorperazine Maleate (Compazine) 10 mg PO Q6H PRN; Protocol PRN Reason: nausea and vomiting Stop: 05/10/16 18:36 Sodium Bicarbonate (Sodium Bicarbonate) 650 mg PO BID [facility] PRN Reason: Protocol Stop: 05/12/16 16:59 Last Admin: 03/23/16 17:21 Dose: 650 mg General: no acute distress, cachectic HEENT: atraumatic, normocephalic, PERRLA, EOMI, moist mucous membrane Neck: supple Cardiovascular: S1S2, regular Lungs: clear to auscultation bilaterally, clear to percussion Abdomen: soft, tender, other (colostomy. Urostomy.), no distended Extremities: edema, no cyanosis, no clubbing Neurological: awake, alert, oriented Skin: intact Infectious Disease Assmt/Plan - Assessment Assessment: 1. UTi - ESBL e coli. 2. Pelvic mass, likely CA, abscess was also suuspected. 3. Liver mass, mets versus abscess. ? biopsy may be considered. 4. Nephrostomy b/l. 5. cachexia. 6. Colon ca with mets. - Plan Plan: Continue meropenem. Hospice eval in process.
--- NOTE | 2016-03-24 11:37 | General Progress Note ---
Subjective - Review of Systems Service Date: 03/24/16 Subjective: more alert, comfortable, verbal, eating some Objective - Results Result Diagrams: 03/24/16 07:05 03/24/16 06:00 Recent Labs: Laboratory Last Values WBC 4.0 Th/cmm (4.8-10.8) L D 03/24/16 07:05 RBC 2.76 Mil/cmm (4.30-5.70) L 03/24/16 07:05 Hgb 8.0 gm/dL (13.2-17.3) L 03/24/16 07:05 Hct 23.6 % (39.0-49.0) L* 03/24/16 07:05 MCV 85.3 fl (80-99) 03/24/16 07:05 MCH 29.1 pg (26.0-30.0) 03/24/16 07:05 MCHC Differential 34.1 pg (28.0-36.0) 03/24/16 07:05 RDW 15.6 % (11.5-20.0) 03/24/16 07:05 Plt Count 144 Th/cmm (150-400) L D 03/24/16 07:05 MPV 8.6 fl 03/24/16 07:05 Neutrophils % 88.9 % (40.0-80.0) H 03/21/16 06:45 Band Neutrophils % 5 % (0-10) 03/24/16 07:05 Lymphocytes % 5.3 % (20.0-50.0) L 03/21/16 06:45 Monocytes % 4.4 % (2.0-10.0) 03/21/16 06:45 Eosinophils % 1.2 % (0.0-5.0) 03/21/16 06:45 Basophils % 0.2 % (0.0-2.0) 03/21/16 06:45 Neutrophils (Manual) 72 % (40-80) 03/24/16 07:05 Lymphocytes 12 % (20-50) L 03/24/16 07:05 Monocytes 8 % (2-10) 03/24/16 07:05 Eosinophils 3 % (0-5) 03/24/16 07:05 Basophils 0 % (0-3) 03/13/16 07:23 Platelet Estimate DECREASED PLATELETS (NORMAL) 03/24/16 07:05 Platelet Morphology NORMAL (NORMAL) 03/24/16 07:05 Anisocytosis 1+ 03/24/16 07:05 RBC Morph Micro Appear ABNORMAL (NORMAL) 03/24/16 07:05 Eos Smear Source URINE 03/13/16 10:10 Eos Smear Total Cells NONE SEEN (NONE SEEN) 03/13/16 10:10 Plt Count 56 Th/cmm (150-400) L* 03/18/16 06:38 PT 13.7 SECONDS (9.5-11.5) H 03/18/16 06:38 INR 1.35 (0.5-1.4) 03/18/16 06:38 PTT (Actin FS) 32.3 SECONDS (26.0-38.0) 03/18/16 06:38 Fibrinogen 225.0 mg/dL (200.0-400.0) 03/18/16 06:38 D-Dimer 4020 ng/mL (100-400) H 03/18/16 06:38 Sodium 133 mEq/L (136-145) L 03/24/16 06:00 Potassium 3.8 mEq/L (3.5-5.1) 03/24/16 06:00 Chloride 108 mEq/L (98-107) H 03/24/16 06:00 Carbon Dioxide 24.3 mEq/L (21.0-31.0) 03/24/16 06:00 Anion Gap 4.5 (7.0-16.0) L 03/24/16 06:00 BUN 22 mg/dL (7-25) 03/24/16 06:00 Creatinine 0.9 mg/dL (0.7-1.3) 03/24/16 06:00 Est GFR ( Amer) > 60.0 ml/min 03/24/16 06:00 Est GFR (Non-Af Amer) > 60.0 ml/min 03/24/16 06:00 BUN/Creatinine Ratio 24.4 03/24/16 06:00 Glucose 101 mg/dL (70-105) 03/24/16 06:00 POC Glucose 103 MG/DL (70 - 105) 03/24/16 05:59 Hemoglobin A1c % 4.9 % (4.0-6.0) 03/13/16 07:23 Whole Bld Lactic Acid 0.91 mmol/L (0.60-2.00) 03/11/16 16:00 Uric Acid 11.2 mg/dL (4.4-7.6) H 03/13/16 07:23 Calcium 6.9 mg/dL (8.6-10.3) L 03/24/16 06:00 Phosphorus 3.4 mg/dL (2.5-5.0) 03/23/16 05:45 Magnesium 1.9 mg/dL (1.9-2.7) 03/24/16 06:00 Ferritin 479 ng/mL (30-400) H 03/13/16 07:23 Total Bilirubin 0.5 mg/dL (0.3-1.0) 03/23/16 05:45 AST 15 U/L (13-39) 03/23/16 05:45 ALT 17 U/L (7-52) 03/23/16 05:45 Alkaline Phosphatase 55 U/L (34-104) 03/23/16 05:45 Total Protein 4.3 gm/dL (6.0-8.3) L 03/23/16 05:45 Albumin < 1.5 gm/dL (4.2-5.5) L 03/23/16 05:45 Globulin 2.8 gm/dL 03/23/16 05:45 Albumin/Globulin Ratio 0.5 (1.0-1.8) L 03/23/16 05:45 Prealbumin 4 mg/dL (10-36) L 03/23/16 06:00 Triglycerides 44 mg/dL (<150) 03/23/16 05:45 Cholesterol 37 mg/dL (<200) 03/23/16 05:45 Lipase 7 U/L (11-82) L 03/12/16 04:04 Carcinoembryonic Ag 39.7 ng/mL (0.0-4.7) H 03/13/16 05:33 Urine Source [place] 03/11/16 16:00 Urine Color YELLOW 03/11/16 16:00 Urine Clarity CLEAR (CLEAR) 03/11/16 16:00 Urine pH 5.5 03/11/16 16:00 Ur Specific [place] 1.015 (1.005-1.030) 03/11/16 16:00 Urine Protein 30 mg/dL (NEGATIVE) H 03/11/16 16:00 Urine Glucose (UA) NEGATIVE mg/dL (NEGATIVE) 03/11/16 16:00 Urine Ketones NEGATIVE mg/dL (NEGATIVE) 03/11/16 16:00 Urine Blood SMALL (NEGATIVE) H 03/11/16 16:00 Urine Nitrate NEGATIVE (NEGATIVE) 03/11/16 16:00 Urine Bilirubin NEGATIVE (NEGATIVE) 03/11/16 16:00 Urine Urobilinogen 0.2 E.U./dL (0.2 - 1.0) 03/11/16 16:00 Ur Leukocyte Esterase SMALL (NEGATIVE) H 03/11/16 16:00 Urine RBC 0-2 /hpf (0-5) H 03/11/16 16:00 Urine WBC 0-2 /hpf (0-5) 03/11/16 16:00 Ur Epithelial Cells RARE /lpf (FEW) 03/11/16 16:00 Urine Bacteria FEW /hpf (NONE SEEN) 03/11/16 16:00 Ur Random Sodium 31 mmol/L 03/13/16 10:10 Urine Creatinine 25.5 mg/dl (Not Estab.) 03/13/16 10:10 Urine Microalbumin 41.4 ug/mL (Not Estab.) 03/13/16 10:10 Microalb/Creat Ratio 162.4 mg/g creat (0.0-30.0) H 03/13/16 10:10 Stool Occult Blood POSITIVE (NEGATIVE) 03/13/16 10:10 Amikacin Peak 14.3 ug/mL (20.0-30.0) L 03/17/16 19:15 Amikacin Trough 4.6 ug/mL (1.0-8.0) 03/17/16 17:30 Random Vancomycin 18.4 ug/mL (5.0-40.0) 03/13/16 07:23 Blood Type O POSITIVE 03/17/16 16:10 Antibody Screen NEGATIVE 03/17/16 16:10 Crossmatch See Detail 03/17/16 16:10 - Physical Exam Vitals and I&O: Vital Signs Temp 98.1 F 03/24/16 04:00 Pulse 91 03/24/16 08:13 Resp 18 03/24/16 08:13 BP 101/63 03/24/16 04:00 Pulse Ox 100 03/24/16 08:13 Intake & Output 03/23/16 03/24/16 03/24/16 18:59 06:59 18:59 Intake Total 3000 100 Output Total 1500 Balance 1500 100 Intake: Intake, IV Amount 1200 100 Meropenem 1 gm In Sodium 200 100 Chloride 0.9% 100 ml @ 100 mls/hr IV Q8H [facility] Rx# :[id number] Sodium Chloride 0.9% 1, 1000 000 ml @ 70 mls/hr IV . [id number] [facility] Rx#:[id number] Oral 600 TPN/PPN 1200 Output: Urine 1500 Other: # Bowel Movements 2 Stool Characteristics Liquid Active Medications: Current Medications Acetaminophen (Tylenol) 650 mg PO Q6H PRN PRN Reason: mild pain or temp >100.4 Stop: 05/10/16 18:36 Last Admin: 03/23/16 00:39 Dose: 650 mg Allopurinol (Zyloprim) 200 mg PO DAILY [facility] Stop: 05/12/16 09:14 Last Admin: 03/24/16 09:43 Dose: 200 mg Dextrose (D50w) 50 ml IVP PRN PRN PRN Reason: Blood Glucose less than 70 Stop: 05/22/16 01:22 Dextrose (Glutose 40%) 18.75 gm PO PRN PRN PRN Reason: Blood Glucose less than 70 Stop: 05/22/16 01:22 Glucagon (Glucagen) 1 mg IM PRN PRN PRN Reason: Blood Glucose less than 70 Stop: 05/22/16 01:22 Hydromorphone HCl (Dilaudid) 2 mg IVP Q3H PRN PRN Reason: Pain (Severe) Stop: 05/22/16 14:18 Last Admin: 03/24/16 09:35 Dose: 2 mg Meropenem 1 gm/ Sodium (Chloride) 100 mls @ 100 mls/hr IV Q8H [facility] Stop: 05/17/16 08:59 Last Admin: 03/24/16 09:35 Dose: 100 mls/hr Sodium Chloride (Nacl 0.9%) 1,000 mls @ 70 mls/hr IV .[id number] [facility] Stop: 05/16/16 08:09 Last Admin: 03/23/16 23:10 Dose: 70 mls/hr Multivitamins/Minerals 10 ml/Amino Acids/Electrolytes/Dextrose/ Fat Emulsion Intravenous/ Sterile Water 2,400 mls @ 100 mls/hr IV .Q24H [facility] Stop: 05/19/16 15:59 Last Admin: 03/24/16 01:10 Dose: 100 mls/hr Insulin Aspart (Novolog Insulin Sliding Scale) 0 units SUBQ ACHS [facility] PRN Reason: Protocol Stop: 05/12/16 16:29 Last Admin: 03/23/16 21:27 Dose: Not Given Lorazepam (Ativan) 0.5 mg IVP Q4HR PRN; Protocol PRN Reason: anxiety/insomnia Stop: 05/18/16 12:24 Last Admin: 03/22/16 04:24 Dose: 0.5 mg Megestrol Acetate (Megace) 400 mg PO BID [facility] PRN Reason: Protocol Stop: 05/16/16 08:59 Last Admin: 03/24/16 09:36 Dose: 400 mg Mirtazapine (Remeron) 30 mg PO HS [facility] PRN Reason: Protocol Stop: 05/16/16 20:59 Last Admin: 03/23/16 21:21 Dose: 30 mg Miscellaneous (Tpn Per Pharmacy) 1 ea MC PRN PRN PRN Reason: PROTOCOL Stop: 05/20/16 08:53 Prochlorperazine Maleate (Compazine) 10 mg PO Q6H PRN; Protocol PRN Reason: nausea and vomiting Stop: 05/10/16 18:36 Sodium Bicarbonate (Sodium Bicarbonate) 650 mg PO BID [facility] PRN Reason: Protocol Stop: 05/12/16 16:59 Last Admin: 03/24/16 09:36 Dose: 650 mg General: Alert, No acute distress HEENT: Atraumatic, Mucous membr. moist/pink Neck: Supple, +2 carotid pulse wo bruit Cardiovascular: Regular rate, Normal S1, Normal S2 Lungs: Clear to auscultation, Other Abdomen: Bowel sounds, Soft Extremities: no Edema Neurological: Sensation intact Skin: no Rash Assessment/Plan - Assessment Assessment: TURNER- improved ESBL E. 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 severe malnutrition disloged right PNT - Plan Plan: kidney fnc has improved Mg, PO4, Ca has improved f/u barium enema f/u electrolytes, cbc adminisister NaHco3 monitor plts closely BUN increasing, increase ivf request IR for replacement of right PNT continue TPN, IVF family considering hospice discussed w/ Dr. Jones, no right hydronephrosis per US, no need for PNT for now corrected Ca based on albumin acceptable @ 8.7
[2016-03-25] MEDS: Meropenem 1 GM in Sodium Chloride 0.9% 100 ML IV SCH ×3 (00:28→17:49)
[2016-03-25] MEDS: HYDROmorphone 2 mg/mL 1mL Vial IVP PRN ×7 (00:29→20:18)
[2016-03-25 06:59] LABS: BUN - UREA NITROGEN 19 mg/dL (7-25); BUN/CREATININE RATIO 23.8; CALCIUM SERUM 6.1 mg/dL (8.6-10.3); CARBON DIOXIDE 23.5 mEq/L (21.0-31.0); CHLORIDE 110 mEq/L (98-107); CREATININE - SERUM 0.8 mg/dL (0.7-1.3); GLUCOSE 84 mg/dL (70-105); POTASSIUM SERUM 3.5 mEq/L (3.5-5.1); SODIUM SERUM 135 mEq/L (136-145)
[2016-03-25] MEDS ORDERED: HYDROmorphone 2 mg/mL 1mL Vial IVP PRN (10:08)
[2016-03-25] MEDS: INSULIN ASPART SLIDING SCALE 100 UNITS/ML UNIT SUBQ SCH ×2 (11:30→20:10)
[2016-03-25] MEDS: Morphine Sulfate 2 mg/mL 1mL Syr IVP PRN ×2 (12:22→23:15)
--- NOTE | 2016-03-25 13:56 | General Progress Note ---
Subjective - Review of Systems Service Date: 03/25/16 Subjective: more alert, comfortable, verbal, eating some Objective - Results Result Diagrams: 03/24/16 07:05 03/25/16 05:56 Recent Labs: Laboratory Last Values WBC 4.0 Th/cmm (4.8-10.8) L D 03/24/16 07:05 RBC 2.76 Mil/cmm (4.30-5.70) L 03/24/16 07:05 Hgb 8.0 gm/dL (13.2-17.3) L 03/24/16 07:05 Hct 23.6 % (39.0-49.0) L* 03/24/16 07:05 MCV 85.3 fl (80-99) 03/24/16 07:05 MCH 29.1 pg (26.0-30.0) 03/24/16 07:05 MCHC Differential 34.1 pg (28.0-36.0) 03/24/16 07:05 RDW 15.6 % (11.5-20.0) 03/24/16 07:05 Plt Count 144 Th/cmm (150-400) L D 03/24/16 07:05 MPV 8.6 fl 03/24/16 07:05 Neutrophils % 88.9 % (40.0-80.0) H 03/21/16 06:45 Band Neutrophils % 5 % (0-10) 03/24/16 07:05 Lymphocytes % 5.3 % (20.0-50.0) L 03/21/16 06:45 Monocytes % 4.4 % (2.0-10.0) 03/21/16 06:45 Eosinophils % 1.2 % (0.0-5.0) 03/21/16 06:45 Basophils % 0.2 % (0.0-2.0) 03/21/16 06:45 Neutrophils (Manual) 72 % (40-80) 03/24/16 07:05 Lymphocytes 12 % (20-50) L 03/24/16 07:05 Monocytes 8 % (2-10) 03/24/16 07:05 Eosinophils 3 % (0-5) 03/24/16 07:05 Basophils 0 % (0-3) 03/13/16 07:23 Platelet Estimate DECREASED PLATELETS (NORMAL) 03/24/16 07:05 Platelet Morphology NORMAL (NORMAL) 03/24/16 07:05 Anisocytosis 1+ 03/24/16 07:05 RBC Morph Micro Appear ABNORMAL (NORMAL) 03/24/16 07:05 Eos Smear Source URINE 03/13/16 10:10 Eos Smear Total Cells NONE SEEN (NONE SEEN) 03/13/16 10:10 Plt Count 56 Th/cmm (150-400) L* 03/18/16 06:38 PT 13.7 SECONDS (9.5-11.5) H 03/18/16 06:38 INR 1.35 (0.5-1.4) 03/18/16 06:38 PTT (Actin FS) 32.3 SECONDS (26.0-38.0) 03/18/16 06:38 Fibrinogen 225.0 mg/dL (200.0-400.0) 03/18/16 06:38 D-Dimer 4020 ng/mL (100-400) H 03/18/16 06:38 Sodium 135 mEq/L (136-145) L 03/25/16 05:56 Potassium 3.5 mEq/L (3.5-5.1) 03/25/16 05:56 Chloride 110 mEq/L (98-107) H 03/25/16 05:56 Carbon Dioxide 23.5 mEq/L (21.0-31.0) 03/25/16 05:56 Anion Gap 5.0 (7.0-16.0) L 03/25/16 05:56 BUN 19 mg/dL (7-25) 03/25/16 05:56 Creatinine 0.8 mg/dL (0.7-1.3) 03/25/16 05:56 Est GFR ( Amer) > 60.0 ml/min 03/25/16 05:56 Est GFR (Non-Af Amer) > 60.0 ml/min 03/25/16 05:56 BUN/Creatinine Ratio 23.8 03/25/16 05:56 Glucose 84 mg/dL (70-105) 03/25/16 05:56 POC Glucose 128 MG/DL (70 - 105) H 03/25/16 12:26 Hemoglobin A1c % 4.9 % (4.0-6.0) 03/13/16 07:23 Plasma/Ser Osmolality TNP 03/13/16 10:10 Whole Bld Lactic Acid 0.91 mmol/L (0.60-2.00) 03/11/16 16:00 Uric Acid 11.2 mg/dL (4.4-7.6) H 03/13/16 07:23 Calcium 6.1 mg/dL (8.6-10.3) L 03/25/16 05:56 Phosphorus 2.5 mg/dL (2.5-5.0) 03/25/16 05:56 Magnesium 1.9 mg/dL (1.9-2.7) 03/25/16 05:56 Ferritin 479 ng/mL (30-400) H 03/13/16 07:23 Total Bilirubin 0.5 mg/dL (0.3-1.0) 03/23/16 05:45 AST 15 U/L (13-39) 03/23/16 05:45 ALT 17 U/L (7-52) 03/23/16 05:45 Alkaline Phosphatase 55 U/L (34-104) 03/23/16 05:45 Total Protein 4.3 gm/dL (6.0-8.3) L 03/23/16 05:45 Albumin < 1.5 gm/dL (4.2-5.5) L 03/23/16 05:45 Globulin 2.8 gm/dL 03/23/16 05:45 Albumin/Globulin Ratio 0.5 (1.0-1.8) L 03/23/16 05:45 Prealbumin 4 mg/dL (10-36) L 03/23/16 06:00 Triglycerides 44 mg/dL (<150) 03/23/16 05:45 Cholesterol 37 mg/dL (<200) 03/23/16 05:45 Lipase 7 U/L (11-82) L 03/12/16 04:04 Carcinoembryonic Ag 39.7 ng/mL (0.0-4.7) H 03/13/16 05:33 Urine Source [place] 03/11/16 16:00 Urine Color YELLOW 03/11/16 16:00 Urine Clarity CLEAR (CLEAR) 03/11/16 16:00 Urine pH 5.5 03/11/16 16:00 Ur Specific [place] 1.015 (1.005-1.030) 03/11/16 16:00 Urine Protein 30 mg/dL (NEGATIVE) H 03/11/16 16:00 Urine Glucose (UA) NEGATIVE mg/dL (NEGATIVE) 03/11/16 16:00 Urine Ketones NEGATIVE mg/dL (NEGATIVE) 03/11/16 16:00 Urine Blood SMALL (NEGATIVE) H 03/11/16 16:00 Urine Nitrate NEGATIVE (NEGATIVE) 03/11/16 16:00 Urine Bilirubin NEGATIVE (NEGATIVE) 03/11/16 16:00 Urine Urobilinogen 0.2 E.U./dL (0.2 - 1.0) 03/11/16 16:00 Ur Leukocyte Esterase SMALL (NEGATIVE) H 03/11/16 16:00 Urine RBC 0-2 /hpf (0-5) H 03/11/16 16:00 Urine WBC 0-2 /hpf (0-5) 03/11/16 16:00 Ur Epithelial Cells RARE /lpf (FEW) 03/11/16 16:00 Urine Bacteria FEW /hpf (NONE SEEN) 03/11/16 16:00 Ur Random Sodium 31 mmol/L 03/13/16 10:10 Urine Creatinine 25.5 mg/dl (Not Estab.) 03/13/16 10:10 Urine Microalbumin 41.4 ug/mL (Not Estab.) 03/13/16 10:10 Microalb/Creat Ratio 162.4 mg/g creat (0.0-30.0) H 03/13/16 10:10 Stool Occult Blood POSITIVE (NEGATIVE) 03/13/16 10:10 Amikacin Peak 14.3 ug/mL (20.0-30.0) L 03/17/16 19:15 Amikacin Trough 4.6 ug/mL (1.0-8.0) 03/17/16 17:30 Random Vancomycin 18.4 ug/mL (5.0-40.0) 03/13/16 07:23 Blood Type O POSITIVE 03/17/16 16:10 Antibody Screen NEGATIVE 03/17/16 16:10 Crossmatch See Detail 03/17/16 16:10 - Physical Exam Vitals and I&O: Vital Signs Temp 98.4 F 03/25/16 12:00 Pulse 94 03/25/16 12:00 Resp 18 03/25/16 12:00 BP 103/58 03/25/16 12:00 Pulse Ox 99 03/25/16 12:00 Intake & Output 03/24/16 03/25/16 03/25/16 18:59 06:59 18:59 Intake Total 3935 1500 Output Total 960 1000 Balance 2975 500 Intake: Intake, IV Amount 1735 100 Meropenem 1 gm In Sodium 200 100 Chloride 0.9% 100 ml @ 100 mls/hr IV Q8H [facility] Rx# :[id number] Multivitamin Inj 10 ml In 1535 Amino Acids 15% 351 ml In Dextrose 70% 372 ml In Intralipids 20% 54 ml In Sterile Water for Irrigation 1,613 ml @ 100 mls/hr IV .Q24H [facility] Rx#: [id number] Oral 1000 200 TPN/PPN 1200 1200 Output: Urine 960 1000 Other: Stool Characteristics Liquid Liquid Liquid [place] Active Medications: Current Medications Acetaminophen (Tylenol) 650 mg PO Q6H PRN PRN Reason: mild pain or temp >100.4 Stop: 05/10/16 18:36 Last Admin: 03/23/16 00:39 Dose: 650 mg Allopurinol (Zyloprim) 200 mg PO DAILY [facility] Stop: 05/12/16 09:14 Last Admin: 03/25/16 09:36 Dose: 200 mg Dextrose (D50w) 50 ml IVP PRN PRN PRN Reason: Blood Glucose less than 70 Stop: 05/22/16 01:22 Dextrose (Glutose 40%) 18.75 gm PO PRN PRN PRN Reason: Blood Glucose less than 70 Stop: 05/22/16 01:22 Glucagon (Glucagen) 1 mg IM PRN PRN PRN Reason: Blood Glucose less than 70 Stop: 05/22/16 01:22 Hydromorphone HCl (Dilaudid) 2 mg IVP Q4HR PRN PRN Reason: Abdominal Pain Stop: 05/24/16 10:05 Meropenem 1 gm/ Sodium (Chloride) 100 mls @ 100 mls/hr IV Q8H [facility] Stop: 05/17/16 08:59 Last Admin: 03/25/16 09:37 Dose: 100 mls/hr Sodium Chloride (Nacl 0.9%) 1,000 mls @ 70 mls/hr IV .[id number] [facility] Stop: 03/25/16 14:59 Last Admin: 03/23/16 23:10 Dose: 70 mls/hr Multivitamins/Minerals 10 ml/Amino Acids/Electrolytes/Dextrose/ Fat Emulsion Intravenous/ Sterile Water 2,400 mls @ 100 mls/hr IV .Q24H [facility] Stop: 03/25/16 14:59 Last Admin: 03/24/16 16:31 Dose: 100 mls/hr Multivitamins/Minerals 10 ml/Dextrose/ Amino Acids/Electrolytes/ Fat Emulsion Intravenous 1,800 mls @ 75 mls/hr IV .Q24H [facility] Stop: 05/24/16 14:59 Sodium Chloride (Nacl 0.9%) 1,000 mls @ 95 mls/hr IV .[id number] [facility] Stop: 05/24/16 14:59 Insulin Aspart (Novolog Insulin Sliding Scale) 0 units SUBQ ACHS [facility] PRN Reason: Protocol Stop: 05/12/16 16:29 Last Admin: 03/24/16 21:27 Dose: Not Given Lorazepam (Ativan) 0.5 mg IVP Q4HR PRN; Protocol PRN Reason: anxiety/insomnia Stop: 05/18/16 12:24 Last Admin: 03/22/16 04:24 Dose: 0.5 mg Megestrol Acetate (Megace) 400 mg PO BID [facility] PRN Reason: Protocol Stop: 05/16/16 08:59 Last Admin: 03/25/16 09:36 Dose: 400 mg Mirtazapine (Remeron) 30 mg PO HS [facility] PRN Reason: Protocol Stop: 05/16/16 20:59 Last Admin: 03/24/16 21:17 Dose: 30 mg Miscellaneous (Tpn Per Pharmacy) 1 ea [facility] PRN PRN PRN Reason: PROTOCOL Stop: 05/20/16 08:53 Morphine Sulfate (Morphine) 1 mg IVP Q2HR PRN PRN Reason: Abdominal Pain Stop: 05/24/16 11:52 Last Admin: 03/25/16 12:22 Dose: 1 mg Prochlorperazine Maleate (Compazine) 10 mg PO Q6H PRN; Protocol PRN Reason: nausea and vomiting Stop: 05/10/16 18:36 Sodium Bicarbonate (Sodium Bicarbonate) 650 mg PO BID [facility] PRN Reason: Protocol Stop: 05/12/16 16:59 Last Admin: 03/25/16 09:36 Dose: 650 mg General: Alert, No acute distress HEENT: Atraumatic, Mucous membr. moist/pink Neck: Supple, +2 carotid pulse wo bruit Cardiovascular: Regular rate, Normal S1, Normal S2 Lungs: Clear to auscultation Abdomen: Bowel sounds, Soft, Other (flat) Extremities: no Edema Neurological: Sensation intact Skin: no Rash Psych/Mental Status: Mental status NL Assessment/Plan - Assessment Assessment: TURNER- improved ESBL E. 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 severe malnutrition disloged right PNT - Plan Plan: kidney fnc has improved Mg, PO4, Ca has improved f/u barium enema f/u electrolytes, cbc adminisister NaHco3 monitor plts closely BUN increasing, increase ivf request IR for replacement of right PNT continue TPN, IVF family considering hospice discussed w/ Dr. Jones, no right hydronephrosis per US, no need for PNT for now corrected Ca based on albumin acceptable @ 8.7 awaiting hospice
[2016-03-25] MEDS: TPN 10%-70% CUSTOM IV SCH (14:36)
[2016-03-25] MEDS: Sodium Chloride 0.9% 1,000 ML IV SCH (14:37)
[2016-03-26] MEDS: HYDROmorphone 2 mg/mL 1mL Vial IVP PRN ×6 (00:33→21:31)
[2016-03-26] MEDS: Meropenem 1 GM in Sodium Chloride 0.9% 100 ML IV SCH ×3 (00:42→19:06)
[2016-03-26] MEDS: Morphine Sulfate 2 mg/mL 1mL Syr IVP PRN ×5 (01:49→20:15)
[2016-03-26] MEDS: Sodium Chloride 0.9% 1,000 ML IV SCH ×2 (03:54→15:55)
[2016-03-26] MEDS: INSULIN ASPART SLIDING SCALE 100 UNITS/ML UNIT SUBQ SCH ×4 (06:44→20:25)
[2016-03-26 07:40] LABS: ANION GAP 4.4 (7.0-16.0); BUN - UREA NITROGEN 23 mg/dL (7-25); BUN/CREATININE RATIO 25.6; CARBON DIOXIDE 26.4 mEq/L (21.0-31.0); CHLORIDE 106 mEq/L (98-107); CREATININE - SERUM 0.9 mg/dL (0.7-1.3); GLUCOSE 106 mg/dL (70-105); POTASSIUM SERUM 3.8 mEq/L (3.5-5.1); SODIUM SERUM 133 mEq/L (136-145)
--- NOTE | 2016-03-26 12:41 | Infectious Disease Prog Note ---
Infectious Disease Subjective - Review of Systems Service Date: 03/26/16 Subjective: There is no new change. No fever. Very cachectic. Infectious Disease Objective - Results Result Diagrams: 03/24/16 07:05 03/26/16 06:05 Recent Labs: Laboratory Last Values WBC 4.0 Th/cmm (4.8-10.8) L D 03/24/16 07:05 RBC 2.76 Mil/cmm (4.30-5.70) L 03/24/16 07:05 Hgb 8.0 gm/dL (13.2-17.3) L 03/24/16 07:05 Hct 23.6 % (39.0-49.0) L* 03/24/16 07:05 MCV 85.3 fl (80-99) 03/24/16 07:05 MCH 29.1 pg (26.0-30.0) 03/24/16 07:05 MCHC Differential 34.1 pg (28.0-36.0) 03/24/16 07:05 RDW 15.6 % (11.5-20.0) 03/24/16 07:05 Plt Count 144 Th/cmm (150-400) L D 03/24/16 07:05 MPV 8.6 fl 03/24/16 07:05 Neutrophils % 88.9 % (40.0-80.0) H 03/21/16 06:45 Band Neutrophils % 5 % (0-10) 03/24/16 07:05 Lymphocytes % 5.3 % (20.0-50.0) L 03/21/16 06:45 Monocytes % 4.4 % (2.0-10.0) 03/21/16 06:45 Eosinophils % 1.2 % (0.0-5.0) 03/21/16 06:45 Basophils % 0.2 % (0.0-2.0) 03/21/16 06:45 Neutrophils (Manual) 72 % (40-80) 03/24/16 07:05 Lymphocytes 12 % (20-50) L 03/24/16 07:05 Monocytes 8 % (2-10) 03/24/16 07:05 Eosinophils 3 % (0-5) 03/24/16 07:05 Basophils 0 % (0-3) 03/13/16 07:23 Platelet Estimate DECREASED PLATELETS (NORMAL) 03/24/16 07:05 Platelet Morphology NORMAL (NORMAL) 03/24/16 07:05 Anisocytosis 1+ 03/24/16 07:05 RBC Morph Micro Appear ABNORMAL (NORMAL) 03/24/16 07:05 Eos Smear Source URINE 03/13/16 10:10 Eos Smear Total Cells NONE SEEN (NONE SEEN) 03/13/16 10:10 Plt Count 56 Th/cmm (150-400) L* 03/18/16 06:38 PT 13.7 SECONDS (9.5-11.5) H 03/18/16 06:38 INR 1.35 (0.5-1.4) 03/18/16 06:38 PTT (Actin FS) 32.3 SECONDS (26.0-38.0) 03/18/16 06:38 Fibrinogen 225.0 mg/dL (200.0-400.0) 03/18/16 06:38 D-Dimer 4020 ng/mL (100-400) H 03/18/16 06:38 Sodium 133 mEq/L (136-145) L 03/26/16 06:05 Potassium 3.8 mEq/L (3.5-5.1) 03/26/16 06:05 Chloride 106 mEq/L (98-107) 03/26/16 06:05 Carbon Dioxide 26.4 mEq/L (21.0-31.0) 03/26/16 06:05 Anion Gap 4.4 (7.0-16.0) L 03/26/16 06:05 BUN 23 mg/dL (7-25) 03/26/16 06:05 Creatinine 0.9 mg/dL (0.7-1.3) 03/26/16 06:05 Est GFR ( Amer) > 60.0 ml/min 03/26/16 06:05 Est GFR (Non-Af Amer) > 60.0 ml/min 03/26/16 06:05 BUN/Creatinine Ratio 25.6 03/26/16 06:05 Glucose 106 mg/dL (70-105) H 03/26/16 06:05 POC Glucose 105 MG/DL (70 - 105) 03/26/16 11:38 Hemoglobin A1c % 4.9 % (4.0-6.0) 03/13/16 07:23 Plasma/Ser Osmolality 278 mOsmol/kg (275-295) 03/24/16 07:05 Whole Bld Lactic Acid 0.91 mmol/L (0.60-2.00) 03/11/16 16:00 Uric Acid 11.2 mg/dL (4.4-7.6) H 03/13/16 07:23 Calcium 7.0 mg/dL (8.6-10.3) L 03/26/16 06:05 Phosphorus 2.5 mg/dL (2.5-5.0) 03/26/16 06:05 Magnesium 2.3 mg/dL (1.9-2.7) 03/26/16 06:05 Ferritin 479 ng/mL (30-400) H 03/13/16 07:23 Total Bilirubin 0.5 mg/dL (0.3-1.0) 03/23/16 05:45 AST 15 U/L (13-39) 03/23/16 05:45 ALT 17 U/L (7-52) 03/23/16 05:45 Alkaline Phosphatase 55 U/L (34-104) 03/23/16 05:45 Total Protein 4.3 gm/dL (6.0-8.3) L 03/23/16 05:45 Albumin < 1.5 gm/dL (4.2-5.5) L 03/23/16 05:45 Globulin 2.8 gm/dL 03/23/16 05:45 Albumin/Globulin Ratio 0.5 (1.0-1.8) L 03/23/16 05:45 Prealbumin 4 mg/dL (10-36) L 03/23/16 06:00 Triglycerides 44 mg/dL (<150) 03/23/16 05:45 Cholesterol 37 mg/dL (<200) 03/23/16 05:45 Lipase 7 U/L (11-82) L 03/12/16 04:04 Carcinoembryonic Ag 39.7 ng/mL (0.0-4.7) H 03/13/16 05:33 Urine Source [place] 03/11/16 16:00 Urine Color YELLOW 03/11/16 16:00 Urine Clarity CLEAR (CLEAR) 03/11/16 16:00 Urine pH 5.5 03/11/16 16:00 Ur Specific [place] 1.015 (1.005-1.030) 03/11/16 16:00 Urine Protein 30 mg/dL (NEGATIVE) H 03/11/16 16:00 Urine Glucose (UA) NEGATIVE mg/dL (NEGATIVE) 03/11/16 16:00 Urine Ketones NEGATIVE mg/dL (NEGATIVE) 03/11/16 16:00 Urine Blood SMALL (NEGATIVE) H 03/11/16 16:00 Urine Nitrate NEGATIVE (NEGATIVE) 03/11/16 16:00 Urine Bilirubin NEGATIVE (NEGATIVE) 03/11/16 16:00 Urine Urobilinogen 0.2 E.U./dL (0.2 - 1.0) 03/11/16 16:00 Ur Leukocyte Esterase SMALL (NEGATIVE) H 03/11/16 16:00 Urine RBC 0-2 /hpf (0-5) H 03/11/16 16:00 Urine WBC 0-2 /hpf (0-5) 03/11/16 16:00 Ur Epithelial Cells RARE /lpf (FEW) 03/11/16 16:00 Urine Bacteria FEW /hpf (NONE SEEN) 03/11/16 16:00 Ur Random Sodium 31 mmol/L 03/13/16 10:10 Urine Creatinine 25.5 mg/dl (Not Estab.) 03/13/16 10:10 Urine Microalbumin 41.4 ug/mL (Not Estab.) 03/13/16 10:10 Microalb/Creat Ratio 162.4 mg/g creat (0.0-30.0) H 03/13/16 10:10 Stool Occult Blood POSITIVE (NEGATIVE) 03/13/16 10:10 Amikacin Peak 14.3 ug/mL (20.0-30.0) L 03/17/16 19:15 Amikacin Trough 4.6 ug/mL (1.0-8.0) 03/17/16 17:30 Random Vancomycin 18.4 ug/mL (5.0-40.0) 03/13/16 07:23 Blood Type O POSITIVE 03/17/16 16:10 Antibody Screen NEGATIVE 03/17/16 16:10 Crossmatch See Detail 03/17/16 16:10 - Physical Exam Vitals and I&O: Vital Signs Temp 98 F 03/26/16 03:58 Pulse 92 03/26/16 03:58 Resp 18 03/26/16 03:58 BP 93/64 03/26/16 03:58 Pulse Ox 100 03/26/16 03:58 Intake & Output 03/25/16 03/26/16 03/26/16 18:59 06:59 18:59 Intake Total 200 100 Balance 200 100 Intake: Intake, IV Amount 200 100 Meropenem 1 gm In Sodium 200 100 Chloride 0.9% 100 ml @ 100 mls/hr IV Q8H [facility] Rx# :[id number] Sodium Chloride 0.9% 1, 0 000 ml @ 95 mls/hr IV . [id number] [facility] Rx#:[id number] Other: Stool Characteristics Liquid Brown Salazar Active Medications: Current Medications Acetaminophen (Tylenol) 650 mg PO Q6H PRN PRN Reason: mild pain or temp >100.4 Stop: 05/10/16 18:36 Last Admin: 03/23/16 00:39 Dose: 650 mg Allopurinol (Zyloprim) 200 mg PO DAILY [facility] Stop: 05/12/16 09:14 Last Admin: 03/26/16 09:14 Dose: 200 mg Dextrose (D50w) 50 ml IVP PRN PRN PRN Reason: Blood Glucose less than 70 Stop: 05/22/16 01:22 Dextrose (Glutose 40%) 18.75 gm PO PRN PRN PRN Reason: Blood Glucose less than 70 Stop: 05/22/16 01:22 Glucagon (Glucagen) 1 mg IM PRN PRN PRN Reason: Blood Glucose less than 70 Stop: 05/22/16 01:22 Hydromorphone HCl (Dilaudid) 2 mg IVP Q4HR PRN PRN Reason: Abdominal Pain Stop: 05/24/16 10:05 Last Admin: 03/26/16 11:37 Dose: 2 mg Meropenem 1 gm/ Sodium (Chloride) 100 mls @ 100 mls/hr IV Q8H [facility] Stop: 05/17/16 08:59 Last Admin: 03/26/16 09:16 Dose: 100 mls/hr Multivitamins/Minerals 10 ml/Dextrose/ Amino Acids/Electrolytes/ Fat Emulsion Intravenous 1,800 mls @ 75 mls/hr IV .Q24H [facility] Stop: 05/24/16 14:59 Last Admin: 03/25/16 14:36 Dose: 75 mls/hr Sodium Chloride (Nacl 0.9%) 1,000 mls @ 95 mls/hr IV .[id number] [facility] Stop: 05/24/16 14:59 Last Admin: 03/26/16 03:54 Dose: 95 mls/hr Insulin Aspart (Novolog Insulin Sliding Scale) 0 units SUBQ ACHS [facility] PRN Reason: Protocol Stop: 05/12/16 16:29 Last Admin: 03/26/16 11:38 Dose: Not Given Lorazepam (Ativan) 0.5 mg IVP Q4HR PRN; Protocol PRN Reason: anxiety/insomnia Stop: 05/18/16 12:24 Last Admin: 03/22/16 04:24 Dose: 0.5 mg Megestrol Acetate (Megace) 400 mg PO BID [facility] PRN Reason: Protocol Stop: 05/16/16 08:59 Last Admin: 03/26/16 09:13 Dose: 400 mg Mirtazapine (Remeron) 30 mg PO HS [facility] PRN Reason: Protocol Stop: 05/16/16 20:59 Last Admin: 03/25/16 20:11 Dose: 30 mg Miscellaneous (Tpn Per Pharmacy) 1 ea [facility] PRN PRN PRN Reason: PROTOCOL Stop: 05/20/16 08:53 Morphine Sulfate (Morphine) 1 mg IVP Q2HR PRN PRN Reason: Abdominal Pain Stop: 05/24/16 11:52 Last Admin: 03/26/16 09:24 Dose: 1 mg Prochlorperazine Maleate (Compazine) 10 mg PO Q6H PRN; Protocol PRN Reason: nausea and vomiting Stop: 05/10/16 18:36 Sodium Bicarbonate (Sodium Bicarbonate) 650 mg PO BID [facility] PRN Reason: Protocol Stop: 05/12/16 16:59 Last Admin: 03/26/16 09:14 Dose: 650 mg General: no acute distress, well developed, well nourished HEENT: atraumatic, normocephalic, PERRLA, EOMI Neck: supple Cardiovascular: S1S2, regular Lungs: clear to auscultation bilaterally, clear to percussion Abdomen: soft, tender, other (colostomy, urostomy.), no distended Extremities: no cyanosis, no clubbing, no edema Neurological: awake, alert, oriented Infectious Disease Assmt/Plan - Assessment Assessment: 1. UTi - ESBL e coli. 2. Pelvic mass, likely CA, abscess was also suuspected. 3. Liver mass, mets versus abscess. ? biopsy may be considered. 4. Nephrostomy b/l. 5. cachexia. 6. Colon ca with mets. - Plan Plan: Continue meropenem. Hospice eval in process.
--- NOTE | 2016-03-26 13:12 | General Progress Note ---
Subjective - Review of Systems Service Date: 03/26/16 Subjective: more alert, comfortable, verbal, eating some Objective - Results Result Diagrams: 03/24/16 07:05 03/26/16 06:05 Recent Labs: Laboratory Last Values WBC 4.0 Th/cmm (4.8-10.8) L D 03/24/16 07:05 RBC 2.76 Mil/cmm (4.30-5.70) L 03/24/16 07:05 Hgb 8.0 gm/dL (13.2-17.3) L 03/24/16 07:05 Hct 23.6 % (39.0-49.0) L* 03/24/16 07:05 MCV 85.3 fl (80-99) 03/24/16 07:05 MCH 29.1 pg (26.0-30.0) 03/24/16 07:05 MCHC Differential 34.1 pg (28.0-36.0) 03/24/16 07:05 RDW 15.6 % (11.5-20.0) 03/24/16 07:05 Plt Count 144 Th/cmm (150-400) L D 03/24/16 07:05 MPV 8.6 fl 03/24/16 07:05 Neutrophils % 88.9 % (40.0-80.0) H 03/21/16 06:45 Band Neutrophils % 5 % (0-10) 03/24/16 07:05 Lymphocytes % 5.3 % (20.0-50.0) L 03/21/16 06:45 Monocytes % 4.4 % (2.0-10.0) 03/21/16 06:45 Eosinophils % 1.2 % (0.0-5.0) 03/21/16 06:45 Basophils % 0.2 % (0.0-2.0) 03/21/16 06:45 Neutrophils (Manual) 72 % (40-80) 03/24/16 07:05 Lymphocytes 12 % (20-50) L 03/24/16 07:05 Monocytes 8 % (2-10) 03/24/16 07:05 Eosinophils 3 % (0-5) 03/24/16 07:05 Basophils 0 % (0-3) 03/13/16 07:23 Platelet Estimate DECREASED PLATELETS (NORMAL) 03/24/16 07:05 Platelet Morphology NORMAL (NORMAL) 03/24/16 07:05 Anisocytosis 1+ 03/24/16 07:05 RBC Morph Micro Appear ABNORMAL (NORMAL) 03/24/16 07:05 Eos Smear Source URINE 03/13/16 10:10 Eos Smear Total Cells NONE SEEN (NONE SEEN) 03/13/16 10:10 Plt Count 56 Th/cmm (150-400) L* 03/18/16 06:38 PT 13.7 SECONDS (9.5-11.5) H 03/18/16 06:38 INR 1.35 (0.5-1.4) 03/18/16 06:38 PTT (Actin FS) 32.3 SECONDS (26.0-38.0) 03/18/16 06:38 Fibrinogen 225.0 mg/dL (200.0-400.0) 03/18/16 06:38 D-Dimer 4020 ng/mL (100-400) H 03/18/16 06:38 Sodium 133 mEq/L (136-145) L 03/26/16 06:05 Potassium 3.8 mEq/L (3.5-5.1) 03/26/16 06:05 Chloride 106 mEq/L (98-107) 03/26/16 06:05 Carbon Dioxide 26.4 mEq/L (21.0-31.0) 03/26/16 06:05 Anion Gap 4.4 (7.0-16.0) L 03/26/16 06:05 BUN 23 mg/dL (7-25) 03/26/16 06:05 Creatinine 0.9 mg/dL (0.7-1.3) 03/26/16 06:05 Est GFR ( Amer) > 60.0 ml/min 03/26/16 06:05 Est GFR (Non-Af Amer) > 60.0 ml/min 03/26/16 06:05 BUN/Creatinine Ratio 25.6 03/26/16 06:05 Glucose 106 mg/dL (70-105) H 03/26/16 06:05 POC Glucose 105 MG/DL (70 - 105) 03/26/16 11:38 Hemoglobin A1c % 4.9 % (4.0-6.0) 03/13/16 07:23 Plasma/Ser Osmolality 278 mOsmol/kg (275-295) 03/24/16 07:05 Whole Bld Lactic Acid 0.91 mmol/L (0.60-2.00) 03/11/16 16:00 Uric Acid 11.2 mg/dL (4.4-7.6) H 03/13/16 07:23 Calcium 7.0 mg/dL (8.6-10.3) L 03/26/16 06:05 Phosphorus 2.5 mg/dL (2.5-5.0) 03/26/16 06:05 Magnesium 2.3 mg/dL (1.9-2.7) 03/26/16 06:05 Ferritin 479 ng/mL (30-400) H 03/13/16 07:23 Total Bilirubin 0.5 mg/dL (0.3-1.0) 03/23/16 05:45 AST 15 U/L (13-39) 03/23/16 05:45 ALT 17 U/L (7-52) 03/23/16 05:45 Alkaline Phosphatase 55 U/L (34-104) 03/23/16 05:45 Total Protein 4.3 gm/dL (6.0-8.3) L 03/23/16 05:45 Albumin < 1.5 gm/dL (4.2-5.5) L 03/23/16 05:45 Globulin 2.8 gm/dL 03/23/16 05:45 Albumin/Globulin Ratio 0.5 (1.0-1.8) L 03/23/16 05:45 Prealbumin 4 mg/dL (10-36) L 03/23/16 06:00 Triglycerides 44 mg/dL (<150) 03/23/16 05:45 Cholesterol 37 mg/dL (<200) 03/23/16 05:45 Lipase 7 U/L (11-82) L 03/12/16 04:04 Carcinoembryonic Ag 39.7 ng/mL (0.0-4.7) H 03/13/16 05:33 Urine Source [place] 03/11/16 16:00 Urine Color YELLOW 03/11/16 16:00 Urine Clarity CLEAR (CLEAR) 03/11/16 16:00 Urine pH 5.5 03/11/16 16:00 Ur Specific [place] 1.015 (1.005-1.030) 03/11/16 16:00 Urine Protein 30 mg/dL (NEGATIVE) H 03/11/16 16:00 Urine Glucose (UA) NEGATIVE mg/dL (NEGATIVE) 03/11/16 16:00 Urine Ketones NEGATIVE mg/dL (NEGATIVE) 03/11/16 16:00 Urine Blood SMALL (NEGATIVE) H 03/11/16 16:00 Urine Nitrate NEGATIVE (NEGATIVE) 03/11/16 16:00 Urine Bilirubin NEGATIVE (NEGATIVE) 03/11/16 16:00 Urine Urobilinogen 0.2 E.U./dL (0.2 - 1.0) 03/11/16 16:00 Ur Leukocyte Esterase SMALL (NEGATIVE) H 03/11/16 16:00 Urine RBC 0-2 /hpf (0-5) H 03/11/16 16:00 Urine WBC 0-2 /hpf (0-5) 03/11/16 16:00 Ur Epithelial Cells RARE /lpf (FEW) 03/11/16 16:00 Urine Bacteria FEW /hpf (NONE SEEN) 03/11/16 16:00 Ur Random Sodium 31 mmol/L 03/13/16 10:10 Urine Creatinine 25.5 mg/dl (Not Estab.) 03/13/16 10:10 Urine Microalbumin 41.4 ug/mL (Not Estab.) 03/13/16 10:10 Microalb/Creat Ratio 162.4 mg/g creat (0.0-30.0) H 03/13/16 10:10 Stool Occult Blood POSITIVE (NEGATIVE) 03/13/16 10:10 Amikacin Peak 14.3 ug/mL (20.0-30.0) L 03/17/16 19:15 Amikacin Trough 4.6 ug/mL (1.0-8.0) 03/17/16 17:30 Random Vancomycin 18.4 ug/mL (5.0-40.0) 03/13/16 07:23 Blood Type O POSITIVE 03/17/16 16:10 Antibody Screen NEGATIVE 03/17/16 16:10 Crossmatch See Detail 03/17/16 16:10 - Physical Exam Vitals and I&O: Vital Signs Temp 98 F 03/26/16 03:58 Pulse 92 03/26/16 03:58 Resp 18 03/26/16 03:58 BP 93/64 03/26/16 03:58 Pulse Ox 100 03/26/16 03:58 Intake & Output 03/25/16 03/26/16 03/26/16 18:59 06:59 18:59 Intake Total 200 100 Balance 200 100 Intake: Intake, IV Amount 200 100 Meropenem 1 gm In Sodium 200 100 Chloride 0.9% 100 ml @ 100 mls/hr IV Q8H [facility] Rx# :[id number] Sodium Chloride 0.9% 1, 0 000 ml @ 95 mls/hr IV . [id number] [facility] Rx#:[id number] Other: Stool Characteristics Liquid Brown Salazar Active Medications: Current Medications Acetaminophen (Tylenol) 650 mg PO Q6H PRN PRN Reason: mild pain or temp >100.4 Stop: 05/10/16 18:36 Last Admin: 03/23/16 00:39 Dose: 650 mg Allopurinol (Zyloprim) 200 mg PO DAILY [facility] Stop: 05/12/16 09:14 Last Admin: 03/26/16 09:14 Dose: 200 mg Dextrose (D50w) 50 ml IVP PRN PRN PRN Reason: Blood Glucose less than 70 Stop: 05/22/16 01:22 Dextrose (Glutose 40%) 18.75 gm PO PRN PRN PRN Reason: Blood Glucose less than 70 Stop: 05/22/16 01:22 Glucagon (Glucagen) 1 mg IM PRN PRN PRN Reason: Blood Glucose less than 70 Stop: 05/22/16 01:22 Hydromorphone HCl (Dilaudid) 2 mg IVP Q4HR PRN PRN Reason: Abdominal Pain Stop: 05/24/16 10:05 Last Admin: 03/26/16 11:37 Dose: 2 mg Meropenem 1 gm/ Sodium (Chloride) 100 mls @ 100 mls/hr IV Q8H [facility] Stop: 05/17/16 08:59 Last Admin: 03/26/16 09:16 Dose: 100 mls/hr Multivitamins/Minerals 10 ml/Dextrose/ Amino Acids/Electrolytes/ Fat Emulsion Intravenous 1,800 mls @ 75 mls/hr IV .Q24H [facility] Stop: 05/24/16 14:59 Last Admin: 03/25/16 14:36 Dose: 75 mls/hr Sodium Chloride (Nacl 0.9%) 1,000 mls @ 95 mls/hr IV .[id number] [facility] Stop: 05/24/16 14:59 Last Admin: 03/26/16 03:54 Dose: 95 mls/hr Insulin Aspart (Novolog Insulin Sliding Scale) 0 units SUBQ ACHS [facility] PRN Reason: Protocol Stop: 05/12/16 16:29 Last Admin: 03/26/16 11:38 Dose: Not Given Lorazepam (Ativan) 0.5 mg IVP Q4HR PRN; Protocol PRN Reason: anxiety/insomnia Stop: 05/18/16 12:24 Last Admin: 03/22/16 04:24 Dose: 0.5 mg Megestrol Acetate (Megace) 400 mg PO BID [facility] PRN Reason: Protocol Stop: 05/16/16 08:59 Last Admin: 03/26/16 09:13 Dose: 400 mg Mirtazapine (Remeron) 30 mg PO HS [facility] PRN Reason: Protocol Stop: 05/16/16 20:59 Last Admin: 03/25/16 20:11 Dose: 30 mg Miscellaneous (Tpn Per Pharmacy) 1 ea [facility] PRN PRN PRN Reason: PROTOCOL Stop: 05/20/16 08:53 Morphine Sulfate (Morphine) 1 mg IVP Q2HR PRN PRN Reason: Abdominal Pain Stop: 05/24/16 11:52 Last Admin: 03/26/16 09:24 Dose: 1 mg Prochlorperazine Maleate (Compazine) 10 mg PO Q6H PRN; Protocol PRN Reason: nausea and vomiting Stop: 05/10/16 18:36 Sodium Bicarbonate (Sodium Bicarbonate) 650 mg PO BID [facility] PRN Reason: Protocol Stop: 05/12/16 16:59 Last Admin: 03/26/16 09:14 Dose: 650 mg General: Alert, No acute distress HEENT: Atraumatic, Mucous membr. moist/pink Neck: Supple, +2 carotid pulse wo bruit Cardiovascular: Regular rate, Normal S1, Normal S2 Lungs: Clear to auscultation Abdomen: Bowel sounds, Soft Extremities: no Edema Neurological: Sensation intact Skin: no Rash Assessment/Plan - Assessment Assessment: TURNER- improved ESBL E. 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 severe malnutrition disloged right PNT - Plan Plan: kidney fnc has improved Mg, PO4, Ca has improved f/u electrolytes, cbc adminisister NaHco3 monitor plts closely continue TPN, IVF family considering hospice discussed w/ Dr. Jones, no right hydronephrosis per US, no need for PNT for now corrected Ca based on albumin acceptable @ 8.7 awaiting hospice
[2016-03-26] MEDS: TPN 10%-70% CUSTOM IV SCH (14:44)
[2016-03-27] MEDS: Meropenem 1 GM in Sodium Chloride 0.9% 100 ML IV SCH ×3 (00:34→16:38)
[2016-03-27] MEDS: Morphine Sulfate 2 mg/mL 1mL Syr IVP PRN ×5 (00:35→23:47)
[2016-03-27] MEDS: HYDROmorphone 2 mg/mL 1mL Vial IVP PRN ×5 (03:03→21:34)
[2016-03-27] MEDS: Sodium Chloride 0.9% 1,000 ML IV SCH (06:22)
[2016-03-27] MEDS: INSULIN ASPART SLIDING SCALE 100 UNITS/ML UNIT SUBQ SCH ×4 (06:37→21:35)
[2016-03-27 07:44] LABS: ANION GAP 6.8 (7.0-16.0); BUN - UREA NITROGEN 26 mg/dL (7-25); BUN/CREATININE RATIO 28.9; CARBON DIOXIDE 24.1 mEq/L (21.0-31.0); CHLORIDE 107 mEq/L (98-107); CREATININE - SERUM 0.9 mg/dL (0.7-1.3); GLUCOSE 89 mg/dL (70-105); MAGNESIUM 2.3 mg/dL (1.9-2.7); PHOSPHOROUS 2.7 mg/dL (2.5-5.0); POTASSIUM SERUM 3.9 mEq/L (3.5-5.1); SODIUM SERUM 134 mEq/L (136-145)
--- NOTE | 2016-03-27 13:29 | General Progress Note ---
Subjective - Review of Systems Service Date: 03/27/16 Subjective: more alert, comfortable, verbal, eating some Objective - Results Result Diagrams: 03/24/16 07:05 03/27/16 06:30 Recent Labs: Laboratory Last Values WBC 4.0 Th/cmm (4.8-10.8) L D 03/24/16 07:05 RBC 2.76 Mil/cmm (4.30-5.70) L 03/24/16 07:05 Hgb 8.0 gm/dL (13.2-17.3) L 03/24/16 07:05 Hct 23.6 % (39.0-49.0) L* 03/24/16 07:05 MCV 85.3 fl (80-99) 03/24/16 07:05 MCH 29.1 pg (26.0-30.0) 03/24/16 07:05 MCHC Differential 34.1 pg (28.0-36.0) 03/24/16 07:05 RDW 15.6 % (11.5-20.0) 03/24/16 07:05 Plt Count 144 Th/cmm (150-400) L D 03/24/16 07:05 MPV 8.6 fl 03/24/16 07:05 Neutrophils % 88.9 % (40.0-80.0) H 03/21/16 06:45 Band Neutrophils % 5 % (0-10) 03/24/16 07:05 Lymphocytes % 5.3 % (20.0-50.0) L 03/21/16 06:45 Monocytes % 4.4 % (2.0-10.0) 03/21/16 06:45 Eosinophils % 1.2 % (0.0-5.0) 03/21/16 06:45 Basophils % 0.2 % (0.0-2.0) 03/21/16 06:45 Neutrophils (Manual) 72 % (40-80) 03/24/16 07:05 Lymphocytes 12 % (20-50) L 03/24/16 07:05 Monocytes 8 % (2-10) 03/24/16 07:05 Eosinophils 3 % (0-5) 03/24/16 07:05 Basophils 0 % (0-3) 03/13/16 07:23 Platelet Estimate DECREASED PLATELETS (NORMAL) 03/24/16 07:05 Platelet Morphology NORMAL (NORMAL) 03/24/16 07:05 Anisocytosis 1+ 03/24/16 07:05 RBC Morph Micro Appear ABNORMAL (NORMAL) 03/24/16 07:05 Eos Smear Source URINE 03/13/16 10:10 Eos Smear Total Cells NONE SEEN (NONE SEEN) 03/13/16 10:10 Plt Count 56 Th/cmm (150-400) L* 03/18/16 06:38 PT 13.7 SECONDS (9.5-11.5) H 03/18/16 06:38 INR 1.35 (0.5-1.4) 03/18/16 06:38 PTT (Actin FS) 32.3 SECONDS (26.0-38.0) 03/18/16 06:38 Fibrinogen 225.0 mg/dL (200.0-400.0) 03/18/16 06:38 D-Dimer 4020 ng/mL (100-400) H 03/18/16 06:38 Sodium 134 mEq/L (136-145) L 03/27/16 06:30 Potassium 3.9 mEq/L (3.5-5.1) 03/27/16 06:30 Chloride 107 mEq/L (98-107) 03/27/16 06:30 Carbon Dioxide 24.1 mEq/L (21.0-31.0) 03/27/16 06:30 Anion Gap 6.8 (7.0-16.0) L 03/27/16 06:30 BUN 26 mg/dL (7-25) H 03/27/16 06:30 Creatinine 0.9 mg/dL (0.7-1.3) 03/27/16 06:30 Est GFR ( Amer) > 60.0 ml/min 03/27/16 06:30 Est GFR (Non-Af Amer) > 60.0 ml/min 03/27/16 06:30 BUN/Creatinine Ratio 28.9 03/27/16 06:30 Glucose 89 mg/dL (70-105) 03/27/16 06:30 POC Glucose 112 MG/DL (70 - 105) H 03/27/16 11:32 Hemoglobin A1c % 4.9 % (4.0-6.0) 03/13/16 07:23 Plasma/Ser Osmolality 278 mOsmol/kg (275-295) 03/24/16 07:05 Whole Bld Lactic Acid 0.91 mmol/L (0.60-2.00) 03/11/16 16:00 Uric Acid 11.2 mg/dL (4.4-7.6) H 03/13/16 07:23 Calcium 7.0 mg/dL (8.6-10.3) L 03/27/16 06:30 Phosphorus 2.7 mg/dL (2.5-5.0) 03/27/16 06:30 Magnesium 2.3 mg/dL (1.9-2.7) 03/27/16 06:30 Ferritin 479 ng/mL (30-400) H 03/13/16 07:23 Total Bilirubin 0.5 mg/dL (0.3-1.0) 03/23/16 05:45 AST 15 U/L (13-39) 03/23/16 05:45 ALT 17 U/L (7-52) 03/23/16 05:45 Alkaline Phosphatase 55 U/L (34-104) 03/23/16 05:45 Total Protein 4.3 gm/dL (6.0-8.3) L 03/23/16 05:45 Albumin < 1.5 gm/dL (4.2-5.5) L 03/23/16 05:45 Globulin 2.8 gm/dL 03/23/16 05:45 Albumin/Globulin Ratio 0.5 (1.0-1.8) L 03/23/16 05:45 Prealbumin 4 mg/dL (10-36) L 03/23/16 06:00 Triglycerides 44 mg/dL (<150) 03/23/16 05:45 Cholesterol 37 mg/dL (<200) 03/23/16 05:45 Lipase 7 U/L (11-82) L 03/12/16 04:04 Carcinoembryonic Ag 39.7 ng/mL (0.0-4.7) H 03/13/16 05:33 Urine Source [place] 03/11/16 16:00 Urine Color YELLOW 03/11/16 16:00 Urine Clarity CLEAR (CLEAR) 03/11/16 16:00 Urine pH 5.5 03/11/16 16:00 Ur Specific [place] 1.015 (1.005-1.030) 03/11/16 16:00 Urine Protein 30 mg/dL (NEGATIVE) H 03/11/16 16:00 Urine Glucose (UA) NEGATIVE mg/dL (NEGATIVE) 03/11/16 16:00 Urine Ketones NEGATIVE mg/dL (NEGATIVE) 03/11/16 16:00 Urine Blood SMALL (NEGATIVE) H 03/11/16 16:00 Urine Nitrate NEGATIVE (NEGATIVE) 03/11/16 16:00 Urine Bilirubin NEGATIVE (NEGATIVE) 03/11/16 16:00 Urine Urobilinogen 0.2 E.U./dL (0.2 - 1.0) 03/11/16 16:00 Ur Leukocyte Esterase SMALL (NEGATIVE) H 03/11/16 16:00 Urine RBC 0-2 /hpf (0-5) H 03/11/16 16:00 Urine WBC 0-2 /hpf (0-5) 03/11/16 16:00 Ur Epithelial Cells RARE /lpf (FEW) 03/11/16 16:00 Urine Bacteria FEW /hpf (NONE SEEN) 03/11/16 16:00 Ur Random Sodium 31 mmol/L 03/13/16 10:10 Urine Creatinine 25.5 mg/dl (Not Estab.) 03/13/16 10:10 Urine Microalbumin 41.4 ug/mL (Not Estab.) 03/13/16 10:10 Microalb/Creat Ratio 162.4 mg/g creat (0.0-30.0) H 03/13/16 10:10 Stool Occult Blood POSITIVE (NEGATIVE) 03/13/16 10:10 Amikacin Peak 14.3 ug/mL (20.0-30.0) L 03/17/16 19:15 Amikacin Trough 4.6 ug/mL (1.0-8.0) 03/17/16 17:30 Random Vancomycin 18.4 ug/mL (5.0-40.0) 03/13/16 07:23 Blood Type O POSITIVE 03/17/16 16:10 Antibody Screen NEGATIVE 03/17/16 16:10 Crossmatch See Detail 03/17/16 16:10 - Physical Exam Vitals and I&O: Vital Signs Temp 97.3 F 03/27/16 12:00 Pulse 96 03/27/16 12:00 Resp 17 03/27/16 12:00 BP 99/60 01/13/17 12:00 Pulse Ox 100 03/27/16 12:00 Intake & Output 03/26/16 03/27/16 03/27/16 18:59 06:59 18:59 Intake Total 2900 1200 Balance 2900 1200 Intake: Intake, IV Amount 2900 1200 Meropenem 1 gm In Sodium 100 200 Chloride 0.9% 100 ml @ 100 mls/hr IV Q8H [facility] Rx# :[id number] Multivitamin Inj 10 ml In 1800 Dextrose 70% 1,073 ml In Amino Acids 10% 667 ml In Intralipids 20% 50 ml @ 75 mls/hr IV .Q24H [facility] Rx#:[id number] Sodium Chloride 0.9% 1, 1000 1000 000 ml @ 95 mls/hr IV . [id number] [facility] Rx#:[id number] Other: Stool Characteristics Liquid Liquid Soft Brown Brown Liquid Salazar Salazar Brown Active Medications: Current Medications Acetaminophen (Tylenol) 650 mg PO Q6H PRN PRN Reason: mild pain or temp >100.4 Stop: 05/10/16 18:36 Last Admin: 03/23/16 00:39 Dose: 650 mg Allopurinol (Zyloprim) 200 mg PO DAILY [facility] Stop: 05/12/16 09:14 Last Admin: 03/27/16 08:33 Dose: 200 mg Dextrose (D50w) 50 ml IVP PRN PRN PRN Reason: Blood Glucose less than 70 Stop: 05/22/16 01:22 Dextrose (Glutose 40%) 18.75 gm PO PRN PRN PRN Reason: Blood Glucose less than 70 Stop: 05/22/16 01:22 Glucagon (Glucagen) 1 mg IM PRN PRN PRN Reason: Blood Glucose less than 70 Stop: 05/22/16 01:22 Hydromorphone HCl (Dilaudid) 2 mg IVP Q4HR PRN PRN Reason: Abdominal Pain Stop: 05/24/16 10:05 Last Admin: 03/27/16 08:27 Dose: 2 mg Meropenem 1 gm/ Sodium (Chloride) 100 mls @ 100 mls/hr IV Q8H [facility] Stop: 05/17/16 08:59 Last Admin: 03/27/16 08:36 Dose: 100 mls/hr Multivitamins/Minerals 10 ml/Dextrose/ Amino Acids/Electrolytes/ Fat Emulsion Intravenous 1,800 mls @ 75 mls/hr IV .Q24H [facility] Stop: 05/24/16 14:59 Last Admin: 03/26/16 14:44 Dose: 75 mls/hr Sodium Chloride (Nacl 0.9%) 1,000 mls @ 95 mls/hr IV .[id number] [facility] Stop: 05/24/16 14:59 Last Admin: 03/27/16 06:22 Dose: 95 mls/hr Insulin Aspart (Novolog Insulin Sliding Scale) 0 units SUBQ ACHS [place] PRN Reason: Protocol Stop: 05/12/16 16:29 Last Admin: 03/27/16 11:33 Dose: Not Given Megestrol Acetate (Megace) 400 mg PO BID [facility] PRN Reason: Protocol Stop: 05/16/16 08:59 Last Admin: 03/27/16 08:32 Dose: 400 mg Mirtazapine (Remeron) 30 mg PO HS [facility] PRN Reason: Protocol Stop: 05/16/16 20:59 Last Admin: 03/26/16 20:14 Dose: 30 mg Miscellaneous (Tpn Per Pharmacy) 1 ea MC PRN PRN PRN Reason: PROTOCOL Stop: 05/20/16 08:53 Morphine Sulfate (Morphine) 1 mg IVP Q2HR PRN PRN Reason: Abdominal Pain Stop: 05/24/16 11:52 Last Admin: 03/27/16 10:53 Dose: 1 mg Prochlorperazine Maleate (Compazine) 10 mg PO Q6H PRN; Protocol PRN Reason: nausea and vomiting Stop: 05/10/16 18:36 Sodium Bicarbonate (Sodium Bicarbonate) 650 mg PO BID [facility] PRN Reason: Protocol Stop: 05/12/16 16:59 Last Admin: 03/27/16 08:34 Dose: 650 mg General: Alert, No acute distress HEENT: Atraumatic, Mucous membr. moist/pink Neck: Supple, +2 carotid pulse wo bruit Cardiovascular: Regular rate, Normal S1, Normal S2 Lungs: Clear to auscultation Abdomen: Soft Extremities: no Edema Neurological: Sensation intact Skin: no Rash Assessment/Plan - Assessment Assessment: TURNER- improved ESBL E. 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 severe malnutrition disloged right PNT - Plan Plan: kidney fnc has improved Mg, PO4, Ca has improved f/u electrolytes, cbc adminisister NaHco3 monitor plts closely continue TPN, IVF family considering hospice discussed w/ Dr. Jones, no right hydronephrosis per US, no need for PNT for now corrected Ca based on albumin acceptable @ 8.7 awaiting hospice
[2016-03-27] MEDS: TPN 10%-70% CUSTOM IV SCH (18:00)
--- NOTE | 2016-03-27 21:48 | Discharge Summary ---
ADMITTING DIAGNOSES: 1. Abdominal pain, large abdominal abscess with possible enterocutaneous fistula formation. 2. Azotemia/renal insufficiency. 3. Hyponatremia. 4. History of colon cancer with metastasis, status post partial resection with colostomy placement. 5. History of nephrostomy tube secondary to bilateral ureteral stenosis. 6. Fjodx-ue-qwvzpuw anemia. DISCHARGE DIAGNOSES: 1. Extended spectrum beta-lactamase urinary tract infection. 2. Abdominal wall cellulitis with possible abscess and fistula formation. 3. Pelvic mass. 4. History of metastatic colon cancer. 5. Severe malnutrition. 6. Ureteral stenosis status post nephrostomy tube. 7. Hboao-et-vejgvhh anemia, improved. 8. Severe malnutrition, on TPN. 9. Dzcrv-ce-heheyer weakness/debility. CONSULTANTS: Dr. Cote, General Surgery; ID, Dr. Ghulam Gonzalez; Dr. Leonard Rogel, Nephrology. MAJOR PROCEDURES: There was an abdominal ultrasound done on 03/12/2016, impression suboptimal limited exam suggestion of heterogeneous densities/mass in the mid abdomen, margins cannot be evaluated. There was a CT of the abdomen and pelvis done on 03/13/2016, again showing a very limited suboptimal exam due to marked paucity of intraabdominal fat and absence of contrast, poor delineation noted. There was a repeat of the abdominal pelvic exam on 03/17/2016, showing there was an approximately 3.1 cm round hypodense focus in the right lobe with a small focus of hyperdensity that might be related to calcification noted on her exam. Etiology is uncertain. Abscess formation cannot be excluded. The spleen appears to be normal. There is increased ascites throughout the abdomen and pelvis since the prior study. Bilateral nephrostomy tubes are seen. No focal abnormalities seen in the region of the pancreas. There is an approximate 6cm defect along the anterior wall with protrusion of bowel into the subcutaneous tissue. No dilation noted. There was a small bowel x-ray done on 03/18/2016 showing no evidence of small-bowel obstruction. No contrast extravasation and focal accumulation of the contrast over the right abdomen consistent with patient's history of ostomy bag. DISCHARGE MEDICATIONS: Tylenol 650 q. 6 p.r.n. for mild pain, allopurinol 200 mg every day, dextrose oral gel p.r.n. for glucose less than 70, glucagon 1 mg IM p.r.n. for glucose less than 70, Dilaudid 2 mg every q.4 p.r.n. for severe pain, insulin sliding scale per protocol, Ativan 0.5 IV push q.4 p.r.n. for insomnia or anxiety. Megace 10 mg b.i.d., meropenem 1 gram q.8 hours IV, mirtazapine 30 at bedtime, morphine sulfate 1 gram every 2 hours p.r.n. for moderate to severe abdominal pain, Compazine 10 mg q. 6 for nausea, vomiting, bicarbonate 650 b.i.d. He is on NS at 95 mL per hour and TPN per pharmacy. BRIEF HOSPITAL COURSE: This is a 55-year-old, unfortunate gentleman who apparently was diagnosed with cancer about a year ago, who underwent partial resection and colostomy at [facility]. He has been residing at [facility] under the care of Dr. Montemayor, and was transferred secondary to abdominal pain and abdominal wall redness, swelling and pain. He apparently also had discharge noted that was coming in from the ostomy bag. The patient denied any fever or chills, but again complained of severe pain. His H and H were noted to be 7/21 and sodium level of 122 with a BUN 99, creatinine 2.9. He was admitted to telemetry for further management and care. He is a DNR level 2. The patient was placed on broad-spectrum antibiotics and a surgical consult was placed for possible I and D of abscess. CT of the abdomen was ordered to further assess the possible abscess in fistula. He was noted to have a pelvic mass, but the patient did remain stable with IV fluids and IV antibiotics. His renal function did improve as well as his H and H by 03/13/2016. He was transfused 2 units of PRBC with a followup H and H of 01/11 and his BUN and creatinine were noted to be 75/1.9 by 03/14/2016. Medical records were tried to obtain from [facility] as well as [facility] where the patient has had procedures including his resection in the past, but these were never obtained. The patient was also placed on TPN via PICC line, which was placed within the first couple of days of his admission. This was done giving his severe cachexia and poor p.o. intake. The patient's H and H were noted to be low again by 03/17/2016 with a level of 7/22 and was transfused again 1 unit of PRBC with improvement of his symptomatology. Urine cultures yielded ESBL E. coli UTI for which he has been receiving meropenem. His pain medications have been increased accordingly given his chronic pain symptomatology. web services manager and social security specialist were able to discuss the case with his family, i.e., mother who agreed to hospice care. The patient again has remained somewhat stable since admission with improvement of his redness in the abdominal wall. His renal function has become normal and his white count also is much improved. Pt eventually was evaluated and enrolled with [facility] hospice and was transferred under their service to SNF. CONDITION ON DISCHARGE: Stable. DISPOSITION: The patient will be discharged to SNF under hospice care hospice. JOB# [id number]
--- NOTE | 2016-03-27 23:52 | Infectious Disease Prog Note ---
Infectious Disease Subjective - Review of Systems Service Date: 03/27/16 Subjective: There is no new change. No fever. Very cachectic. Infectious Disease Objective - Results Result Diagrams: 03/24/16 07:05 03/27/16 06:30 Recent Labs: Laboratory Last Values WBC 4.0 Th/cmm (4.8-10.8) L D 03/24/16 07:05 RBC 2.76 Mil/cmm (4.30-5.70) L 03/24/16 07:05 Hgb 8.0 gm/dL (13.2-17.3) L 03/24/16 07:05 Hct 23.6 % (39.0-49.0) L* 03/24/16 07:05 MCV 85.3 fl (80-99) 03/24/16 07:05 MCH 29.1 pg (26.0-30.0) 03/24/16 07:05 MCHC Differential 34.1 pg (28.0-36.0) 03/24/16 07:05 RDW 15.6 % (11.5-20.0) 03/24/16 07:05 Plt Count 144 Th/cmm (150-400) L D 03/24/16 07:05 MPV 8.6 fl 03/24/16 07:05 Neutrophils % 88.9 % (40.0-80.0) H 03/21/16 06:45 Band Neutrophils % 5 % (0-10) 03/24/16 07:05 Lymphocytes % 5.3 % (20.0-50.0) L 03/21/16 06:45 Monocytes % 4.4 % (2.0-10.0) 03/21/16 06:45 Eosinophils % 1.2 % (0.0-5.0) 03/21/16 06:45 Basophils % 0.2 % (0.0-2.0) 03/21/16 06:45 Neutrophils (Manual) 72 % (40-80) 03/24/16 07:05 Lymphocytes 12 % (20-50) L 03/24/16 07:05 Monocytes 8 % (2-10) 03/24/16 07:05 Eosinophils 3 % (0-5) 03/24/16 07:05 Basophils 0 % (0-3) 03/13/16 07:23 Platelet Estimate DECREASED PLATELETS (NORMAL) 03/24/16 07:05 Platelet Morphology NORMAL (NORMAL) 03/24/16 07:05 Anisocytosis 1+ 03/24/16 07:05 RBC Morph Micro Appear ABNORMAL (NORMAL) 03/24/16 07:05 Eos Smear Source URINE 03/13/16 10:10 Eos Smear Total Cells NONE SEEN (NONE SEEN) 03/13/16 10:10 Plt Count 56 Th/cmm (150-400) L* 03/18/16 06:38 PT 13.7 SECONDS (9.5-11.5) H 03/18/16 06:38 INR 1.35 (0.5-1.4) 03/18/16 06:38 PTT (Actin FS) 32.3 SECONDS (26.0-38.0) 03/18/16 06:38 Fibrinogen 225.0 mg/dL (200.0-400.0) 03/18/16 06:38 D-Dimer 4020 ng/mL (100-400) H 03/18/16 06:38 Sodium 134 mEq/L (136-145) L 03/27/16 06:30 Potassium 3.9 mEq/L (3.5-5.1) 03/27/16 06:30 Chloride 107 mEq/L (98-107) 03/27/16 06:30 Carbon Dioxide 24.1 mEq/L (21.0-31.0) 03/27/16 06:30 Anion Gap 6.8 (7.0-16.0) L 03/27/16 06:30 BUN 26 mg/dL (7-25) H 03/27/16 06:30 Creatinine 0.9 mg/dL (0.7-1.3) 03/27/16 06:30 Est GFR ( Amer) > 60.0 ml/min 03/27/16 06:30 Est GFR (Non-Af Amer) > 60.0 ml/min 03/27/16 06:30 BUN/Creatinine Ratio 28.9 03/27/16 06:30 Glucose 89 mg/dL (70-105) 03/27/16 06:30 POC Glucose 136 MG/DL (70 - 105) H 03/27/16 21:30 Hemoglobin A1c % 4.9 % (4.0-6.0) 03/13/16 07:23 Plasma/Ser Osmolality 278 mOsmol/kg (275-295) 03/24/16 07:05 Whole Bld Lactic Acid 0.91 mmol/L (0.60-2.00) 03/11/16 16:00 Uric Acid 11.2 mg/dL (4.4-7.6) H 03/13/16 07:23 Calcium 7.0 mg/dL (8.6-10.3) L 03/27/16 06:30 Phosphorus 2.7 mg/dL (2.5-5.0) 03/27/16 06:30 Magnesium 2.3 mg/dL (1.9-2.7) 03/27/16 06:30 Ferritin 479 ng/mL (30-400) H 03/13/16 07:23 Total Bilirubin 0.5 mg/dL (0.3-1.0) 03/23/16 05:45 AST 15 U/L (13-39) 03/23/16 05:45 ALT 17 U/L (7-52) 03/23/16 05:45 Alkaline Phosphatase 55 U/L (34-104) 03/23/16 05:45 Total Protein 4.3 gm/dL (6.0-8.3) L 03/23/16 05:45 Albumin < 1.5 gm/dL (4.2-5.5) L 03/23/16 05:45 Globulin 2.8 gm/dL 03/23/16 05:45 Albumin/Globulin Ratio 0.5 (1.0-1.8) L 03/23/16 05:45 Prealbumin 4 mg/dL (10-36) L 03/23/16 06:00 Triglycerides 44 mg/dL (<150) 03/23/16 05:45 Cholesterol 37 mg/dL (<200) 03/23/16 05:45 Lipase 7 U/L (11-82) L 03/12/16 04:04 Carcinoembryonic Ag 39.7 ng/mL (0.0-4.7) H 03/13/16 05:33 Urine Source [place] 03/11/16 16:00 Urine Color YELLOW 03/11/16 16:00 Urine Clarity CLEAR (CLEAR) 03/11/16 16:00 Urine pH 5.5 03/11/16 16:00 Ur Specific [place] 1.015 (1.005-1.030) 03/11/16 16:00 Urine Protein 30 mg/dL (NEGATIVE) H 03/11/16 16:00 Urine Glucose (UA) NEGATIVE mg/dL (NEGATIVE) 03/11/16 16:00 Urine Ketones NEGATIVE mg/dL (NEGATIVE) 03/11/16 16:00 Urine Blood SMALL (NEGATIVE) H 03/11/16 16:00 Urine Nitrate NEGATIVE (NEGATIVE) 03/11/16 16:00 Urine Bilirubin NEGATIVE (NEGATIVE) 03/11/16 16:00 Urine Urobilinogen 0.2 E.U./dL (0.2 - 1.0) 03/11/16 16:00 Ur Leukocyte Esterase SMALL (NEGATIVE) H 03/11/16 16:00 Urine RBC 0-2 /hpf (0-5) H 03/11/16 16:00 Urine WBC 0-2 /hpf (0-5) 03/11/16 16:00 Ur Epithelial Cells RARE /lpf (FEW) 03/11/16 16:00 Urine Bacteria FEW /hpf (NONE SEEN) 03/11/16 16:00 Ur Random Sodium 31 mmol/L 03/13/16 10:10 Urine Creatinine 25.5 mg/dl (Not Estab.) 03/13/16 10:10 Urine Microalbumin 41.4 ug/mL (Not Estab.) 03/13/16 10:10 Microalb/Creat Ratio 162.4 mg/g creat (0.0-30.0) H 03/13/16 10:10 Stool Occult Blood POSITIVE (NEGATIVE) 03/13/16 10:10 Amikacin Peak 14.3 ug/mL (20.0-30.0) L 03/17/16 19:15 Amikacin Trough 4.6 ug/mL (1.0-8.0) 03/17/16 17:30 Random Vancomycin 18.4 ug/mL (5.0-40.0) 03/13/16 07:23 Blood Type O POSITIVE 03/17/16 16:10 Antibody Screen NEGATIVE 03/17/16 16:10 Crossmatch See Detail 03/17/16 16:10 - Physical Exam Vitals and I&O: Vital Signs Temp 99.7 F 03/27/16 20:00 Pulse 90 03/27/16 20:00 Resp 19 03/27/16 20:00 BP 92/60 03/27/16 20:00 Pulse Ox 97 03/27/16 20:00 Intake & Output 03/27/16 03/27/16 03/28/16 06:59 18:59 06:59 Intake Total 1200 1950 Output Total 800 Balance 1200 1150 Intake: Intake, IV Amount 1200 1900 Meropenem 1 gm In Sodium 200 100 Chloride 0.9% 100 ml @ 100 mls/hr IV Q8H [facility] Rx# :[id number] Multivitamin Inj 10 ml In 1800 Dextrose 70% 1,073 ml In Amino Acids 10% 667 ml In Intralipids 20% 50 ml @ 75 mls/hr IV .Q24H [facility] Rx#:[id number] Sodium Chloride 0.9% 1, 1000 000 ml @ 95 mls/hr IV . [id number] [facility] Rx#:[id number] Oral 50 Output: Urine 800 Other: # Voids 1 # Bowel Movements 1 Stool Characteristics Liquid Soft Brown Liquid Salazar Brown Active Medications: Current Medications Acetaminophen (Tylenol) 650 mg PO Q6H PRN PRN Reason: mild pain or temp >100.4 Stop: 05/10/16 18:36 Last Admin: 03/23/16 00:39 Dose: 650 mg Allopurinol (Zyloprim) 200 mg PO DAILY [facility] Stop: 05/12/16 09:14 Last Admin: 03/27/16 08:33 Dose: 200 mg Dextrose (D50w) 50 ml IVP PRN PRN PRN Reason: Blood Glucose less than 70 Stop: 05/22/16 01:22 Dextrose (Glutose 40%) 18.75 gm PO PRN PRN PRN Reason: Blood Glucose less than 70 Stop: 05/22/16 01:22 Glucagon (Glucagen) 1 mg IM PRN PRN PRN Reason: Blood Glucose less than 70 Stop: 05/22/16 01:22 Hydromorphone HCl (Dilaudid) 2 mg IVP Q4HR PRN PRN Reason: Abdominal Pain Stop: 05/24/16 10:05 Last Admin: 03/27/16 21:34 Dose: 2 mg Meropenem 1 gm/ Sodium (Chloride) 100 mls @ 100 mls/hr IV Q8H [facility] Stop: 05/17/16 08:59 Last Admin: 03/27/16 16:38 Dose: 100 mls/hr Multivitamins/Minerals 10 ml/Dextrose/ Amino Acids/Electrolytes/ Fat Emulsion Intravenous 1,800 mls @ 75 mls/hr IV .Q24H [facility] Stop: 05/24/16 14:59 Last Admin: 03/27/16 18:00 Dose: 75 mls/hr Sodium Chloride (Nacl 0.9%) 1,000 mls @ 95 mls/hr IV .[id number] [facility] Stop: 05/24/16 14:59 Last Admin: 03/27/16 06:22 Dose: 95 mls/hr Insulin Aspart (Novolog Insulin Sliding Scale) 0 units SUBQ ACHS [facility] PRN Reason: Protocol Stop: 05/12/16 16:29 Last Admin: 03/27/16 21:35 Dose: Not Given Megestrol Acetate (Megace) 400 mg PO BID [facility] PRN Reason: Protocol Stop: 05/16/16 08:59 Last Admin: 03/27/16 16:39 Dose: 400 mg Mirtazapine (Remeron) 30 mg PO HS [facility] PRN Reason: Protocol Stop: 05/16/16 20:59 Last Admin: 03/27/16 21:34 Dose: 30 mg Miscellaneous (Tpn Per Pharmacy) 1 ea MC PRN PRN PRN Reason: PROTOCOL Stop: 05/20/16 08:53 Morphine Sulfate (Morphine) 1 mg IVP Q2HR PRN PRN Reason: Abdominal Pain Stop: 05/24/16 11:52 Last Admin: 03/27/16 16:34 Dose: 1 mg Prochlorperazine Maleate (Compazine) 10 mg PO Q6H PRN; Protocol PRN Reason: nausea and vomiting Stop: 05/10/16 18:36 Sodium Bicarbonate (Sodium Bicarbonate) 650 mg PO BID [facility] PRN Reason: Protocol Stop: 05/12/16 16:59 Last Admin: 03/27/16 16:40 Dose: 650 mg General: no acute distress, cachectic HEENT: atraumatic, normocephalic, PERRLA, EOMI Neck: supple, no thyromegaly Cardiovascular: S1S2, regular Lungs: clear to auscultation bilaterally, clear to percussion Abdomen: soft, tender, other (colostomy, urostomy, nephrostomy.), no distended Extremities: no cyanosis, no clubbing, no edema Neurological: awake, alert, oriented Infectious Disease Assmt/Plan - Assessment Assessment: 1. UTi - ESBL e coli. 2. Pelvic mass, likely CA, abscess was also suuspected. 3. Liver mass, mets versus abscess. ? biopsy may be considered. 4. Nephrostomy b/l. 5. cachexia. 6. Colon ca with mets. - Plan Plan: Continue meropenem. Hospice eval in process.
[2016-03-28] MEDS: HYDROmorphone 2 mg/mL 1mL Vial IVP PRN ×8 (01:01→22:20)
[2016-03-28] MEDS: Meropenem 1 GM in Sodium Chloride 0.9% 100 ML IV SCH ×3 (01:06→18:24)
[2016-03-28 05:22] LABS: ANION GAP 3.5 (7.0-16.0); BUN - UREA NITROGEN 27 mg/dL (7-25); BUN/CREATININE RATIO 33.8; CARBON DIOXIDE 26.2 mEq/L (21.0-31.0); CHLORIDE 107 mEq/L (98-107); CREATININE - SERUM 0.8 mg/dL (0.7-1.3); GLUCOSE 106 mg/dL (70-105); POTASSIUM SERUM 3.7 mEq/L (3.5-5.1); SODIUM SERUM 133 mEq/L (136-145)
[2016-03-28] MEDS: Morphine Sulfate 2 mg/mL 1mL Syr IVP PRN ×3 (05:54→21:25)
[2016-03-28] MEDS: INSULIN ASPART SLIDING SCALE 100 UNITS/ML UNIT SUBQ SCH ×4 (06:56→21:30)
[2016-03-28] MEDS: Sodium Chloride 0.9% 1,000 ML IV SCH ×4 (08:12→18:12)
[2016-03-28] MEDS ORDERED: SODIUM PHOSPHATE IV ONE (09:30)
[2016-03-28] MEDS ORDERED: DEXTROSE IV ONE (09:30)
[2016-03-28] MEDS ORDERED: Potassium Phosphate 20 MMOLE in Sodium Chloride 0.9% 250 ML IV ONE (10:00)
--- NOTE | 2016-03-28 10:00 | General Progress Note ---
Subjective - Review of Systems Service Date: 03/28/16 Subjective: more alert, comfortable, verbal, eating some Objective - Results Result Diagrams: 03/24/16 07:05 03/28/16 04:45 Recent Labs: Laboratory Last Values WBC 4.0 Th/cmm (4.8-10.8) L D 03/24/16 07:05 RBC 2.76 Mil/cmm (4.30-5.70) L 03/24/16 07:05 Hgb 8.0 gm/dL (13.2-17.3) L 03/24/16 07:05 Hct 23.6 % (39.0-49.0) L* 03/24/16 07:05 MCV 85.3 fl (80-99) 03/24/16 07:05 MCH 29.1 pg (26.0-30.0) 03/24/16 07:05 MCHC Differential 34.1 pg (28.0-36.0) 03/24/16 07:05 RDW 15.6 % (11.5-20.0) 03/24/16 07:05 Plt Count 144 Th/cmm (150-400) L D 03/24/16 07:05 MPV 8.6 fl 03/24/16 07:05 Neutrophils % 88.9 % (40.0-80.0) H 03/21/16 06:45 Band Neutrophils % 5 % (0-10) 03/24/16 07:05 Lymphocytes % 5.3 % (20.0-50.0) L 03/21/16 06:45 Monocytes % 4.4 % (2.0-10.0) 03/21/16 06:45 Eosinophils % 1.2 % (0.0-5.0) 03/21/16 06:45 Basophils % 0.2 % (0.0-2.0) 03/21/16 06:45 Neutrophils (Manual) 72 % (40-80) 03/24/16 07:05 Lymphocytes 12 % (20-50) L 03/24/16 07:05 Monocytes 8 % (2-10) 03/24/16 07:05 Eosinophils 3 % (0-5) 03/24/16 07:05 Basophils 0 % (0-3) 03/13/16 07:23 Platelet Estimate DECREASED PLATELETS (NORMAL) 03/24/16 07:05 Platelet Morphology NORMAL (NORMAL) 03/24/16 07:05 Anisocytosis 1+ 03/24/16 07:05 RBC Morph Micro Appear ABNORMAL (NORMAL) 03/24/16 07:05 Eos Smear Source URINE 03/13/16 10:10 Eos Smear Total Cells NONE SEEN (NONE SEEN) 03/13/16 10:10 Plt Count 56 Th/cmm (150-400) L* 03/18/16 06:38 PT 13.7 SECONDS (9.5-11.5) H 03/18/16 06:38 INR 1.35 (0.5-1.4) 03/18/16 06:38 PTT (Actin FS) 32.3 SECONDS (26.0-38.0) 03/18/16 06:38 Fibrinogen 225.0 mg/dL (200.0-400.0) 03/18/16 06:38 D-Dimer 4020 ng/mL (100-400) H 03/18/16 06:38 Sodium 133 mEq/L (136-145) L 03/28/16 04:45 Potassium 3.7 mEq/L (3.5-5.1) 03/28/16 04:45 Chloride 107 mEq/L (98-107) 03/28/16 04:45 Carbon Dioxide 26.2 mEq/L (21.0-31.0) 03/28/16 04:45 Anion Gap 3.5 (7.0-16.0) L 03/28/16 04:45 BUN 27 mg/dL (7-25) H 03/28/16 04:45 Creatinine 0.8 mg/dL (0.7-1.3) 03/28/16 04:45 Est GFR ( Amer) > 60.0 ml/min 03/28/16 04:45 Est GFR (Non-Af Amer) > 60.0 ml/min 03/28/16 04:45 BUN/Creatinine Ratio 33.8 03/28/16 04:45 Glucose 106 mg/dL (70-105) H 03/28/16 04:45 POC Glucose 95 MG/DL (70 - 105) 03/28/16 06:55 Hemoglobin A1c % 4.9 % (4.0-6.0) 03/13/16 07:23 Plasma/Ser Osmolality 278 mOsmol/kg (275-295) 03/24/16 07:05 Whole Bld Lactic Acid 0.91 mmol/L (0.60-2.00) 03/11/16 16:00 Uric Acid 11.2 mg/dL (4.4-7.6) H 03/13/16 07:23 Calcium 7.0 mg/dL (8.6-10.3) L 03/28/16 04:45 Phosphorus 2.4 mg/dL (2.5-5.0) L 03/28/16 04:45 Magnesium 2.3 mg/dL (1.9-2.7) 03/28/16 04:45 Ferritin 479 ng/mL (30-400) H 03/13/16 07:23 Total Bilirubin 0.5 mg/dL (0.3-1.0) 03/23/16 05:45 AST 15 U/L (13-39) 03/23/16 05:45 ALT 17 U/L (7-52) 03/23/16 05:45 Alkaline Phosphatase 55 U/L (34-104) 03/23/16 05:45 Total Protein 4.3 gm/dL (6.0-8.3) L 03/23/16 05:45 Albumin < 1.5 gm/dL (4.2-5.5) L 03/23/16 05:45 Globulin 2.8 gm/dL 03/23/16 05:45 Albumin/Globulin Ratio 0.5 (1.0-1.8) L 03/23/16 05:45 Prealbumin 4 mg/dL (10-36) L 03/23/16 06:00 Triglycerides 44 mg/dL (<150) 03/23/16 05:45 Cholesterol 37 mg/dL (<200) 03/23/16 05:45 Lipase 7 U/L (11-82) L 03/12/16 04:04 Carcinoembryonic Ag 39.7 ng/mL (0.0-4.7) H 03/13/16 05:33 Urine Source [place] 03/11/16 16:00 Urine Color YELLOW 03/11/16 16:00 Urine Clarity CLEAR (CLEAR) 03/11/16 16:00 Urine pH 5.5 03/11/16 16:00 Ur Specific [place] 1.015 (1.005-1.030) 03/11/16 16:00 Urine Protein 30 mg/dL (NEGATIVE) H 03/11/16 16:00 Urine Glucose (UA) NEGATIVE mg/dL (NEGATIVE) 03/11/16 16:00 Urine Ketones NEGATIVE mg/dL (NEGATIVE) 03/11/16 16:00 Urine Blood SMALL (NEGATIVE) H 03/11/16 16:00 Urine Nitrate NEGATIVE (NEGATIVE) 03/11/16 16:00 Urine Bilirubin NEGATIVE (NEGATIVE) 03/11/16 16:00 Urine Urobilinogen 0.2 E.U./dL (0.2 - 1.0) 03/11/16 16:00 Ur Leukocyte Esterase SMALL (NEGATIVE) H 03/11/16 16:00 Urine RBC 0-2 /hpf (0-5) H 03/11/16 16:00 Urine WBC 0-2 /hpf (0-5) 03/11/16 16:00 Ur Epithelial Cells RARE /lpf (FEW) 03/11/16 16:00 Urine Bacteria FEW /hpf (NONE SEEN) 03/11/16 16:00 Ur Random Sodium 31 mmol/L 03/13/16 10:10 Urine Creatinine 25.5 mg/dl (Not Estab.) 03/13/16 10:10 Urine Microalbumin 41.4 ug/mL (Not Estab.) 03/13/16 10:10 Microalb/Creat Ratio 162.4 mg/g creat (0.0-30.0) H 03/13/16 10:10 Stool Occult Blood POSITIVE (NEGATIVE) 03/13/16 10:10 Amikacin Peak 14.3 ug/mL (20.0-30.0) L 03/17/16 19:15 Amikacin Trough 4.6 ug/mL (1.0-8.0) 03/17/16 17:30 Random Vancomycin 18.4 ug/mL (5.0-40.0) 03/13/16 07:23 Blood Type O POSITIVE 03/17/16 16:10 Antibody Screen NEGATIVE 03/17/16 16:10 Crossmatch See Detail 03/17/16 16:10 - Physical Exam Vitals and I&O: Vital Signs Temp 99.0 F 03/28/16 03:54 Pulse 94 03/28/16 03:54 Resp 18 03/28/16 03:54 BP 98/64 03/28/16 03:54 Pulse Ox 98 03/28/16 03:54 Intake & Output 03/27/16 03/28/16 03/28/16 18:59 06:59 18:59 Intake Total 3050 450 Output Total 800 1130 Balance 2250 -680 Intake: Intake, IV Amount 3000 100 Meropenem 1 gm In Sodium 200 100 Chloride 0.9% 100 ml @ 100 mls/hr IV Q8H [facility] Rx# :[id number] Multivitamin Inj 10 ml In 1800 Dextrose 70% 1,073 ml In Amino Acids 10% 667 ml In Intralipids 20% 50 ml @ 75 mls/hr IV .Q24H [facility] Rx#:[id number] Sodium Chloride 0.9% 1, 1000 000 ml @ 95 mls/hr IV . [id number] [facility] Rx#:[id number] Oral 50 350 Output: Urine 800 880 Stool 250 Other: # Voids 1 # Bowel Movements 1 Stool Characteristics Soft Soft Liquid Liquid Brown Brown Active Medications: Current Medications Acetaminophen (Tylenol) 650 mg PO Q6H PRN PRN Reason: mild pain or temp >100.4 Stop: 05/10/16 18:36 Last Admin: 03/27/16 23:45 Dose: 650 mg Allopurinol (Zyloprim) 200 mg PO DAILY [facility] Stop: 05/12/16 09:14 Last Admin: 03/28/16 09:37 Dose: 200 mg Dextrose (D50w) 50 ml IVP PRN PRN PRN Reason: Blood Glucose less than 70 Stop: 05/22/16 01:22 Dextrose (Glutose 40%) 18.75 gm PO PRN PRN PRN Reason: Blood Glucose less than 70 Stop: 05/22/16 01:22 Glucagon (Glucagen) 1 mg IM PRN PRN PRN Reason: Blood Glucose less than 70 Stop: 05/22/16 01:22 Hydromorphone HCl (Dilaudid) 2 mg IVP Q4HR PRN PRN Reason: Abdominal Pain Stop: 05/24/16 10:05 Last Admin: 03/28/16 08:30 Dose: 2 mg Meropenem 1 gm/ Sodium (Chloride) 100 mls @ 100 mls/hr IV Q8H [facility] Stop: 05/17/16 08:59 Last Admin: 03/28/16 08:30 Dose: 100 mls/hr Multivitamins/Minerals 10 ml/Dextrose/ Amino Acids/Electrolytes/ Fat Emulsion Intravenous 1,800 mls @ 75 mls/hr IV .Q24H [facility] Stop: 05/24/16 14:59 Last Admin: 03/27/16 18:00 Dose: 75 mls/hr Sodium Chloride (Nacl 0.9%) 1,000 mls @ 95 mls/hr IV .[id number] [facility] Stop: 05/24/16 14:59 Last Admin: 03/28/16 09:37 Dose: 95 mls/hr Sodium Phosphate 20 mmole/ (Dextrose) 256.6667 mls @ 62 mls/hr IV Q4H [facility] Stop: 03/28/16 13:38 Insulin Aspart (Novolog Insulin Sliding Scale) 0 units SUBQ ACHS [facility] PRN Reason: Protocol Stop: 05/12/16 16:29 Last Admin: 03/28/16 06:56 Dose: Not Given Megestrol Acetate (Megace) 400 mg PO BID [facility] PRN Reason: Protocol Stop: 05/16/16 08:59 Last Admin: 03/28/16 09:37 Dose: 400 mg Mirtazapine (Remeron) 30 mg PO HS [facility] PRN Reason: Protocol Stop: 05/16/16 20:59 Last Admin: 03/27/16 21:34 Dose: 30 mg Miscellaneous (Tpn Per Pharmacy) 1 ea [facility] PRN PRN PRN Reason: PROTOCOL Stop: 05/20/16 08:53 Morphine Sulfate (Morphine) 1 mg IVP Q2HR PRN PRN Reason: Abdominal Pain Stop: 05/24/16 11:52 Last Admin: 03/28/16 05:54 Dose: 1 mg Prochlorperazine Maleate (Compazine) 10 mg PO Q6H PRN; Protocol PRN Reason: nausea and vomiting Stop: 05/10/16 18:36 Sodium Bicarbonate (Sodium Bicarbonate) 650 mg PO BID [facility] PRN Reason: Protocol Stop: 05/12/16 16:59 Last Admin: 03/28/16 09:37 Dose: 650 mg General: Alert, No acute distress HEENT: Atraumatic, Mucous membr. moist/pink Neck: Supple, +2 carotid pulse wo bruit Cardiovascular: Regular rate, Normal S1, Normal S2 Lungs: Clear to auscultation Abdomen: Bowel sounds, no Tender Extremities: no Edema Neurological: Sensation intact Skin: no Rash Assessment/Plan - Assessment Assessment: TURNER- improved ESBL E. 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 severe malnutrition disloged right PNT - Plan Plan: kidney fnc has improved Mg, PO4, Ca has improved f/u electrolytes, cbc adminisister NaHco3 monitor plts closely continue TPN, IVF family considering hospice discussed w/ Dr. Jones, no right hydronephrosis per US, no need for PNT for now corrected Ca based on albumin acceptable @ 8.7 awaiting hospice replace PO4
[2016-03-28] MEDS: TPN 10%-70% CUSTOM IV SCH (16:50)
[2016-03-29] MEDS: Meropenem 1 GM in Sodium Chloride 0.9% 100 ML IV SCH ×3 (00:01→16:51)
[2016-03-29] MEDS: HYDROmorphone 2 mg/mL 1mL Vial IVP PRN ×5 (00:54→12:37)
[2016-03-29] MEDS: Morphine Sulfate 2 mg/mL 1mL Syr IVP PRN ×7 (02:17→21:20)
[2016-03-29] MEDS: Sodium Chloride 0.9% 1,000 ML IV SCH ×2 (06:00→18:17)
[2016-03-29] MEDS: INSULIN ASPART SLIDING SCALE 100 UNITS/ML UNIT SUBQ SCH ×4 (06:39→21:00)
[2016-03-29 06:50] LABS: ANION GAP 7.8 (7.0-16.0); BUN - UREA NITROGEN 28 mg/dL (7-25); CALCIUM SERUM 7.1 mg/dL (8.6-10.3); CARBON DIOXIDE 24.4 mEq/L (21.0-31.0); CHLORIDE 107 mEq/L (98-107); GLUCOSE 97 mg/dL (70-105); POTASSIUM SERUM 4.2 mEq/L (3.5-5.1); SODIUM SERUM 135 mEq/L (136-145)
[2016-03-29] MEDS ORDERED: HYDROmorphone 1 mg/mL 1mL Syr IM PRN (14:03)
--- NOTE | 2016-03-29 15:36 | General Progress Note ---
Subjective - Review of Systems Service Date: 03/29/16 Subjective: more alert, comfortable, verbal, eating some Objective - Results Result Diagrams: 03/24/16 07:05 03/29/16 06:00 Recent Labs: Laboratory Last Values WBC 4.0 Th/cmm (4.8-10.8) L D 03/24/16 07:05 RBC 2.76 Mil/cmm (4.30-5.70) L 03/24/16 07:05 Hgb 8.0 gm/dL (13.2-17.3) L 03/24/16 07:05 Hct 23.6 % (39.0-49.0) L* 03/24/16 07:05 MCV 85.3 fl (80-99) 03/24/16 07:05 MCH 29.1 pg (26.0-30.0) 03/24/16 07:05 MCHC Differential 34.1 pg (28.0-36.0) 03/24/16 07:05 RDW 15.6 % (11.5-20.0) 03/24/16 07:05 Plt Count 144 Th/cmm (150-400) L D 03/24/16 07:05 MPV 8.6 fl 03/24/16 07:05 Neutrophils % 88.9 % (40.0-80.0) H 03/21/16 06:45 Band Neutrophils % 5 % (0-10) 03/24/16 07:05 Lymphocytes % 5.3 % (20.0-50.0) L 03/21/16 06:45 Monocytes % 4.4 % (2.0-10.0) 03/21/16 06:45 Eosinophils % 1.2 % (0.0-5.0) 03/21/16 06:45 Basophils % 0.2 % (0.0-2.0) 03/21/16 06:45 Neutrophils (Manual) 72 % (40-80) 03/24/16 07:05 Lymphocytes 12 % (20-50) L 03/24/16 07:05 Monocytes 8 % (2-10) 03/24/16 07:05 Eosinophils 3 % (0-5) 03/24/16 07:05 Basophils 0 % (0-3) 03/13/16 07:23 Platelet Estimate DECREASED PLATELETS (NORMAL) 03/24/16 07:05 Platelet Morphology NORMAL (NORMAL) 03/24/16 07:05 Anisocytosis 1+ 03/24/16 07:05 RBC Morph Micro Appear ABNORMAL (NORMAL) 03/24/16 07:05 Eos Smear Source URINE 03/13/16 10:10 Eos Smear Total Cells NONE SEEN (NONE SEEN) 03/13/16 10:10 Plt Count 56 Th/cmm (150-400) L* 03/18/16 06:38 PT 13.7 SECONDS (9.5-11.5) H 03/18/16 06:38 INR 1.35 (0.5-1.4) 03/18/16 06:38 PTT (Actin FS) 32.3 SECONDS (26.0-38.0) 03/18/16 06:38 Fibrinogen 225.0 mg/dL (200.0-400.0) 03/18/16 06:38 D-Dimer 4020 ng/mL (100-400) H 03/18/16 06:38 Sodium 135 mEq/L (136-145) L 03/29/16 06:00 Potassium 4.2 mEq/L (3.5-5.1) 03/29/16 06:00 Chloride 107 mEq/L (98-107) 03/29/16 06:00 Carbon Dioxide 24.4 mEq/L (21.0-31.0) 03/29/16 06:00 Anion Gap 7.8 (7.0-16.0) 03/29/16 06:00 BUN 28 mg/dL (7-25) H 03/29/16 06:00 Creatinine 1.0 mg/dL (0.7-1.3) 03/29/16 06:00 Est GFR ( Amer) > 60.0 ml/min 03/29/16 06:00 Est GFR (Non-Af Amer) > 60.0 ml/min 03/29/16 06:00 BUN/Creatinine Ratio 28.0 03/29/16 06:00 Glucose 97 mg/dL (70-105) 03/29/16 06:00 POC Glucose 100 MG/DL (70 - 105) 03/29/16 05:56 Hemoglobin A1c % 4.9 % (4.0-6.0) 03/13/16 07:23 Plasma/Ser Osmolality 278 mOsmol/kg (275-295) 03/24/16 07:05 Whole Bld Lactic Acid 0.91 mmol/L (0.60-2.00) 03/11/16 16:00 Uric Acid 11.2 mg/dL (4.4-7.6) H 03/13/16 07:23 Calcium 7.1 mg/dL (8.6-10.3) L 03/29/16 06:00 Phosphorus 3.3 mg/dL (2.5-5.0) 03/29/16 06:00 Magnesium 2.3 mg/dL (1.9-2.7) 03/29/16 06:00 Ferritin 479 ng/mL (30-400) H 03/13/16 07:23 Total Bilirubin 0.5 mg/dL (0.3-1.0) 03/23/16 05:45 AST 15 U/L (13-39) 03/23/16 05:45 ALT 17 U/L (7-52) 03/23/16 05:45 Alkaline Phosphatase 55 U/L (34-104) 03/23/16 05:45 Total Protein 4.3 gm/dL (6.0-8.3) L 03/23/16 05:45 Albumin < 1.5 gm/dL (4.2-5.5) L 03/23/16 05:45 Globulin 2.8 gm/dL 03/23/16 05:45 Albumin/Globulin Ratio 0.5 (1.0-1.8) L 03/23/16 05:45 Prealbumin 4 mg/dL (10-36) L 03/23/16 06:00 Triglycerides 44 mg/dL (<150) 03/23/16 05:45 Cholesterol 37 mg/dL (<200) 03/23/16 05:45 Lipase 7 U/L (11-82) L 03/12/16 04:04 Carcinoembryonic Ag 39.7 ng/mL (0.0-4.7) H 03/13/16 05:33 Urine Source [place] 03/11/16 16:00 Urine Color YELLOW 03/11/16 16:00 Urine Clarity CLEAR (CLEAR) 03/11/16 16:00 Urine pH 5.5 03/11/16 16:00 Ur Specific [place] 1.015 (1.005-1.030) 03/11/16 16:00 Urine Protein 30 mg/dL (NEGATIVE) H 03/11/16 16:00 Urine Glucose (UA) NEGATIVE mg/dL (NEGATIVE) 03/11/16 16:00 Urine Ketones NEGATIVE mg/dL (NEGATIVE) 03/11/16 16:00 Urine Blood SMALL (NEGATIVE) H 03/11/16 16:00 Urine Nitrate NEGATIVE (NEGATIVE) 03/11/16 16:00 Urine Bilirubin NEGATIVE (NEGATIVE) 03/11/16 16:00 Urine Urobilinogen 0.2 E.U./dL (0.2 - 1.0) 03/11/16 16:00 Ur Leukocyte Esterase SMALL (NEGATIVE) H 03/11/16 16:00 Urine RBC 0-2 /hpf (0-5) H 03/11/16 16:00 Urine WBC 0-2 /hpf (0-5) 03/11/16 16:00 Ur Epithelial Cells RARE /lpf (FEW) 03/11/16 16:00 Urine Bacteria FEW /hpf (NONE SEEN) 03/11/16 16:00 Ur Random Sodium 31 mmol/L 03/13/16 10:10 Urine Creatinine 25.5 mg/dl (Not Estab.) 03/13/16 10:10 Urine Microalbumin 41.4 ug/mL (Not Estab.) 03/13/16 10:10 Microalb/Creat Ratio 162.4 mg/g creat (0.0-30.0) H 03/13/16 10:10 Stool Occult Blood POSITIVE (NEGATIVE) 03/13/16 10:10 Amikacin Peak 14.3 ug/mL (20.0-30.0) L 03/17/16 19:15 Amikacin Trough 4.6 ug/mL (1.0-8.0) 03/17/16 17:30 Random Vancomycin 18.4 ug/mL (5.0-40.0) 03/13/16 07:23 Blood Type O POSITIVE 03/17/16 16:10 Antibody Screen NEGATIVE 03/17/16 16:10 Crossmatch See Detail 03/17/16 16:10 - Physical Exam Vitals and I&O: Vital Signs Temp 99.0 F 03/29/16 08:00 Pulse 89 03/29/16 08:00 Resp 17 03/29/16 08:00 BP 93/64 03/29/16 08:00 Pulse Ox 100 03/29/16 08:00 Intake & Output 03/28/16 03/29/16 03/29/16 18:59 06:59 18:59 Intake Total 2627.917 2400 Output Total 1650 Balance 2627.917 750 Intake: Intake, IV Amount 2627.917 1200 Meropenem 1 gm In Sodium 100 200 Chloride 0.9% 100 ml @ 100 mls/hr IV Q8H [facility] Rx# :[id number] Multivitamin Inj 10 ml In 1712.5 Dextrose 70% 1,073 ml In Amino Acids 10% 667 ml In Intralipids 20% 50 ml @ 75 mls/hr IV .Q24H [facility] Rx#:[id number] Sodium Chloride 0.9% 1, 175.926 7330 000 ml @ 95 mls/hr IV . [id number] [facility] Rx#:[id number] Oral 300 TPN/PPN 900 Output: Urine 1250 Stool 400 Other: Stool Characteristics Liquid Liquid Liquid Active Medications: Current Medications Acetaminophen (Tylenol) 650 mg PO Q6H PRN PRN Reason: mild pain or temp >100.4 Stop: 05/10/16 18:36 Last Admin: 03/29/16 03:13 Dose: 650 mg Allopurinol (Zyloprim) 200 mg PO DAILY [facility] Stop: 05/12/16 09:14 Last Admin: 03/29/16 09:37 Dose: 200 mg Dextrose (D50w) 50 ml IVP PRN PRN PRN Reason: Blood Glucose less than 70 Stop: 05/22/16 01:22 Dextrose (Glutose 40%) 18.75 gm PO PRN PRN PRN Reason: Blood Glucose less than 70 Stop: 05/22/16 01:22 Glucagon (Glucagen) 1 mg IM PRN PRN PRN Reason: Blood Glucose less than 70 Stop: 05/22/16 01:22 Hydromorphone HCl (Dilaudid) 1 mg IM Q1H PRN PRN Reason: SEVERE PAIN Stop: 05/28/16 14:02 Last Admin: 03/29/16 15:00 Dose: 1 mg Meropenem 1 gm/ Sodium (Chloride) 100 mls @ 100 mls/hr IV Q8H [facility] Stop: 05/17/16 08:59 Last Admin: 03/29/16 10:00 Dose: 100 mls/hr Multivitamins/Minerals 10 ml/Dextrose/ Amino Acids/Electrolytes/ Fat Emulsion Intravenous 1,800 mls @ 75 mls/hr IV .Q24H [facility] Stop: 05/24/16 14:59 Last Admin: 03/28/16 16:50 Dose: 75 mls/hr Sodium Chloride (Nacl 0.9%) 1,000 mls @ 95 mls/hr IV .[id number] [facility] Stop: 05/24/16 14:59 Last Admin: 03/29/16 06:00 Dose: 95 mls/hr Insulin Aspart (Novolog Insulin Sliding Scale) 0 units SUBQ ACHS [facility] PRN Reason: Protocol Stop: 05/12/16 16:29 Last Admin: 03/29/16 11:50 Dose: Not Given Megestrol Acetate (Megace) 400 mg PO BID [facility] PRN Reason: Protocol Stop: 05/16/16 08:59 Last Admin: 03/29/16 09:36 Dose: 400 mg Mirtazapine (Remeron) 30 mg PO HS [facility] PRN Reason: Protocol Stop: 05/16/16 20:59 Last Admin: 03/28/16 21:18 Dose: 30 mg Miscellaneous (Tpn Per Pharmacy) 1 ea [facility] PRN PRN PRN Reason: PROTOCOL Stop: 05/20/16 08:53 Morphine Sulfate (Morphine) 1 mg IVP Q2HR PRN PRN Reason: Abdominal Pain Stop: 05/24/16 11:52 Last Admin: 03/29/16 14:07 Dose: 1 mg Prochlorperazine Maleate (Compazine) 10 mg PO Q6H PRN; Protocol PRN Reason: nausea and vomiting Stop: 05/10/16 18:36 Sodium Bicarbonate (Sodium Bicarbonate) 650 mg PO BID [facility] PRN Reason: Protocol Stop: 05/12/16 16:59 Last Admin: 03/29/16 09:37 Dose: 650 mg General: Alert, No acute distress HEENT: Atraumatic, Mucous membr. moist/pink Neck: Supple, +2 carotid pulse wo bruit Cardiovascular: Regular rate, Normal S1, Normal S2 Lungs: Clear to auscultation Abdomen: Bowel sounds, Soft Extremities: no Edema Neurological: Sensation intact Skin: no Rash Assessment/Plan - Assessment Assessment: TURNER- improved ESBL E. 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 severe malnutrition disloged right PNT - Plan Plan: kidney fnc has improved Mg, PO4, Ca has improved f/u electrolytes, cbc adminisister NaHco3 monitor plts closely continue TPN, IVF since bun gradually increasing discussed w/ Dr. Jones, no right hydronephrosis per US, no need for PNT for now corrected Ca based on albumin acceptable @ 8.7 awaiting hospice replace PO4
[2016-03-29] MEDS: HYDROmorphone 1 mg/mL 1mL Syr IVP PRN ×4 (16:52→22:39)
--- NOTE | 2016-03-29 21:06 | Infectious Disease Prog Note ---
Infectious Disease Subjective - Review of Systems Service Date: 03/29/16 Subjective: There is no new change. No fever. Very cachectic. Infectious Disease Objective - Results Result Diagrams: 03/24/16 07:05 03/29/16 06:00 Recent Labs: Laboratory Last Values WBC 4.0 Th/cmm (4.8-10.8) L D 03/24/16 07:05 RBC 2.76 Mil/cmm (4.30-5.70) L 03/24/16 07:05 Hgb 8.0 gm/dL (13.2-17.3) L 03/24/16 07:05 Hct 23.6 % (39.0-49.0) L* 03/24/16 07:05 MCV 85.3 fl (80-99) 03/24/16 07:05 MCH 29.1 pg (26.0-30.0) 03/24/16 07:05 MCHC Differential 34.1 pg (28.0-36.0) 03/24/16 07:05 RDW 15.6 % (11.5-20.0) 03/24/16 07:05 Plt Count 144 Th/cmm (150-400) L D 03/24/16 07:05 MPV 8.6 fl 03/24/16 07:05 Neutrophils % 88.9 % (40.0-80.0) H 03/21/16 06:45 Band Neutrophils % 5 % (0-10) 03/24/16 07:05 Lymphocytes % 5.3 % (20.0-50.0) L 03/21/16 06:45 Monocytes % 4.4 % (2.0-10.0) 03/21/16 06:45 Eosinophils % 1.2 % (0.0-5.0) 03/21/16 06:45 Basophils % 0.2 % (0.0-2.0) 03/21/16 06:45 Neutrophils (Manual) 72 % (40-80) 03/24/16 07:05 Lymphocytes 12 % (20-50) L 03/24/16 07:05 Monocytes 8 % (2-10) 03/24/16 07:05 Eosinophils 3 % (0-5) 03/24/16 07:05 Basophils 0 % (0-3) 03/13/16 07:23 Platelet Estimate DECREASED PLATELETS (NORMAL) 03/24/16 07:05 Platelet Morphology NORMAL (NORMAL) 03/24/16 07:05 Anisocytosis 1+ 03/24/16 07:05 RBC Morph Micro Appear ABNORMAL (NORMAL) 03/24/16 07:05 Eos Smear Source URINE 03/13/16 10:10 Eos Smear Total Cells NONE SEEN (NONE SEEN) 03/13/16 10:10 Plt Count 56 Th/cmm (150-400) L* 03/18/16 06:38 PT 13.7 SECONDS (9.5-11.5) H 03/18/16 06:38 INR 1.35 (0.5-1.4) 03/18/16 06:38 PTT (Actin FS) 32.3 SECONDS (26.0-38.0) 03/18/16 06:38 Fibrinogen 225.0 mg/dL (200.0-400.0) 03/18/16 06:38 D-Dimer 4020 ng/mL (100-400) H 03/18/16 06:38 Sodium 135 mEq/L (136-145) L 03/29/16 06:00 Potassium 4.2 mEq/L (3.5-5.1) 03/29/16 06:00 Chloride 107 mEq/L (98-107) 03/29/16 06:00 Carbon Dioxide 24.4 mEq/L (21.0-31.0) 03/29/16 06:00 Anion Gap 7.8 (7.0-16.0) 03/29/16 06:00 BUN 28 mg/dL (7-25) H 03/29/16 06:00 Creatinine 1.0 mg/dL (0.7-1.3) 03/29/16 06:00 Est GFR ( Amer) > 60.0 ml/min 03/29/16 06:00 Est GFR (Non-Af Amer) > 60.0 ml/min 03/29/16 06:00 BUN/Creatinine Ratio 28.0 03/29/16 06:00 Glucose 97 mg/dL (70-105) 03/29/16 06:00 POC Glucose 127 MG/DL (70 - 105) H 03/29/16 17:13 Hemoglobin A1c % 4.9 % (4.0-6.0) 03/13/16 07:23 Plasma/Ser Osmolality 278 mOsmol/kg (275-295) 03/24/16 07:05 Whole Bld Lactic Acid 0.91 mmol/L (0.60-2.00) 03/11/16 16:00 Uric Acid 11.2 mg/dL (4.4-7.6) H 03/13/16 07:23 Calcium 7.1 mg/dL (8.6-10.3) L 03/29/16 06:00 Phosphorus 3.3 mg/dL (2.5-5.0) 03/29/16 06:00 Magnesium 2.3 mg/dL (1.9-2.7) 03/29/16 06:00 Ferritin 479 ng/mL (30-400) H 03/13/16 07:23 Total Bilirubin 0.5 mg/dL (0.3-1.0) 03/23/16 05:45 AST 15 U/L (13-39) 03/23/16 05:45 ALT 17 U/L (7-52) 03/23/16 05:45 Alkaline Phosphatase 55 U/L (34-104) 03/23/16 05:45 Total Protein 4.3 gm/dL (6.0-8.3) L 03/23/16 05:45 Albumin < 1.5 gm/dL (4.2-5.5) L 03/23/16 05:45 Globulin 2.8 gm/dL 03/23/16 05:45 Albumin/Globulin Ratio 0.5 (1.0-1.8) L 03/23/16 05:45 Prealbumin 4 mg/dL (10-36) L 03/23/16 06:00 Triglycerides 44 mg/dL (<150) 03/23/16 05:45 Cholesterol 37 mg/dL (<200) 03/23/16 05:45 Lipase 7 U/L (11-82) L 03/12/16 04:04 Carcinoembryonic Ag 39.7 ng/mL (0.0-4.7) H 03/13/16 05:33 Urine Source [place] 03/11/16 16:00 Urine Color YELLOW 03/11/16 16:00 Urine Clarity CLEAR (CLEAR) 03/11/16 16:00 Urine pH 5.5 03/11/16 16:00 Ur Specific [place] 1.015 (1.005-1.030) 03/11/16 16:00 Urine Protein 30 mg/dL (NEGATIVE) H 03/11/16 16:00 Urine Glucose (UA) NEGATIVE mg/dL (NEGATIVE) 03/11/16 16:00 Urine Ketones NEGATIVE mg/dL (NEGATIVE) 03/11/16 16:00 Urine Blood SMALL (NEGATIVE) H 03/11/16 16:00 Urine Nitrate NEGATIVE (NEGATIVE) 03/11/16 16:00 Urine Bilirubin NEGATIVE (NEGATIVE) 03/11/16 16:00 Urine Urobilinogen 0.2 E.U./dL (0.2 - 1.0) 03/11/16 16:00 Ur Leukocyte Esterase SMALL (NEGATIVE) H 03/11/16 16:00 Urine RBC 0-2 /hpf (0-5) H 03/11/16 16:00 Urine WBC 0-2 /hpf (0-5) 03/11/16 16:00 Ur Epithelial Cells RARE /lpf (FEW) 03/11/16 16:00 Urine Bacteria FEW /hpf (NONE SEEN) 03/11/16 16:00 Ur Random Sodium 31 mmol/L 03/13/16 10:10 Urine Creatinine 25.5 mg/dl (Not Estab.) 03/13/16 10:10 Urine Microalbumin 41.4 ug/mL (Not Estab.) 03/13/16 10:10 Microalb/Creat Ratio 162.4 mg/g creat (0.0-30.0) H 03/13/16 10:10 Stool Occult Blood POSITIVE (NEGATIVE) 03/13/16 10:10 Amikacin Peak 14.3 ug/mL (20.0-30.0) L 03/17/16 19:15 Amikacin Trough 4.6 ug/mL (1.0-8.0) 03/17/16 17:30 Random Vancomycin 18.4 ug/mL (5.0-40.0) 03/13/16 07:23 Blood Type O POSITIVE 03/17/16 16:10 Antibody Screen NEGATIVE 03/17/16 16:10 Crossmatch See Detail 03/17/16 16:10 - Physical Exam Vitals and I&O: Vital Signs Temp 99.7 F 03/29/16 16:00 Pulse 98 03/29/16 16:00 Resp 18 03/29/16 16:00 BP 100/60 03/29/16 16:00 Pulse Ox 99 03/29/16 16:00 Intake & Output 03/29/16 03/29/16 03/30/16 06:59 18:59 06:59 Intake Total 2400 1100 Output Total 1650 Balance 750 1100 Intake: Intake, IV Amount 1200 1100 Meropenem 1 gm In Sodium 200 100 Chloride 0.9% 100 ml @ 100 mls/hr IV Q8H [facility] Rx# :[id number] Sodium Chloride 0.9% 1, 1000 1000 000 ml @ 95 mls/hr IV . [id number] [facility] Rx#:[id number] Oral 300 TPN/PPN 900 Output: Urine 1250 Stool 400 Other: Stool Characteristics Liquid Liquid Active Medications: Current Medications Acetaminophen (Tylenol) 650 mg PO Q6H PRN PRN Reason: mild pain or temp >100.4 Stop: 05/10/16 18:36 Last Admin: 03/29/16 03:13 Dose: 650 mg Allopurinol (Zyloprim) 200 mg PO DAILY [facility] Stop: 05/12/16 09:14 Last Admin: 03/29/16 09:37 Dose: 200 mg Dextrose (D50w) 50 ml IVP PRN PRN PRN Reason: Blood Glucose less than 70 Stop: 05/22/16 01:22 Dextrose (Glutose 40%) 18.75 gm PO PRN PRN PRN Reason: Blood Glucose less than 70 Stop: 05/22/16 01:22 Glucagon (Glucagen) 1 mg IM PRN PRN PRN Reason: Blood Glucose less than 70 Stop: 05/22/16 01:22 Hydromorphone HCl (Dilaudid) 1 mg IVP Q1H PRN PRN Reason: SEVERE PAIN Stop: 05/28/16 14:02 Last Admin: 03/29/16 20:17 Dose: 1 mg Meropenem 1 gm/ Sodium (Chloride) 100 mls @ 100 mls/hr IV Q8H [facility] Stop: 05/17/16 08:59 Last Admin: 03/29/16 16:51 Dose: 100 mls/hr Multivitamins/Minerals 10 ml/Dextrose/ Amino Acids/Electrolytes/ Fat Emulsion Intravenous 1,800 mls @ 75 mls/hr IV .Q24H [facility] Stop: 05/24/16 14:59 Last Admin: 03/28/16 16:50 Dose: 75 mls/hr Sodium Chloride (Nacl 0.9%) 1,000 mls @ 95 mls/hr IV .[id number] [facility] Stop: 05/24/16 14:59 Last Admin: 03/29/16 18:17 Dose: 95 mls/hr Insulin Aspart (Novolog Insulin Sliding Scale) 0 units SUBQ ACHS [facility] PRN Reason: Protocol Stop: 05/12/16 16:29 Last Admin: 03/29/16 17:18 Dose: Not Given Megestrol Acetate (Megace) 400 mg PO BID [facility] PRN Reason: Protocol Stop: 05/16/16 08:59 Last Admin: 03/29/16 18:15 Dose: 400 mg Mirtazapine (Remeron) 30 mg PO HS [facility] PRN Reason: Protocol Stop: 05/16/16 20:59 Last Admin: 03/28/16 21:18 Dose: 30 mg Miscellaneous (Tpn Per Pharmacy) 1 ea MC PRN PRN PRN Reason: PROTOCOL Stop: 05/20/16 08:53 Morphine Sulfate (Morphine) 1 mg IVP Q2HR PRN PRN Reason: Abdominal Pain Stop: 05/24/16 11:52 Last Admin: 03/29/16 17:51 Dose: 1 mg Prochlorperazine Maleate (Compazine) 10 mg PO Q6H PRN; Protocol PRN Reason: nausea and vomiting Stop: 05/10/16 18:36 Sodium Bicarbonate (Sodium Bicarbonate) 650 mg PO BID [facility] PRN Reason: Protocol Stop: 05/12/16 16:59 Last Admin: 03/29/16 18:36 Dose: 650 mg General: no acute distress, cachectic HEENT: atraumatic, normocephalic, PERRLA, EOMI, moist mucous membrane Neck: supple Cardiovascular: S1S2 Lungs: clear to auscultation bilaterally, clear to percussion Abdomen: soft, other (colostomy, nephrostomies, urostomy.), no tender, no distended Extremities: no cyanosis, no clubbing, no edema Neurological: awake, alert, oriented Infectious Disease Assmt/Plan - Assessment Assessment: 1. UTi - ESBL e coli. 2. Pelvic mass, likely CA, abscess was also suuspected. 3. Liver mass, mets versus abscess. ? biopsy may be considered. 4. Nephrostomy b/l. 5. cachexia. 6. Colon ca with mets. - Plan Plan: [facility] meropenem. Hospice eval in process.
[2016-03-30] MEDS: HYDROmorphone 1 mg/mL 1mL Syr IVP PRN ×6 (00:01→09:00)
[2016-03-30] MEDS: Morphine Sulfate 2 mg/mL 1mL Syr IVP PRN ×2 (01:29→06:27)
[2016-03-30] MEDS ORDERED: HYDROmorphone 2 mg/mL 1mL Vial IVP PRN (09:51)
[2016-03-30 10:04] LABS: ANION GAP 3.8 (7.0-16.0); BUN - UREA NITROGEN 30 mg/dL (7-25); CALCIUM SERUM 7.6 mg/dL (8.6-10.3); CARBON DIOXIDE 25.1 mEq/L (21.0-31.0); CHLORIDE 104 mEq/L (98-107); GLUCOSE 120 mg/dL (70-105); POTASSIUM SERUM 3.9 mEq/L (3.5-5.1); SODIUM SERUM 129 mEq/L (136-145)
[2016-03-30] MEDS: HYDROmorphone 2 mg/mL 1mL Vial IVP SCH ×7 (10:50→23:14)
[2016-03-30] MEDS ORDERED: Sodium Chloride 0.9% 1,000 ML IV SCH (17:21)
--- NOTE | 2016-03-30 17:26 | General Progress Note ---
Subjective - Review of Systems Service Date: 03/30/16 Subjective: more alert, comfortable, verbal, eating some Objective - Results Result Diagrams: 03/24/16 07:05 03/30/16 09:20 Recent Labs: Laboratory Last Values WBC 4.0 Th/cmm (4.8-10.8) L D 03/24/16 07:05 RBC 2.76 Mil/cmm (4.30-5.70) L 03/24/16 07:05 Hgb 8.0 gm/dL (13.2-17.3) L 03/24/16 07:05 Hct 23.6 % (39.0-49.0) L* 03/24/16 07:05 MCV 85.3 fl (80-99) 03/24/16 07:05 MCH 29.1 pg (26.0-30.0) 03/24/16 07:05 MCHC Differential 34.1 pg (28.0-36.0) 03/24/16 07:05 RDW 15.6 % (11.5-20.0) 03/24/16 07:05 Plt Count 144 Th/cmm (150-400) L D 03/24/16 07:05 MPV 8.6 fl 03/24/16 07:05 Neutrophils % 88.9 % (40.0-80.0) H 03/21/16 06:45 Band Neutrophils % 5 % (0-10) 03/24/16 07:05 Lymphocytes % 5.3 % (20.0-50.0) L 03/21/16 06:45 Monocytes % 4.4 % (2.0-10.0) 03/21/16 06:45 Eosinophils % 1.2 % (0.0-5.0) 03/21/16 06:45 Basophils % 0.2 % (0.0-2.0) 03/21/16 06:45 Neutrophils (Manual) 72 % (40-80) 03/24/16 07:05 Lymphocytes 12 % (20-50) L 03/24/16 07:05 Monocytes 8 % (2-10) 03/24/16 07:05 Eosinophils 3 % (0-5) 03/24/16 07:05 Basophils 0 % (0-3) 03/13/16 07:23 Platelet Estimate DECREASED PLATELETS (NORMAL) 03/24/16 07:05 Platelet Morphology NORMAL (NORMAL) 03/24/16 07:05 Anisocytosis 1+ 03/24/16 07:05 RBC Morph Micro Appear ABNORMAL (NORMAL) 03/24/16 07:05 Eos Smear Source URINE 03/13/16 10:10 Eos Smear Total Cells NONE SEEN (NONE SEEN) 03/13/16 10:10 Plt Count 56 Th/cmm (150-400) L* 03/18/16 06:38 PT 13.7 SECONDS (9.5-11.5) H 03/18/16 06:38 INR 1.35 (0.5-1.4) 03/18/16 06:38 PTT (Actin FS) 32.3 SECONDS (26.0-38.0) 03/18/16 06:38 Fibrinogen 225.0 mg/dL (200.0-400.0) 03/18/16 06:38 D-Dimer 4020 ng/mL (100-400) H 03/18/16 06:38 Sodium 129 mEq/L (136-145) L 03/30/16 09:20 Potassium 3.9 mEq/L (3.5-5.1) 03/30/16 09:20 Chloride 104 mEq/L (98-107) 03/30/16 09:20 Carbon Dioxide 25.1 mEq/L (21.0-31.0) 03/30/16 09:20 Anion Gap 3.8 (7.0-16.0) L 03/30/16 09:20 BUN 30 mg/dL (7-25) H 03/30/16 09:20 Creatinine 1.0 mg/dL (0.7-1.3) 03/30/16 09:20 Est GFR ( Amer) > 60.0 ml/min 03/30/16 09:20 Est GFR (Non-Af Amer) > 60.0 ml/min 03/30/16 09:20 BUN/Creatinine Ratio 30.0 03/30/16 09:20 Glucose 120 mg/dL (70-105) H 03/30/16 09:20 POC Glucose 105 MG/DL (70 - 105) 03/30/16 00:12 Hemoglobin A1c % 4.9 % (4.0-6.0) 03/13/16 07:23 Plasma/Ser Osmolality 278 mOsmol/kg (275-295) 03/24/16 07:05 Whole Bld Lactic Acid 0.91 mmol/L (0.60-2.00) 03/11/16 16:00 Uric Acid 11.2 mg/dL (4.4-7.6) H 03/13/16 07:23 Calcium 7.6 mg/dL (8.6-10.3) L 03/30/16 09:20 Phosphorus 2.9 mg/dL (2.5-5.0) 03/30/16 09:20 Magnesium 2.4 mg/dL (1.9-2.7) 03/30/16 09:20 Ferritin 479 ng/mL (30-400) H 03/13/16 07:23 Total Bilirubin 0.5 mg/dL (0.3-1.0) 03/23/16 05:45 AST 15 U/L (13-39) 03/23/16 05:45 ALT 17 U/L (7-52) 03/23/16 05:45 Alkaline Phosphatase 55 U/L (34-104) 03/23/16 05:45 Total Protein 4.3 gm/dL (6.0-8.3) L 03/23/16 05:45 Albumin < 1.5 gm/dL (4.2-5.5) L 03/23/16 05:45 Globulin 2.8 gm/dL 03/23/16 05:45 Albumin/Globulin Ratio 0.5 (1.0-1.8) L 03/23/16 05:45 Prealbumin 4 mg/dL (10-36) L 03/23/16 06:00 Triglycerides 44 mg/dL (<150) 03/23/16 05:45 Cholesterol 37 mg/dL (<200) 03/23/16 05:45 Lipase 7 U/L (11-82) L 03/12/16 04:04 Carcinoembryonic Ag 39.7 ng/mL (0.0-4.7) H 03/13/16 05:33 Urine Source [place] 03/11/16 16:00 Urine Color YELLOW 03/11/16 16:00 Urine Clarity CLEAR (CLEAR) 03/11/16 16:00 Urine pH 5.5 03/11/16 16:00 Ur Specific [place] 1.015 (1.005-1.030) 03/11/16 16:00 Urine Protein 30 mg/dL (NEGATIVE) H 03/11/16 16:00 Urine Glucose (UA) NEGATIVE mg/dL (NEGATIVE) 03/11/16 16:00 Urine Ketones NEGATIVE mg/dL (NEGATIVE) 03/11/16 16:00 Urine Blood SMALL (NEGATIVE) H 03/11/16 16:00 Urine Nitrate NEGATIVE (NEGATIVE) 03/11/16 16:00 Urine Bilirubin NEGATIVE (NEGATIVE) 03/11/16 16:00 Urine Urobilinogen 0.2 E.U./dL (0.2 - 1.0) 03/11/16 16:00 Ur Leukocyte Esterase SMALL (NEGATIVE) H 03/11/16 16:00 Urine RBC 0-2 /hpf (0-5) H 03/11/16 16:00 Urine WBC 0-2 /hpf (0-5) 03/11/16 16:00 Ur Epithelial Cells RARE /lpf (FEW) 03/11/16 16:00 Urine Bacteria FEW /hpf (NONE SEEN) 03/11/16 16:00 Ur Random Sodium 31 mmol/L 03/13/16 10:10 Urine Creatinine 25.5 mg/dl (Not Estab.) 03/13/16 10:10 Urine Microalbumin 41.4 ug/mL (Not Estab.) 03/13/16 10:10 Microalb/Creat Ratio 162.4 mg/g creat (0.0-30.0) H 03/13/16 10:10 Stool Occult Blood POSITIVE (NEGATIVE) 03/13/16 10:10 Amikacin Peak 14.3 ug/mL (20.0-30.0) L 03/17/16 19:15 Amikacin Trough 4.6 ug/mL (1.0-8.0) 03/17/16 17:30 Random Vancomycin 18.4 ug/mL (5.0-40.0) 03/13/16 07:23 Blood Type O POSITIVE 03/17/16 16:10 Antibody Screen NEGATIVE 03/17/16 16:10 Crossmatch See Detail 03/17/16 16:10 - Physical Exam Vitals and I&O: Vital Signs Temp 99.1 F 03/30/16 16:00 Pulse 104 03/30/16 16:00 Resp 20 03/30/16 16:00 BP 98/70 01/16/17 16:00 Pulse Ox 95 03/30/16 16:00 Intake & Output 03/29/16 03/30/16 03/30/16 18:59 06:59 18:59 Intake Total 1100 400 Output Total 450 270 Balance 1100 -450 130 Intake: Intake, IV Amount 1100 Meropenem 1 gm In Sodium 100 Chloride 0.9% 100 ml @ 100 mls/hr IV Q8H [facility] Rx# :[id number] Sodium Chloride 0.9% 1, 1000 000 ml @ 95 mls/hr IV . [id number] [facility] Rx#:[id number] Oral 100 TPN/PPN 300 Output: Urine 200 Urine/Stool Mix 450 Emesis 70 Other: Stool Characteristics Liquid Soft Soft Formed [place] Brown Active Medications: Current Medications Acetaminophen (Tylenol) 650 mg PO Q6H PRN PRN Reason: mild pain or temp >100.4 Stop: 05/10/16 18:36 Last Admin: 03/29/16 03:13 Dose: 650 mg Allopurinol (Zyloprim) 200 mg PO DAILY [facility] Stop: 05/12/16 09:14 Last Admin: 03/30/16 10:50 Dose: 200 mg Dextrose (D50w) 50 ml IVP PRN PRN PRN Reason: Blood Glucose less than 70 Stop: 05/22/16 01:22 Dextrose (Glutose 40%) 18.75 gm PO PRN PRN PRN Reason: Blood Glucose less than 70 Stop: 05/22/16 01:22 Glucagon (Glucagen) 1 mg IM PRN PRN PRN Reason: Blood Glucose less than 70 Stop: 05/22/16 01:22 Hydromorphone HCl (Dilaudid) 2 mg IVP Q1H [facility] Stop: 05/29/16 10:44 Last Admin: 03/30/16 17:17 Dose: 2 mg Multivitamins/Minerals 10 ml/Dextrose/ Amino Acids/Electrolytes/ Fat Emulsion Intravenous 1,800 mls @ 75 mls/hr IV .Q24H [facility] Stop: 05/24/16 14:59 Last Admin: 03/28/16 16:50 Dose: 75 mls/hr Sodium Chloride (Nacl 0.9%) 1,000 mls @ 60 mls/hr IV .[id number] [facility] Stop: 05/24/16 14:59 Insulin Aspart (Novolog Insulin Sliding Scale) 0 units SUBQ ACHS [facility] PRN Reason: Protocol Stop: 05/12/16 16:29 Last Admin: 03/29/16 21:00 Dose: Not Given Megestrol Acetate (Megace) 400 mg PO BID [facility] PRN Reason: Protocol Stop: 05/16/16 08:59 Last Admin: 03/30/16 10:53 Dose: 400 mg Mirtazapine (Remeron) 30 mg PO HS [facility] PRN Reason: Protocol Stop: 05/16/16 20:59 Last Admin: 03/30/16 01:31 Dose: 30 mg Miscellaneous (Tpn Per Pharmacy) 1 ea MC PRN PRN PRN Reason: PROTOCOL Stop: 05/20/16 08:53 Morphine Sulfate (Morphine) 1 mg IVP Q2HR PRN PRN Reason: Abdominal Pain Stop: 05/24/16 11:52 Last Admin: 03/30/16 06:27 Dose: 1 mg Prochlorperazine Maleate (Compazine) 10 mg PO Q6H PRN; Protocol PRN Reason: nausea and vomiting Stop: 05/10/16 18:36 Last Admin: 03/30/16 10:53 Dose: 10 mg Sodium Bicarbonate (Sodium Bicarbonate) 650 mg PO BID [facility] PRN Reason: Protocol Stop: 05/12/16 16:59 Last Admin: 03/30/16 10:52 Dose: 650 mg General: Alert, No acute distress HEENT: Atraumatic, EOMI, Mucous membr. moist/pink Neck: Supple, +2 carotid pulse wo bruit Cardiovascular: Regular rate, Normal S1, Normal S2 Lungs: Clear to auscultation Abdomen: Bowel sounds, Soft Extremities: no Edema Neurological: Sensation intact Skin: no Rash Assessment/Plan - Assessment Assessment: TURNER- improved ESBL E. coli septicemia met colon CA w/ partial colectomy & left colostomy bag acute on CD anemia ABD wall cellulitis w/ abscess EC fistula HYponatremia possible overhydration svere malnutrition hypoglycemia nongap met acid 2nd to GI loss Hco3 thrombocytopenia med induced? severe malnutrition disloged right PNT - Plan Plan: kidney fnc has improved Mg, PO4, Ca has improved f/u electrolytes, cbc adminisister NaHco3 monitor plts closely continue TPN (75ml/hr) & decrease IVF (60 ml/ hr) discussed w/ Dr. Jones, no right hydronephrosis per US, no need for PNT for now corrected Ca based on albumin acceptable @ 8.7 awaiting hospice replace PO4
[2016-03-30] MEDS: INSULIN ASPART SLIDING SCALE 100 UNITS/ML UNIT SUBQ SCH (22:14)
[2016-03-31] MEDS: HYDROmorphone 2 mg/mL 1mL Vial IVP SCH ×21 (00:07→19:13)
[2016-03-31] MEDS: INSULIN ASPART SLIDING SCALE 100 UNITS/ML UNIT SUBQ SCH ×3 (06:41→17:18)
[2016-03-31 09:05] LABS: ALB/GLOB RATIO 0.5 (1.0-1.8); ALKALINE PHOSPHATASE 83 U/L (34-104); BILIRUBIN,TOTAL 0.3 mg/dL (0.3-1.0); BUN - UREA NITROGEN 30 mg/dL (7-25); CARBON DIOXIDE 23.4 mEq/L (21.0-31.0); CHLORIDE 108 mEq/L (98-107); GLUCOSE 80 mg/dL (70-105); POTASSIUM SERUM 4.4 mEq/L (3.5-5.1); SGOT 22 U/L (13-39); SGPT/ALT 14 U/L (7-52); SODIUM SERUM 134 mEq/L (136-145)
--- NOTE | 2016-03-31 11:58 | Infectious Disease Prog Note ---
Infectious Disease Subjective - Review of Systems Service Date: 03/31/16 Subjective: There is no new change. No fever. Very cachectic. Infectious Disease Objective - Results Result Diagrams: 03/24/16 07:05 03/31/16 06:00 Recent Labs: Laboratory Last Values WBC 4.0 Th/cmm (4.8-10.8) L D 03/24/16 07:05 RBC 2.76 Mil/cmm (4.30-5.70) L 03/24/16 07:05 Hgb 8.0 gm/dL (13.2-17.3) L 03/24/16 07:05 Hct 23.6 % (39.0-49.0) L* 03/24/16 07:05 MCV 85.3 fl (80-99) 03/24/16 07:05 MCH 29.1 pg (26.0-30.0) 03/24/16 07:05 MCHC Differential 34.1 pg (28.0-36.0) 03/24/16 07:05 RDW 15.6 % (11.5-20.0) 03/24/16 07:05 Plt Count 144 Th/cmm (150-400) L D 03/24/16 07:05 MPV 8.6 fl 03/24/16 07:05 Neutrophils % 88.9 % (40.0-80.0) H 03/21/16 06:45 Band Neutrophils % 5 % (0-10) 03/24/16 07:05 Lymphocytes % 5.3 % (20.0-50.0) L 03/21/16 06:45 Monocytes % 4.4 % (2.0-10.0) 03/21/16 06:45 Eosinophils % 1.2 % (0.0-5.0) 03/21/16 06:45 Basophils % 0.2 % (0.0-2.0) 03/21/16 06:45 Neutrophils (Manual) 72 % (40-80) 03/24/16 07:05 Lymphocytes 12 % (20-50) L 03/24/16 07:05 Monocytes 8 % (2-10) 03/24/16 07:05 Eosinophils 3 % (0-5) 03/24/16 07:05 Basophils 0 % (0-3) 03/13/16 07:23 Platelet Estimate DECREASED PLATELETS (NORMAL) 03/24/16 07:05 Platelet Morphology NORMAL (NORMAL) 03/24/16 07:05 Anisocytosis 1+ 03/24/16 07:05 RBC Morph Micro Appear ABNORMAL (NORMAL) 03/24/16 07:05 Eos Smear Source URINE 03/13/16 10:10 Eos Smear Total Cells NONE SEEN (NONE SEEN) 03/13/16 10:10 Plt Count 56 Th/cmm (150-400) L* 03/18/16 06:38 PT 13.7 SECONDS (9.5-11.5) H 03/18/16 06:38 INR 1.35 (0.5-1.4) 03/18/16 06:38 PTT (Actin FS) 32.3 SECONDS (26.0-38.0) 03/18/16 06:38 Fibrinogen 225.0 mg/dL (200.0-400.0) 03/18/16 06:38 D-Dimer 4020 ng/mL (100-400) H 03/18/16 06:38 Sodium 134 mEq/L (136-145) L 03/31/16 06:00 Potassium 4.4 mEq/L (3.5-5.1) 03/31/16 06:00 Chloride 108 mEq/L (98-107) H 03/31/16 06:00 Carbon Dioxide 23.4 mEq/L (21.0-31.0) 03/31/16 06:00 Anion Gap 7.0 (7.0-16.0) 03/31/16 06:00 BUN 30 mg/dL (7-25) H 03/31/16 06:00 Creatinine 1.0 mg/dL (0.7-1.3) 03/31/16 06:00 Est GFR ( Amer) > 60.0 ml/min 03/31/16 06:00 Est GFR (Non-Af Amer) > 60.0 ml/min 03/31/16 06:00 BUN/Creatinine Ratio 30.0 03/31/16 06:00 Glucose 80 mg/dL (70-105) 03/31/16 06:00 POC Glucose 96 MG/DL (70 - 105) 03/31/16 06:25 Hemoglobin A1c % 4.9 % (4.0-6.0) 03/13/16 07:23 Plasma/Ser Osmolality 278 mOsmol/kg (275-295) 03/24/16 07:05 Whole Bld Lactic Acid 0.91 mmol/L (0.60-2.00) 03/11/16 16:00 Uric Acid 11.2 mg/dL (4.4-7.6) H 03/13/16 07:23 Calcium 7.0 mg/dL (8.6-10.3) L 03/31/16 06:00 Phosphorus 3.0 mg/dL (2.5-5.0) 03/31/16 06:00 Magnesium 2.3 mg/dL (1.9-2.7) 03/31/16 06:00 Ferritin 479 ng/mL (30-400) H 03/13/16 07:23 Total Bilirubin 0.3 mg/dL (0.3-1.0) 03/31/16 06:00 AST 22 U/L (13-39) 03/31/16 06:00 ALT 14 U/L (7-52) 03/31/16 06:00 Alkaline Phosphatase 83 U/L (34-104) 03/31/16 06:00 Total Protein 4.8 gm/dL (6.0-8.3) L 03/31/16 06:00 Albumin < 1.5 gm/dL (4.2-5.5) L 03/31/16 06:00 Globulin 3.3 gm/dL 03/31/16 06:00 Albumin/Globulin Ratio 0.5 (1.0-1.8) L 03/31/16 06:00 Prealbumin 4 mg/dL (10-36) L 03/23/16 06:00 Triglycerides 57 mg/dL (<150) 03/31/16 06:00 Cholesterol 42 mg/dL (<200) 03/31/16 06:00 Lipase 7 U/L (11-82) L 03/12/16 04:04 Carcinoembryonic Ag 39.7 ng/mL (0.0-4.7) H 03/13/16 05:33 Urine Source [place] 03/11/16 16:00 Urine Color YELLOW 03/11/16 16:00 Urine Clarity CLEAR (CLEAR) 03/11/16 16:00 Urine pH 5.5 03/11/16 16:00 Ur Specific Equality 1.015 (1.005-1.030) 03/11/16 16:00 Urine Protein 30 mg/dL (NEGATIVE) H 03/11/16 16:00 Urine Glucose (UA) NEGATIVE mg/dL (NEGATIVE) 03/11/16 16:00 Urine Ketones NEGATIVE mg/dL (NEGATIVE) 03/11/16 16:00 Urine Blood SMALL (NEGATIVE) H 03/11/16 16:00 Urine Nitrate NEGATIVE (NEGATIVE) 03/11/16 16:00 Urine Bilirubin NEGATIVE (NEGATIVE) 03/11/16 16:00 Urine Urobilinogen 0.2 E.U./dL (0.2 - 1.0) 03/11/16 16:00 Ur Leukocyte Esterase SMALL (NEGATIVE) H 03/11/16 16:00 Urine RBC 0-2 /hpf (0-5) H 03/11/16 16:00 Urine WBC 0-2 /hpf (0-5) 03/11/16 16:00 Ur Epithelial Cells RARE /lpf (FEW) 03/11/16 16:00 Urine Bacteria FEW /hpf (NONE SEEN) 03/11/16 16:00 Ur Random Sodium 31 mmol/L 03/13/16 10:10 Urine Creatinine 25.5 mg/dl (Not Estab.) 03/13/16 10:10 Urine Microalbumin 41.4 ug/mL (Not Estab.) 03/13/16 10:10 Microalb/Creat Ratio 162.4 mg/g creat (0.0-30.0) H 03/13/16 10:10 Stool Occult Blood POSITIVE (NEGATIVE) 03/13/16 10:10 Amikacin Peak 14.3 ug/mL (20.0-30.0) L 03/17/16 19:15 Amikacin Trough 4.6 ug/mL (1.0-8.0) 03/17/16 17:30 Random Vancomycin 18.4 ug/mL (5.0-40.0) 03/13/16 07:23 Blood Type O POSITIVE 03/17/16 16:10 Antibody Screen NEGATIVE 03/17/16 16:10 Crossmatch See Detail 03/17/16 16:10 - Physical Exam Vitals and I&O: Vital Signs Temp 98.6 F 03/31/16 07:00 Pulse 100 03/31/16 07:00 Resp 18 03/31/16 07:00 BP 90/57 03/31/16 07:00 Pulse Ox 97 03/31/16 07:00 Intake & Output 03/30/16 03/31/16 03/31/16 18:59 06:59 18:59 Intake Total 400 1000 Output Total 270 935 Balance 130 65 Intake: Oral 100 100 TPN/PPN 300 900 Output: Drainage 425 Mid-Abd Fistula 425 Urine 200 450 Emesis 70 Other 60 Other: # Bowel Movements 2 Stool Characteristics Soft Soft Foamy Foamy Brown Brown Active Medications: Current Medications Acetaminophen (Tylenol) 650 mg PO Q6H PRN PRN Reason: mild pain or temp >100.4 Stop: 05/10/16 18:36 Last Admin: 03/29/16 03:13 Dose: 650 mg Allopurinol (Zyloprim) 200 mg PO DAILY [facility] Stop: 05/12/16 09:14 Last Admin: 03/31/16 11:02 Dose: Not Given Dextrose (D50w) 50 ml IVP PRN PRN PRN Reason: Blood Glucose less than 70 Stop: 05/22/16 01:22 Dextrose (Glutose 40%) 18.75 gm PO PRN PRN PRN Reason: Blood Glucose less than 70 Stop: 05/22/16 01:22 Glucagon (Glucagen) 1 mg IM PRN PRN PRN Reason: Blood Glucose less than 70 Stop: 05/22/16 01:22 Hydromorphone HCl (Dilaudid) 2 mg IVP Q1H [facility] Stop: 05/29/16 10:44 Last Admin: 03/31/16 11:50 Dose: 2 mg Multivitamins/Minerals 10 ml/Dextrose/ Amino Acids/Electrolytes/ Fat Emulsion Intravenous 1,800 mls @ 75 mls/hr IV .Q24H [facility] Stop: 05/24/16 14:59 Last Admin: 03/28/16 16:50 Dose: 75 mls/hr Sodium Chloride (Nacl 0.9%) 1,000 mls @ 60 mls/hr IV .[id number] [facility] Stop: 05/24/16 14:59 Insulin Aspart (Novolog Insulin Sliding Scale) 0 units SUBQ ACHS [facility] PRN Reason: Protocol Stop: 05/12/16 16:29 Last Admin: 03/31/16 11:19 Dose: Not Given Megestrol Acetate (Megace) 400 mg PO BID [facility] PRN Reason: Protocol Stop: 05/16/16 08:59 Last Admin: 03/31/16 10:58 Dose: 400 mg Mirtazapine (Remeron) 30 mg PO HS [facility] PRN Reason: Protocol Stop: 05/16/16 20:59 Last Admin: 03/30/16 22:10 Dose: 30 mg Miscellaneous (Tpn Per Pharmacy) 1 ea MC PRN PRN PRN Reason: PROTOCOL Stop: 05/20/16 08:53 Morphine Sulfate (Morphine) 1 mg IVP Q2HR PRN PRN Reason: Abdominal Pain Stop: 05/24/16 11:52 Last Admin: 03/30/16 06:27 Dose: 1 mg Prochlorperazine Maleate (Compazine) 10 mg PO Q6H PRN; Protocol PRN Reason: nausea and vomiting Stop: 05/10/16 18:36 Last Admin: 03/30/16 10:53 Dose: 10 mg Sodium Bicarbonate (Sodium Bicarbonate) 650 mg PO BID [facility] PRN Reason: Protocol Stop: 05/12/16 16:59 Last Admin: 03/31/16 10:58 Dose: 650 mg General: no acute distress, cachectic HEENT: atraumatic, normocephalic, PERRLA, EOMI Neck: supple, no thyromegaly, no lymphadenopathy Cardiovascular: S1S2, regular Lungs: clear to auscultation bilaterally, clear to percussion Abdomen: soft, tender, other (colostomy, urostomy. nephrostomy.), no distended Extremities: no cyanosis, no clubbing, no edema Neurological: awake, alert, oriented Skin: intact Infectious Disease Assmt/Plan - Assessment Assessment: 1. UTi - ESBL e coli. 2. Pelvic mass, likely CA, abscess was also suuspected. 3. Liver mass, mets versus abscess. ? biopsy may be considered. 4. Nephrostomy b/l. 5. cachexia. 6. Colon ca with mets. - Plan Plan: Off antibiotics, I will see the patient prn basis. Hospice eval in process.
--- NOTE | 2016-03-31 12:28 | General Progress Note ---
Subjective - Review of Systems Service Date: 03/31/16 Subjective: more alert, comfortable, verbal, eating some Objective - Results Result Diagrams: 03/24/16 07:05 03/31/16 06:00 Recent Labs: Laboratory Last Values WBC 4.0 Th/cmm (4.8-10.8) L D 03/24/16 07:05 RBC 2.76 Mil/cmm (4.30-5.70) L 03/24/16 07:05 Hgb 8.0 gm/dL (13.2-17.3) L 03/24/16 07:05 Hct 23.6 % (39.0-49.0) L* 03/24/16 07:05 MCV 85.3 fl (80-99) 03/24/16 07:05 MCH 29.1 pg (26.0-30.0) 03/24/16 07:05 MCHC Differential 34.1 pg (28.0-36.0) 03/24/16 07:05 RDW 15.6 % (11.5-20.0) 03/24/16 07:05 Plt Count 144 Th/cmm (150-400) L D 03/24/16 07:05 MPV 8.6 fl 03/24/16 07:05 Neutrophils % 88.9 % (40.0-80.0) H 03/21/16 06:45 Band Neutrophils % 5 % (0-10) 03/24/16 07:05 Lymphocytes % 5.3 % (20.0-50.0) L 03/21/16 06:45 Monocytes % 4.4 % (2.0-10.0) 03/21/16 06:45 Eosinophils % 1.2 % (0.0-5.0) 03/21/16 06:45 Basophils % 0.2 % (0.0-2.0) 03/21/16 06:45 Neutrophils (Manual) 72 % (40-80) 03/24/16 07:05 Lymphocytes 12 % (20-50) L 03/24/16 07:05 Monocytes 8 % (2-10) 03/24/16 07:05 Eosinophils 3 % (0-5) 03/24/16 07:05 Basophils 0 % (0-3) 03/13/16 07:23 Platelet Estimate DECREASED PLATELETS (NORMAL) 03/24/16 07:05 Platelet Morphology NORMAL (NORMAL) 03/24/16 07:05 Anisocytosis 1+ 03/24/16 07:05 RBC Morph Micro Appear ABNORMAL (NORMAL) 03/24/16 07:05 Eos Smear Source URINE 03/13/16 10:10 Eos Smear Total Cells NONE SEEN (NONE SEEN) 03/13/16 10:10 Plt Count 56 Th/cmm (150-400) L* 03/18/16 06:38 PT 13.7 SECONDS (9.5-11.5) H 03/18/16 06:38 INR 1.35 (0.5-1.4) 03/18/16 06:38 PTT (Actin FS) 32.3 SECONDS (26.0-38.0) 03/18/16 06:38 Fibrinogen 225.0 mg/dL (200.0-400.0) 03/18/16 06:38 D-Dimer 4020 ng/mL (100-400) H 03/18/16 06:38 Sodium 134 mEq/L (136-145) L 03/31/16 06:00 Potassium 4.4 mEq/L (3.5-5.1) 03/31/16 06:00 Chloride 108 mEq/L (98-107) H 03/31/16 06:00 Carbon Dioxide 23.4 mEq/L (21.0-31.0) 03/31/16 06:00 Anion Gap 7.0 (7.0-16.0) 03/31/16 06:00 BUN 30 mg/dL (7-25) H 03/31/16 06:00 Creatinine 1.0 mg/dL (0.7-1.3) 03/31/16 06:00 Est GFR ( Amer) > 60.0 ml/min 03/31/16 06:00 Est GFR (Non-Af Amer) > 60.0 ml/min 03/31/16 06:00 BUN/Creatinine Ratio 30.0 03/31/16 06:00 Glucose 80 mg/dL (70-105) 03/31/16 06:00 POC Glucose 97 MG/DL (70 - 105) 03/31/16 11:16 Hemoglobin A1c % 4.9 % (4.0-6.0) 03/13/16 07:23 Plasma/Ser Osmolality 278 mOsmol/kg (275-295) 03/24/16 07:05 Whole Bld Lactic Acid 0.91 mmol/L (0.60-2.00) 03/11/16 16:00 Uric Acid 11.2 mg/dL (4.4-7.6) H 03/13/16 07:23 Calcium 7.0 mg/dL (8.6-10.3) L 03/31/16 06:00 Phosphorus 3.0 mg/dL (2.5-5.0) 03/31/16 06:00 Magnesium 2.3 mg/dL (1.9-2.7) 03/31/16 06:00 Ferritin 479 ng/mL (30-400) H 03/13/16 07:23 Total Bilirubin 0.3 mg/dL (0.3-1.0) 03/31/16 06:00 AST 22 U/L (13-39) 03/31/16 06:00 ALT 14 U/L (7-52) 03/31/16 06:00 Alkaline Phosphatase 83 U/L (34-104) 03/31/16 06:00 Total Protein 4.8 gm/dL (6.0-8.3) L 03/31/16 06:00 Albumin < 1.5 gm/dL (4.2-5.5) L 03/31/16 06:00 Globulin 3.3 gm/dL 03/31/16 06:00 Albumin/Globulin Ratio 0.5 (1.0-1.8) L 03/31/16 06:00 Prealbumin 4 mg/dL (10-36) L 03/23/16 06:00 Triglycerides 57 mg/dL (<150) 03/31/16 06:00 Cholesterol 42 mg/dL (<200) 03/31/16 06:00 Lipase 7 U/L (11-82) L 03/12/16 04:04 Carcinoembryonic Ag 39.7 ng/mL (0.0-4.7) H 03/13/16 05:33 Urine Source [place] 03/11/16 16:00 Urine Color YELLOW 03/11/16 16:00 Urine Clarity CLEAR (CLEAR) 03/11/16 16:00 Urine pH 5.5 03/11/16 16:00 Ur Specific [place] 1.015 (1.005-1.030) 03/11/16 16:00 Urine Protein 30 mg/dL (NEGATIVE) H 03/11/16 16:00 Urine Glucose (UA) NEGATIVE mg/dL (NEGATIVE) 03/11/16 16:00 Urine Ketones NEGATIVE mg/dL (NEGATIVE) 03/11/16 16:00 Urine Blood SMALL (NEGATIVE) H 03/11/16 16:00 Urine Nitrate NEGATIVE (NEGATIVE) 03/11/16 16:00 Urine Bilirubin NEGATIVE (NEGATIVE) 03/11/16 16:00 Urine Urobilinogen 0.2 E.U./dL (0.2 - 1.0) 03/11/16 16:00 Ur Leukocyte Esterase SMALL (NEGATIVE) H 03/11/16 16:00 Urine RBC 0-2 /hpf (0-5) H 03/11/16 16:00 Urine WBC 0-2 /hpf (0-5) 03/11/16 16:00 Ur Epithelial Cells RARE /lpf (FEW) 03/11/16 16:00 Urine Bacteria FEW /hpf (NONE SEEN) 03/11/16 16:00 Ur Random Sodium 31 mmol/L 03/13/16 10:10 Urine Creatinine 25.5 mg/dl (Not Estab.) 03/13/16 10:10 Urine Microalbumin 41.4 ug/mL (Not Estab.) 03/13/16 10:10 Microalb/Creat Ratio 162.4 mg/g creat (0.0-30.0) H 03/13/16 10:10 Stool Occult Blood POSITIVE (NEGATIVE) 03/13/16 10:10 Amikacin Peak 14.3 ug/mL (20.0-30.0) L 03/17/16 19:15 Amikacin Trough 4.6 ug/mL (1.0-8.0) 03/17/16 17:30 Random Vancomycin 18.4 ug/mL (5.0-40.0) 03/13/16 07:23 Blood Type O POSITIVE 03/17/16 16:10 Antibody Screen NEGATIVE 03/17/16 16:10 Crossmatch See Detail 03/17/16 16:10 - Physical Exam Vitals and I&O: Vital Signs Temp 98.6 F 03/31/16 07:00 Pulse 100 03/31/16 07:00 Resp 18 03/31/16 07:00 BP 90/57 03/31/16 07:00 Pulse Ox 97 03/31/16 07:00 Intake & Output 03/30/16 03/31/16 03/31/16 18:59 06:59 18:59 Intake Total 400 1000 Output Total 270 935 Balance 130 65 Intake: Oral 100 100 TPN/PPN 300 900 Output: Drainage 425 Mid-Abd Fistula 425 Urine 200 450 Emesis 70 Other 60 Other: # Bowel Movements 2 Stool Characteristics Soft Soft Foamy Foamy Brown Brown Active Medications: Current Medications Acetaminophen (Tylenol) 650 mg PO Q6H PRN PRN Reason: mild pain or temp >100.4 Stop: 05/10/16 18:36 Last Admin: 03/29/16 03:13 Dose: 650 mg Allopurinol (Zyloprim) 200 mg PO DAILY [facility] Stop: 05/12/16 09:14 Last Admin: 03/31/16 11:02 Dose: Not Given Dextrose (D50w) 50 ml IVP PRN PRN PRN Reason: Blood Glucose less than 70 Stop: 05/22/16 01:22 Dextrose (Glutose 40%) 18.75 gm PO PRN PRN PRN Reason: Blood Glucose less than 70 Stop: 05/22/16 01:22 Glucagon (Glucagen) 1 mg IM PRN PRN PRN Reason: Blood Glucose less than 70 Stop: 05/22/16 01:22 Hydromorphone HCl (Dilaudid) 2 mg IVP Q1H [facility] Stop: 05/29/16 10:44 Last Admin: 03/31/16 11:50 Dose: 2 mg Multivitamins/Minerals 10 ml/Dextrose/ Amino Acids/Electrolytes/ Fat Emulsion Intravenous 1,800 mls @ 75 mls/hr IV .Q24H [facility] Stop: 05/24/16 14:59 Last Admin: 03/28/16 16:50 Dose: 75 mls/hr Sodium Chloride (Nacl 0.9%) 1,000 mls @ 60 mls/hr IV .[id number] [facility] Stop: 05/24/16 14:59 Insulin Aspart (Novolog Insulin Sliding Scale) 0 units SUBQ ACHS [facility] PRN Reason: Protocol Stop: 05/12/16 16:29 Last Admin: 03/31/16 11:19 Dose: Not Given Megestrol Acetate (Megace) 400 mg PO BID [facility] PRN Reason: Protocol Stop: 05/16/16 08:59 Last Admin: 03/31/16 10:58 Dose: 400 mg Mirtazapine (Remeron) 30 mg PO HS [facility] PRN Reason: Protocol Stop: 05/16/16 20:59 Last Admin: 03/30/16 22:10 Dose: 30 mg Miscellaneous (Tpn Per Pharmacy) 1 ea MC PRN PRN PRN Reason: PROTOCOL Stop: 05/20/16 08:53 Morphine Sulfate (Morphine) 1 mg IVP Q2HR PRN PRN Reason: Abdominal Pain Stop: 05/24/16 11:52 Last Admin: 03/30/16 06:27 Dose: 1 mg Prochlorperazine Maleate (Compazine) 10 mg PO Q6H PRN; Protocol PRN Reason: nausea and vomiting Stop: 05/10/16 18:36 Last Admin: 03/30/16 10:53 Dose: 10 mg Sodium Bicarbonate (Sodium Bicarbonate) 650 mg PO BID [facility] PRN Reason: Protocol Stop: 05/12/16 16:59 Last Admin: 03/31/16 10:58 Dose: 650 mg General: Alert, No acute distress HEENT: Atraumatic, Mucous membr. moist/pink Neck: Supple, +2 carotid pulse wo bruit Cardiovascular: Regular rate, Normal S1, Normal S2 Lungs: Clear to auscultation Abdomen: Bowel sounds, Soft Extremities: no Edema Neurological: Normal speech, Sensation intact Skin: no Rash Assessment/Plan - Assessment Assessment: TURNER- improved ESBL E. coli septicemia met colon CA w/ partial colectomy & left colostomy bag acute on CD anemia ABD wall cellulitis w/ abscess EC fistula HYponatremia possible overhydration svere malnutrition hypoglycemia nongap met acid 2nd to GI loss Hco3 thrombocytopenia med induced? severe malnutrition disloged right PNT - Plan Plan: kidney fnc has improved Mg, PO4, Ca has improved f/u electrolytes, cbc adminisister NaHco3 monitor plts closely continue TPN (75ml/hr) & decrease IVF (60 ml/ hr) discussed w/ Dr. Jones, no right hydronephrosis per US, no need for PNT for now corrected Ca based on albumin acceptable @ 8.7 awaiting hospice replace PO4
[2016-03-31] MEDS: TPN 10%-70% CUSTOM IV SCH (13:42)
== END 2016-03-31 21:00 | disposition short-term general hospital (02) | DRG 720 ==
LOC: ER 15:41 → TELE 17:31 → MSI 03-24 16:10
PROVIDERS: ADMIT Internal Medicine; ATTEND Internal Medicine
PROC: 30233N1 Transfusion of Nonautologous Red Blood Cells into Peripheral Vein, Percutaneous Approach (ICD-10-PCS; 2016-03-11)
PROC: 3E0436Z Introduction of Nutritional Substance into Central Vein, Percutaneous Approach (ICD-10-PCS; principal; 2016-03-14)
PROC: 02HV33Z Insertion of Infusion Device into Superior Vena Cava, Percutaneous Approach (ICD-10-PCS; 2016-03-14)
DX: A41.51 Sepsis due to Escherichia coli [E. coli] (principal); R64 Cachexia; E43 Unspecified severe protein-calorie malnutrition; K63.2 Fistula of intestine; N17.9 Acute kidney failure, unspecified; E11.22 Type 2 diabetes mellitus with diabetic chronic kidney disease; E87.1 Hypo-osmolality and hyponatremia; D69.6 Thrombocytopenia, unspecified; E11.649 Type 2 diabetes mellitus with hypoglycemia without coma; L02.211 Cutaneous abscess of abdominal wall; Z66 Do not resuscitate; L03.311 Cellulitis of abdominal wall; D63.8 Anemia in other chronic diseases classified elsewhere; T50.1X5A Adverse effect of loop [high-ceiling] diuretics, initial encounter; Y92.89 Other specified places as the place of occurrence of the external cause; N39.0 Urinary tract infection, site not specified; R19.00 Intra-abdominal and pelvic swelling, mass and lump, unspecified site; N18.9 Chronic kidney disease, unspecified; G89.29 Other chronic pain; E87.5 Hyperkalemia; E83.51 Hypocalcemia; Z93.6 Other artificial openings of urinary tract status; Z90.49 Acquired absence of other specified parts of digestive tract; Z85.038 Personal history of other malignant neoplasm of large intestine; Z68.26 Body mass index [BMI] 26.0-26.9, adult; Z93.3 Colostomy status
CPT/HCPCS: 36415-UA; 71010-TC; 74150-TC; 74250-TC; 74270-TC; 76705-TC; 80048-TC; 80053-TC; 80150-TC; 80202-TC; 81001-TC; 81015-TC; 82043-90; 82270-TC; 82378-90; 82465-TC; 82570-TC; 82728-90; 82948-90; 83036-90; 83605; 83690-TC; 83735-TC; 83930-90; 84100-TC; 84134-90; 84300-TC; 84478-TC; 84550-TC; 85007-TC; 85025-TC; 85027-TC; 85049-TC; 85379-TC; 85384-TC; 85610-TC; 85730-TC; 86850-TC; 86900-TC; 86901-TC; 86922-TC; 90799; 94760; 96375; J0278; J0610; J1170; J1815; J2060; J2185; J2270; J3370; J3475; J3480; J7030; P9016; Q0164; Q9967; X6598; X7704; Z7502; Z7610